=== PATIENT | male | born 1985 | race African-American/Black ===

== ENCOUNTER 2017-02-25 16:52 | Inpatient (IN) | payer OTHER ==
--- NOTE | 2017-02-25 17:14 | PDOC ---
History of Present Illness - General Chief Complaint: Sickle Cell Crisis Stated Complaint: SICKLE CELL CRISIS Time Seen by Provider: 02/25/17 17:12 History Source: Patient Exam Limitations: No Limitations - History of Present Illness Initial Comments: 02/25/17 17:13 Patient is a 31 year old male with history of sickle cell disease presenting with 2 days of low back pain and 1 day of left chest pain he feels is consistent with a sickle cell pain crisis. The pain started in his lower back. The patient initially attempted to manage the pain with his home medications but yesterday his back pain continued to get worse and he started having left sided chest pain that was not relieved with his home medications. His pain is currently 9/10 and only moderately relieved with his home pain medication and this quickly wears off. Patient denies fever, chills, shortness of breath, headache, dizziness, abdominal pain and joint pain. Patient had a previous pain crisis in July 2015 that resulted in hospital admission. Patient states his previous crisis was more painful than today and involved his whole body, primarily in his chest and joints. Today the pain is localized to his left chest and lower back. Patient's home medicine includes: Hydroxyurea 2 g per day , folic acid 1 mg per day, 15 mg immediate release morphine q4hr and 15 mg extended release morphine q6hr. Patient currently moved here from [place] and does not currently have a local PCP. Prior he was seen at the [facility] Past History - Past Medical History Allergies/Adverse Reactions: Allergies Allergy/AdvReac Type Severity Reaction Status Date / Time No Known Allergies Allergy Verified 02/25/17 17:07 Home Medications: Ambulatory Orders NK [No Known Home Medication] 02/25/17 Anemia: Yes (SICKLE CELL) - Psycho/Social/Smoking Cessation Hx Anxiety: No Suicidal Ideation: No Smoking History: Current every day smoker Number of Cigarettes Smoked Daily: 10 Information on smoking cessation initiated: No Hx Alcohol Use: No Drug/Substance Use Hx: No Substance Use Type: None Review of Systems - Review of Systems Able to Perform ROS?: Yes Is the patient limited Iraqi proficient: No Constitutional: No: Chills, Fever HEENTM: No: Throat Pain Respiratory: No: Cough, Shortness of Breath, Wheezing Cardiac (ROS): Yes: Chest Pain (Left side). No: Edema, Palpitations ABD/GI: Yes: Other (Denies abdominal pain). No: Constipated, Nausea, Vomiting Musculoskeletal: No: Joint Pain, Muscle Pain All Other Systems: Reviewed and Negative *Physical Exam - Vital Signs Last Vital Signs Temp Pulse Resp BP Pulse Ox 98.5 F 84 16 129/61 95 02/25/17 17:05 02/25/17 17:05 02/25/17 17:05 02/25/17 17:05 02/25/17 17:05 - Physical Exam General Appearance: Yes: Nourished HEENT: positive: Other (poor dentation) Respiratory/Chest: positive: Chest Tender, Lungs Clear, Normal Breath Sounds. negative: Respiratory Distress, Accessory Muscle Use Cardiovascular: positive: Regular Rhythm, Regular Rate, Systolic Murmur (2/6) Gastrointestinal/Abdominal: positive: Normal Bowel Sounds, Flat, Soft. negative : Tender, Distended, Guarding, Rebound, Tenderness, Hepatomegaly, Spleenomegaly Musculoskeletal: positive: Normal Inspection, Other (Tender to palpation over coccyx). negative: CVA Tenderness Integumentary: positive: Normal Color, Dry, Warm Neurologic: positive: director of business applications II-XII NML intact, Fully Oriented, Alert, Normal Mood/ Affect ED Treatment Course - LABORATORY CBC & Chemistry Diagram: 02/25/17 18:00 02/25/17 18:00 Medical Decision Making - Medical Decision Making 02/25/17 17:14 31 yo male with history of sickle cell and a previous pain crisis requiring hospitalization presenting with pain in his chest and lower back concerning for pain crisis. Ddx includes but is not limited to sickle cell crisis and numerous ischemic and thrombotic complications including acute chest syndrome, ACS ECG Pain Management Fluids and O2 Monitor CBC with Retculocytes, CMP CXR Cardiac enzymes Monitor and reevaluate patient Consider admission based on pain control 02/25/17 18:26 Patient saturations in the low 90s so he was placed on 1L by NC. 02/25/17 18:36 CBC WBC 13.0 K/mm3 (4.0-10.0) H 02/25/17 18:00 RBC 2.06 M/mm3 (4.00-5.60) L 02/25/17 18:00 Hgb 7.6 GM/dL (11.7-16.9) L 02/25/17 18:00 Hct 21.2 % (35.4-49) L 02/25/17 18:00 MCV 102.6 fl (80-96) H 02/25/17 18:00 MCH 36.9 pg (25.7-33.7) H 02/25/17 18:00 MCHC 36.0 g/dl (32.0-35.9) H 02/25/17 18:00 RDW 19.1 % (11.9-15.9) H 02/25/17 18:00 Plt Count 454 K/MM3 (134-434) H 02/25/17 18:00 MPV 7.5 fl (7.5-11.1) 02/25/17 18:00 Neutrophils % 57.0 % (42.8-82.8) 02/25/17 18:00 Lymphocytes % 24.6 % (8-40) 02/25/17 18:00 Monocytes % 13.6 % (3.8-10.2) H 02/25/17 18:00 Eosinophils % 4.3 % (0-4.5) 02/25/17 18:00 Basophils % 0.5 % (0-2.0) 02/25/17 18:00 Nucleated RBC % No Result Required. 02/25/17 18:00 Toxic Granulation No Result Required. 02/25/17 18:00 [place] Bodies No Result Required. 02/25/17 18:00 [place] Rods No Result Required. 02/25/17 18:00 Platelet Estimate Slt increase 02/25/17 18:00 Polychromasia 1+ 02/25/17 18:00 Poikilocytosis 1+ 02/25/17 18:00 Anisocytosis 1+ 02/25/17 18:00 Macrocytosis 1+ 02/25/17 18:00 Sickle Cells 1+ 02/25/17 18:00 Target Cells 1+ 02/25/17 18:00 Tear Drop Cells No Result Required. 02/25/17 18:00 Ovalocytes No Result Required. 02/25/17 18:00 [place] Bodies Seen 02/25/17 18:00 [place] Rings No Result Required. 02/25/17 18:00 Acanthocytes (Spur) No Result Required. 02/25/17 18:00 Morphology Comment Slide scanned 02/25/17 18:00 Retic Count 11.91 % (0.5-1.5) H* 02/25/17 18:00 Anemia with elevated reticulocyte count (11.91) and SS(+), consistent with SSA and a pain crisis. CMP Sodium 135 mmol/L (136-145) L 02/25/17 18:00 Potassium 4.4 mmol/L (3.5-5.1) 02/25/17 18:00 Chloride 102 mmol/L (98-107) 02/25/17 18:00 Carbon Dioxide 26 mmol/L (21-32) 02/25/17 18:00 Anion Gap 7 (8-16) L 02/25/17 18:00 BUN 9 mg/dL (7-18) 02/25/17 18:00 Creatinine 0.6 mg/dL (0.7-1.3) L 02/25/17 18:00 Creat Clearance w eGFR > 60 (>60) 02/25/17 18:00 Random Glucose 111 mg/dL (74-106) H 02/25/17 18:00 Calcium 9.0 mg/dL (8.5-10.1) 02/25/17 18:00 Total Bilirubin 3.2 mg/dL (0.2-1.0) H 02/25/17 18:00 AST 25 U/L (15-37) 02/25/17 18:00 ALT 31 U/L (12-78) 02/25/17 18:00 Alkaline Phosphatase 92 U/L (45-117) 02/25/17 18:00 Creatine Kinase 51 IU/L (39-308) 02/25/17 18:00 Troponin I < 0.02 ng/ml (0.00-0.05) 02/25/17 18:00 Total Protein 7.7 g/dl (6.4-8.2) 02/25/17 18:00 Albumin 4.0 g/dl (3.4-5.0) 02/25/17 18:00 Grossly within normal limits, Elebated bilirubin consistent with hemolysis. Cardiac enzymes non concerning. EKG: Normal rate and rhythm, delta waves consistent with WPW. Patient denies history of symptoms related to WPW Patient reports pain poorly managed with 1.5 mg total Dilaudid Patient care signed out to Dr. Rodriguez Consider admission if unable to adequately manage pain *DC/Admit/Observation/Transfer Diagnosis at time of Disposition: Sickle cell crisis
[2017-02-25] MEDS ORDERED: HYDROmorphone HCL CARPU-JECT 2 MG/1 ML DISP.SYRIN IVPUSH ONE (17:42)
[2017-02-25] MEDS ORDERED: SODIUM CHLORIDE 1,000 ML IV ONE (17:42)
--- NOTE | 2017-02-25 17:47 | PDOC ---
Attending Attestation - Resident Resident Name: Brijesh Sarmiento - ED Attending Attestation I have performed the following: I have examined & evaluated the patient, The case was reviewed & discussed with the resident, I agree w/resident's findings & plan, Exceptions are as noted - HPI HPI: 02/25/17 18:43 31y M hx of sickle cell disease on HU, FA, morphine PO presents with chest pain and back pain since saturday, no associated fever/chills. cough, n/v abd pain, schmidt. no prior complications of SS, last crisis was back in jul 2015. pts exam noted for mild reporudicble tenderness to the chest exam otherwise unremarakble and pt is in no distresss suspect apin crisis will treat pain hydration narcoitic cbc, retic, cmp, trop, ekg cxr to r/o acute chest 02/25/17 19:13 pt requiring multiple narcotic meds +anemia, +retic count anticpate admission for pain mainagement. cxr pending - Physicial Exam PE: 02/26/17 16:24 s mel torres - Medical Decision Making 02/26/17 16:24 see kendy e
[2017-02-25] MEDS ORDERED: HYDROmorphone HCL CARPU-JECT 1 MG/1 ML DISP.SYRIN ONE ×3 (18:17→20:08)
[2017-02-25 18:25] LABS: BASOPHIL 0.5 % (0-2.0); EOSINOPHIL 4.3 % (0-4.5); MCH 36.9 pg (25.7-33.7); MEAN CELL VOLUME 102.6 fl (80-96); MEAN PLT VOLUME 7.5 fl (7.5-11.1); PLATELET COUNT 454 K/MM3 (134-434); RDW 19.1 % (11.9-15.9)
[2017-02-25] MEDS ORDERED: HYDROmorphone HCL CARPU-JECT 1 MG/1 ML DISP.SYRIN IVPUSH ONE ×2 (18:41→19:52)
[2017-02-25 18:56] LABS: ANION GAP 7 (8-16); BILIRUBIN,TOTAL 3.2 mg/dL (0.2-1.0); CO2 26 mmol/L (21-32); CREATININE 0.6 mg/dL (0.7-1.3); GLUCOSE,RANDOM 111 mg/dL (74-106); SGOT/AST 25 U/L (15-37); SGPT/ALT 31 U/L (12-78); TOT PROT 7.7 g/dl (6.4-8.2)
[2017-02-25 18:57] LABS: ALK PHOS 92 U/L (45-117); CPK 51 IU/L (39-308); TROPONIN I < 0.02 ng/ml (0.00-0.05)
[2017-02-25 19:02] LABS: POLYCHROMASIA 1+
[2017-02-25 19:03] LABS: ANISOCYTOSIS 1+; MACROCYTOSIS 1+; POIKILOCYTOSIS 1+; TARGET CELLS 1+
[2017-02-25 19:08] LABS: RBC MORPHOLOGY COMMENT SLIDE SCANNED
[2017-02-25 19:10] LABS: HOWELL-JOLLY BODIES SEEN
[2017-02-25 20:15] LABS: PLATELET ESTIMATE SLT INCREASE
--- NOTE | 2017-02-25 20:50 | PDOC ---
*Physical Exam - Vital Signs Last Vital Signs Temp Pulse Resp BP Pulse Ox 98.5 F 84 16 129/61 100 02/25/17 17:05 02/25/17 17:05 02/25/17 17:05 02/25/17 17:05 02/25/17 17:30 <Adeel Whalen - Last Filed: 02/25/17 20:49> - Vital Signs Last Vital Signs Temp Pulse Resp BP Pulse Ox 98.5 F 84 16 129/61 100 02/25/17 17:05 02/25/17 17:05 02/25/17 17:05 02/25/17 17:05 02/25/17 17:30 <Ronit Rahman - Last Filed: 02/25/17 21:02> ED Treatment Course - LABORATORY CBC & Chemistry Diagram: 02/25/17 18:00 02/25/17 18:00 - ADDITIONAL ORDERS Additional order review: Laboratory Results 02/25/17 02/25/17 02/25/17 19:15 18:00 18:00 Sodium 135 L Potassium 4.4 Chloride 102 Carbon Dioxide 26 Anion Gap 7 L BUN 9 Creatinine 0.6 L Creat Clearance w eGFR > 60 Random Glucose 111 H Calcium 9.0 Total Bilirubin 3.2 H AST 25 ALT 31 Alkaline Phosphatase 92 Creatine Kinase 51 Troponin I < 0.02 Total Protein 7.7 Albumin 4.0 Blood Type O POSITIVE Antibody Screen Positive H 02/25/17 18:00 RBC 2.06 L MCV 102.6 H MCHC 36.0 H RDW 19.1 H MPV 7.5 Neutrophils % 57.0 Lymphocytes % 24.6 Monocytes % 13.6 H Eosinophils % 4.3 Basophils % 0.5 - Medications Given in the ED: ED Medications Discontinued Medications Generic Name Dose Route Start Last Admin Trade Name Freq PRN Reason Stop Dose Admin Hydromorphone HCl 0.5 mg 02/25/17 17:42 02/25/17 18:23 Dilaudid Injection - IVPUSH 02/25/17 17:43 0.5 mg ONCE ONE Administration Hydromorphone HCl 1 mg 02/25/17 18:41 02/25/17 19:01 Dilaudid Injection - IVPUSH 02/25/17 18:42 1 mg ONCE ONE Administration Hydromorphone HCl 1 mg 02/25/17 19:52 02/25/17 20:15 Dilaudid Injection - IVPUSH 02/25/17 19:53 1 mg ONCE ONE Administration Sodium Chloride 1,000 mls @ 1,000 mls/hr 02/25/17 17:42 02/25/17 18:23 Normal Saline - IV 02/25/17 18:41 1,000 mls/hr .Q1H ONE Administration <Adeel Whalen - Last Filed: 02/25/17 20:49> - LABORATORY CBC & Chemistry Diagram: 02/25/17 18:00 02/25/17 18:00 - ADDITIONAL ORDERS Additional order review: Laboratory Results 02/25/17 02/25/17 02/25/17 19:15 18:00 18:00 Sodium 135 L Potassium 4.4 Chloride 102 Carbon Dioxide 26 Anion Gap 7 L BUN 9 Creatinine 0.6 L Creat Clearance w eGFR > 60 Random Glucose 111 H Calcium 9.0 Total Bilirubin 3.2 H AST 25 ALT 31 Alkaline Phosphatase 92 Creatine Kinase 51 Troponin I < 0.02 Total Protein 7.7 Albumin 4.0 Blood Type O POSITIVE Antibody Screen Positive H 02/25/17 18:00 RBC 2.06 L MCV 102.6 H MCHC 36.0 H RDW 19.1 H MPV 7.5 Neutrophils % 57.0 Lymphocytes % 24.6 Monocytes % 13.6 H Eosinophils % 4.3 Basophils % 0.5 - Medications Given in the ED: ED Medications Discontinued Medications Generic Name Dose Route Start Last Admin Trade Name Freq PRN Reason Stop Dose Admin Hydromorphone HCl 0.5 mg 02/25/17 17:42 02/25/17 18:23 Dilaudid Injection - IVPUSH 02/25/17 17:43 0.5 mg ONCE ONE Administration Hydromorphone HCl 1 mg 02/25/17 18:41 02/25/17 19:01 Dilaudid Injection - IVPUSH 02/25/17 18:42 1 mg ONCE ONE Administration Hydromorphone HCl 1 mg 02/25/17 19:52 02/25/17 20:15 Dilaudid Injection - IVPUSH 02/25/17 19:53 1 mg ONCE ONE Administration Sodium Chloride 1,000 mls @ 1,000 mls/hr 02/25/17 17:42 02/25/17 18:23 Normal Saline - IV 02/25/17 18:41 1,000 mls/hr .Q1H ONE Administration <Ronit Rahman - Last Filed: 02/25/17 21:02> Medical Decision Making - Medical Decision Making 02/25/17 21:01 Dr. Trevino paged via phone answering service. Patient's case was discussed. Patient admitted under Dr. Franco services. <Ronit Rahman - Last Filed: 02/25/17 21:02> *DC/Admit/Observation/Transfer - Discharge Dispostion Admit: Yes <Adeel Whalen - Last Filed: 02/25/17 20:49> - Attestations Scribe Attestion: 02/25/17 21:02 Documentation prepared by Ronit Rahman, acting as medical care evaluation specialist for Adeel Whalen DO. <Ronit Rahman - Last Filed: 02/25/17 21:02> Diagnosis at time of Disposition: Sickle cell crisis
--- NOTE | 2017-02-25 22:58 | PDOC ---
*Physical Exam - Vital Signs Last Vital Signs Temp Pulse Resp BP Pulse Ox 98.5 F 82 20 118/63 96 02/25/17 17:05 02/25/17 22:42 02/25/17 22:42 02/25/17 22:42 02/25/17 22:42 - Physical Exam General Appearance: Yes: Nourished, Appropriately Dressed, Obese Neck: positive: Trachea midline, Supple Respiratory/Chest: positive: Lungs Clear, Normal Breath Sounds Cardiovascular: positive: Regular Rhythm, Regular Rate Gastrointestinal/Abdominal: positive: Normal Bowel Sounds, Soft Integumentary: positive: Normal Color, Dry, Warm Neurologic: positive: blog writer II-XII NML intact, Fully Oriented, Alert ED Treatment Course - LABORATORY CBC & Chemistry Diagram: 02/25/17 18:00 02/25/17 18:00 - ADDITIONAL ORDERS Additional order review: Laboratory Results 02/25/17 02/25/17 02/25/17 19:15 18:00 18:00 Sodium 135 L Potassium 4.4 Chloride 102 Carbon Dioxide 26 Anion Gap 7 L BUN 9 Creatinine 0.6 L Creat Clearance w eGFR > 60 Random Glucose 111 H Calcium 9.0 Total Bilirubin 3.2 H AST 25 ALT 31 Alkaline Phosphatase 92 Creatine Kinase 51 Troponin I < 0.02 Total Protein 7.7 Albumin 4.0 Blood Type O POSITIVE Antibody Screen Positive H 02/25/17 18:00 RBC 2.06 L MCV 102.6 H MCHC 36.0 H RDW 19.1 H MPV 7.5 Neutrophils % 57.0 Lymphocytes % 24.6 Monocytes % 13.6 H Eosinophils % 4.3 Basophils % 0.5 - Medications Given in the ED: ED Medications Discontinued Medications Generic Name Dose Route Start Last Admin Trade Name Joseq PRN Reason Stop Dose Admin Hydromorphone HCl 0.5 mg 02/25/17 17:42 02/25/17 18:23 Dilaudid Injection - IVPUSH 02/25/17 17:43 0.5 mg ONCE ONE Administration Hydromorphone HCl 1 mg 02/25/17 18:41 02/25/17 19:01 Dilaudid Injection - IVPUSH 02/25/17 18:42 1 mg ONCE ONE Administration Hydromorphone HCl 1 mg 02/25/17 19:52 02/25/17 20:15 Dilaudid Injection - IVPUSH 02/25/17 19:53 1 mg ONCE ONE Administration Sodium Chloride 1,000 mls @ 1,000 mls/hr 02/25/17 17:42 02/25/17 18:23 Normal Saline - IV 02/25/17 18:41 1,000 mls/hr .Q1H ONE Administration Medical Decision Making - Medical Decision Making 02/25/17 22:59 Patient is a 31 y.o. male with a PMH of SCD who presents with pain in his lower back and chest consistent with his the pain experienced on his previous episodes of SC pain. CBC showed expected anemia with appropriate reticulocytic response. CXR was negative for any acute cardiopulmonary process however showed a minimal R pleural effusion and 1 cm nodular opacity in the R Lateral lung base. 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 *DC/Admit/Observation/Transfer Diagnosis at time of Disposition: Sickle cell crisis
[2017-02-26] MEDS ORDERED: SODIUM CHLORIDE 1,000 ML IV SCH ×2 (00:15→11:00)
[2017-02-26] MEDS: HYDROmorphone HCL CARPU-JECT 1 MG/1 ML DISP.SYRIN IVPB PRN ×2 (00:16→06:43)
[2017-02-26 02:00] VITALS: BMI 21.0
[2017-02-26 07:50] LABS: BASOPHIL 0.5 % (0-2.0); EOSINOPHIL 4.4 % (0-4.5); MCH 36.8 pg (25.7-33.7); MCHC 35.7 g/dl (32.0-35.9); MEAN CELL VOLUME 103.1 fl (80-96); MEAN PLT VOLUME 7.5 fl (7.5-11.1); NEUTROPHILS 61.7 % (42.8-82.8); PLATELET COUNT 392 K/MM3 (134-434); RDW 18.2 % (11.9-15.9); WHITE BLOOD COUNT 11.5 K/mm3 (4.0-10.0)
[2017-02-26 08:03] LABS: CALCIUM 8.4 mg/dL (8.5-10.1)
[2017-02-26 08:09] LABS: ALBUMIN 3.7 g/dl (3.4-5.0); ALK PHOS 89 U/L (45-117); ANION GAP 7 (8-16); BILIRUBIN,TOTAL 2.9 mg/dL (0.2-1.0); CO2 26 mmol/L (21-32); CREATININE 0.4 mg/dL (0.7-1.3); GLUCOSE,RANDOM 102 mg/dL (74-106); SGOT/AST 18 U/L (15-37); SGPT/ALT 27 U/L (12-78); TOT PROT 6.9 g/dl (6.4-8.2)
[2017-02-26] MEDS ORDERED: HYDROmorphone HCL CARPU-JECT 1 MG/1 ML DISP.SYRIN IVPB ONE (09:00)
[2017-02-26] MEDS ORDERED: HYDROmorphone HCL CARPU-JECT 2 MG/1 ML DISP.SYRIN IVPB PRN ×2 (10:49→14:49)
[2017-02-26] MEDS: oxyCODONE HCL 5 MG TABLET PO PRN ×3 (12:42→20:56)
--- NOTE | 2017-02-26 12:57 | CONSULT ---
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 hx of sickle cell disease on HU (2g daily) , FA, morphine PO (15mg twice daily) presents with chest pain and back pain since saturday, no associated fever/ chills. no cough, n/v abd pain, schmidt. no prior complications of SS, last crisis was back in jul 2015. Febrile to 100.6 in the ER Admitted was given IVF. Pt seen and examined,Used to follow up with doctor at [facility]. - History Source History Provided By: Patient, Medical Record Limitations to Obtaining History: No Limitations - Alcohol/Substance Use Hx Alcohol Use: No - Smoking History Smoking history: Current every day smoker Aproximately how many cigarettes per day: 10 Home Medications - Allergies Allergies/Adverse Reactions: Allergies Allergy/AdvReac Type Severity Reaction Status Date / Time No Known Allergies Allergy Verified 02/25/17 17:07 - Home Medications Home Medications: Ambulatory Orders NK [No Known Home Medication] 02/25/17 Review of Systems - Review of Systems Constitutional: reports: Weakness. denies: Loss of Appetite, Night Sweats, Unintentional Wgt. Loss HENT: denies: Difficult Swallowing Neck: denies: Decreased ROM, Lumps, Pain on Movement Cardiovascular: reports: Chest Pain, Other (pleuritic left side). denies: Shortness of Breath Gastrointestinal: denies: Abdominal Pain, Diarrhea, Nausea, Vomiting Musculoskeletal: reports: Back Pain, Extremity Pain Hematology/Lymphatic: denies: Easily Bruised, Excessive Bleeding, Swollen Glands Physical Exam Vital Signs: Vital Signs Temperature 98.2 F 02/26/17 06:00 Pulse Rate 64 02/26/17 11:51 Respiratory Rate 16 02/26/17 11:51 Blood Pressure 132/56 02/26/17 11:51 O2 Sat by Pulse Oximetry (%) 99 02/26/17 05:03 Constitutional: Yes: No Distress, Calm Eyes: Yes: Sclera Icterus, Other (mild) HENT: Yes: Atraumatic, Normocephalic Neck: Yes: Supple, Trachea Midline Cardiovascular: Yes: Regular Rate and Rhythm Respiratory: Yes: Regular, CTA Bilaterally. 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 VOC pain crises Plan: -pain control, will continue present for now, might need a standing long acting regimen and a breakthrough prn -IVF -F.u vitals -PRBC ordered ( ab screen positive, awaiting characterization) .But pt very relcutatnt to take PRBC as he was told that he has iron overload and was told to avoid tramsfusions. he did agreed to get a repeat CBC this pm and if still down trending will consider PRBC -Incentive spirometer -resum hydrea upon discharge, he is on 2g daily -added Hemoglobin electrophoresis to the existing labs -CXR with bibasilar atelectasis, one cm nodular opacity also , Incentive spirometer. was febrile to 100.6 in the ER, will give abx, with ceftriaxone/ azithromycin,pending course will need to change to PO levaquin or moxi. 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 will follow discussed with [facility]
[2017-02-26] MEDS ORDERED: HYDROXYUREA 500 MG CAPSULE PO SCH (13:30)
[2017-02-26] MEDS ORDERED: cefTRIAXone SODIUM 1 GM VIAL ONE (13:35)
[2017-02-26] MEDS ORDERED: DEXTROSE 5%-WATER - 50 ML IVPB ONE (13:36)
[2017-02-26] MEDS: HYDROmorphone HCL CARPU-JECT 2 MG/1 ML DISP.SYRIN IVPB PRN ×3 (13:56→22:42)
[2017-02-26] MEDS: CEFTRIAXONE 1 GM in DEXTROSE 5%-WATER - 50 ML IVPB SCH (14:20)
[2017-02-26] MEDS: AZITHROMYCIN 250 MG TABLET (FP) PO SCH (14:20)
[2017-02-26 18:43] LABS: MCH 36.3 pg (25.7-33.7); MCHC 34.8 g/dl (32.0-35.9); MEAN CELL VOLUME 104.2 fl (80-96); MEAN PLT VOLUME 7.8 fl (7.5-11.1); PLATELET COUNT 435 K/MM3 (134-434); RDW 17.8 % (11.9-15.9); WHITE BLOOD COUNT 11.4 K/mm3 (4.0-10.0)
--- NOTE | 2017-02-26 20:18 | HP ---
Admitting History and Physical - Primary Care Physician PCP: Chilo Franco - Admission History of Present Illness: 31 year old male with history of sickle cell disease presenting with 2 days of low back pain and 1 day of left chest pain he feels is consistent with a sickle cell pain crisis. The pain started in his lower back. The patient initially attempted to manage the pain with his home medications but pain continued to get worse and he started having left sided chest pain that was not relieved with his home medications. - Past Medical History Heme/Onc: Yes: Sickle Cell Disease - Smoking History Smoking history: Current every day smoker Aproximately how many cigarettes per day: 10 - Alcohol/Substance Use Hx Alcohol Use: No Home Medications - Allergies Allergies/Adverse Reactions: Allergies Allergy/AdvReac Type Severity Reaction Status Date / Time No Known Allergies Allergy Verified 02/25/17 17:07 - Home Medications Home Medications: Ambulatory Orders NK [No Known Home Medication] 02/25/17 Physical Examination Vital Signs: Vital Signs Temperature 99.9 F H 02/26/17 18:00 Pulse Rate 70 02/26/17 18:00 Respiratory Rate 18 02/26/17 18:00 Blood Pressure 121/42 02/26/17 18:00 O2 Sat by Pulse Oximetry (%) 99 02/26/17 05:03 Constitutional: Yes: No Distress HENT: Yes: Atraumatic Neck: Yes: Supple Cardiovascular: Yes: Regular Rate and Rhythm Respiratory: Yes: CTA Bilaterally Gastrointestinal: Yes: Normal Bowel Sounds Extremities: Yes: WNL Edema: No Neurological: Yes: Alert, Oriented Labs: CBC, BMP 02/26/17 17:45 02/26/17 07:00 Problem List - Problems (1) Sickle cell crisis Assessment/Plan: ivf prn pain meds on iv abx to cover for infection hematology consult Code(s): D57.00 - HB-SS DISEASE WITH CRISIS, UNSPECIFIED Assessment/Plan Laboratory Tests 02/25/17 02/25/17 02/25/17 18:00 18:00 18:00 WBC 13.0 H RBC 2.06 L Hgb 7.6 L Hct 21.2 L MCV 102.6 H MCH 36.9 H MCHC 36.0 H RDW 19.1 H Plt Count 454 H MPV 7.5 Neutrophils % 57.0 Lymphocytes % 24.6 Monocytes % 13.6 H Eosinophils % 4.3 Basophils % 0.5 Nucleated RBC % No Result Required. Toxic Granulation No Result Required. Dohle Bodies No Result Required. Amarilys Rods No Result Required. Platelet Estimate Slt increase Polychromasia 1+ Poikilocytosis 1+ Anisocytosis 1+ Macrocytosis 1+ Sickle Cells 1+ Target Cells 1+ Tear Drop Cells No Result Required. Ovalocytes No Result Required. Orozco-Wingate Bodies Seen [place] Rings No Result Required. Acanthocytes (Spur) No Result Required. Morphology Comment Slide scanned Retic Count 11.91 H* Sodium Potassium Chloride Carbon Dioxide Anion Gap BUN Creatinine Creat Clearance w eGFR Random Glucose Calcium Total Bilirubin AST ALT Alkaline Phosphatase Creatine Kinase Troponin I Total Protein Albumin Blood Type Cancelled Antibody Screen Cancelled Antibody Identification Crossmatch Spec Expiration Date Cancelled 02/25/17 02/25/17 02/25/17 18:00 18:00 19:15 WBC RBC Hgb Hct MCV MCH MCHC RDW Plt Count MPV Neutrophils % Lymphocytes % Monocytes % Eosinophils % Basophils % Nucleated RBC % Toxic Granulation Dohle Bodies Amarilys Rods Platelet Estimate Polychromasia Poikilocytosis Anisocytosis Macrocytosis Sickle Cells Target Cells Tear Drop Cells Ovalocytes Orozco-[place]ing[place] Bodies [place] Rings Acanthocytes (Spur) Morphology Comment Retic Count Sodium 135 L Potassium 4.4 Chloride 102 Carbon Dioxide 26 Anion Gap 7 L BUN 9 Creatinine 0.6 L Creat Clearance w eGFR > 60 Random Glucose 111 H Calcium 9.0 Total Bilirubin 3.2 H AST 25 ALT 31 Alkaline Phosphatase 92 Creatine Kinase 51 Troponin I < 0.02 Total Protein 7.7 Albumin 4.0 Blood Type O POSITIVE Antibody Screen Positive H Antibody Identification WARM AUTOIMMUNE HEMO ANEMIA Crossmatch Spec Expiration Date 02/26/17 02/26/17 02/26/17 07:00 07:00 07:00 WBC 11.5 H RBC 1.88 L Hgb 6.9 L* Hct 19.4 L MCV 103.1 H MCH 36.8 H MCHC 35.7 RDW 18.2 H Plt Count 392 MPV 7.5 Neutrophils % 61.7 Lymphocytes % 19.2 D Monocytes % 14.2 H Eosinophils % 4.4 Basophils % 0.5 Nucleated RBC % Toxic Granulation Dohle Bodies Amarilys Rods Platelet Estimate Polychromasia Poikilocytosis Anisocytosis Macrocytosis Sickle Cells Target Cells Tear Drop Cells Ovalocytes Orozco-[place]ing[place] Bodies [place] Rings Acanthocytes (Spur) Morphology Comment Retic Count Sodium 137 Potassium 4.4 Chloride 104 Carbon Dioxide 26 Anion Gap 7 L BUN 7 D Creatinine 0.4 L D Creat Clearance w eGFR > 60 Random Glucose 102 Calcium 8.4 L Total Bilirubin 2.9 H AST 18 D ALT 27 Alkaline Phosphatase 89 Creatine Kinase Troponin I Total Protein 6.9 Albumin 3.7 Blood Type Antibody Screen Antibody Identification Crossmatch See Detail Spec Expiration Date 02/26/17 17:45 WBC 11.4 H RBC 2.04 L Hgb 7.4 L Hct 21.2 L MCV 104.2 H MCH 36.3 H MCHC 34.8 RDW 17.8 H Plt Count 435 H MPV 7.8 Neutrophils % Lymphocytes % Monocytes % Eosinophils % Basophils % Nucleated RBC % Toxic Granulation Dohle Bodies Amarilys Rods Platelet Estimate Polychromasia Poikilocytosis Anisocytosis Macrocytosis Sickle Cells Target Cells Tear Drop Cells Ovalocytes Orozco-[place]ing[place] Bodies [place] Rings Acanthocytes (Spur) Morphology Comment Retic Count Sodium Potassium Chloride Carbon Dioxide Anion Gap BUN Creatinine Creat Clearance w eGFR Random Glucose Calcium Total Bilirubin AST ALT Alkaline Phosphatase Creatine Kinase Troponin I Total Protein Albumin Blood Type Antibody Screen Antibody Identification Crossmatch Spec Expiration Date Active Medications Generic Name Dose Route Start Last Admin Trade Name Freq PRN Reason Stop Dose Admin Azithromycin 500 mg 02/26/17 13:30 02/26/17 14:20 Zithromax - PO 500 mg DAILY AARON Administration Hydromorphone HCl 2 mg 02/26/17 13:30 02/26/17 18:04 Dilaudid Injection - IVPB 2 mg Q4H PRN Administration Ceftriaxone Sodium 1 gm/ 50 mls @ 100 mls/hr 02/26/17 13:30 02/26/17 14:20 Dextrose IVPB 100 mls/hr DAILY AARON Administration Sodium Chloride 1,000 mls @ 75 mls/hr 02/26/17 19:30 Normal Saline - IV ASDIR AARON Oxycodone HCl 5 mg 02/26/17 00:13 02/26/17 16:55 Roxicodone - PO 5 mg Q4H PRN Administration
[2017-02-26] MEDS: SODIUM CHLORIDE 1,000 ML IV SCH (20:56)
[2017-02-26] MEDS: HEPARIN NA (PORCINE) 5,000 UNITS/ML 1ML VIAL SQ SCH (21:01)
[2017-02-26] MEDS: NICOTINE 21 MG/24 HOURS TOPICAL PATCH TD SCH (22:42)
[2017-02-27] MEDS: SODIUM CHLORIDE 1,000 ML IV SCH ×2 (01:41→21:39)
[2017-02-27] MEDS: HYDROmorphone HCL CARPU-JECT 2 MG/1 ML DISP.SYRIN IVPB PRN ×5 (03:09→22:38)
[2017-02-27] MEDS: oxyCODONE HCL 5 MG TABLET PO PRN ×3 (06:04→16:12)
[2017-02-27] MEDS: HEPARIN NA (PORCINE) 5,000 UNITS/ML 1ML VIAL SQ SCH ×3 (06:41→21:37)
[2017-02-27 07:36] LABS: MCH 37.1 pg (25.7-33.7); MEAN PLT VOLUME 7.2 fl (7.5-11.1); PLATELET COUNT 426 K/MM3 (134-434); RDW 17.4 % (11.9-15.9); WHITE BLOOD COUNT 10.9 K/mm3 (4.0-10.0)
[2017-02-27 07:56] LABS: ALBUMIN 3.4 g/dl (3.4-5.0); ANION GAP 5 (8-16); CALCIUM 8.6 mg/dL (8.5-10.1); CO2 26 mmol/L (21-32); GLUCOSE,RANDOM 88 mg/dL (74-106); SGOT/AST 16 U/L (15-37); SGPT/ALT 24 U/L (12-78)
[2017-02-27 07:58] LABS: ALK PHOS 82 U/L (45-117); BILIRUBIN,DIRECT 0.4 mg/dL (0.0-0.2); BILIRUBIN,TOTAL 3.1 mg/dL (0.2-1.0); CREATININE 0.4 mg/dL (0.7-1.3); TOT PROT 6.9 g/dl (6.4-8.2)
[2017-02-27] MEDS ORDERED: PT OWN MED DRAWER 7, Y5N ONE (09:48)
[2017-02-27] MEDS ORDERED: DEXTROSE 5%-WATER - 50 ML IVPB ONE (09:48)
[2017-02-27] MEDS ORDERED: cefTRIAXone SODIUM 1 GM VIAL ONE (09:48)
[2017-02-27] MEDS: CEFTRIAXONE 1 GM in DEXTROSE 5%-WATER - 50 ML IVPB SCH (09:50)
[2017-02-27] MEDS: AZITHROMYCIN 250 MG TABLET (FP) PO SCH (09:50)
[2017-02-27] MEDS: NICOTINE 21 MG/24 HOURS TOPICAL PATCH TD SCH (09:50)
--- NOTE | 2017-02-27 11:37 | CON.PULM ---
Consult Consult Specialty:: PULMONARY Referred by:: Dr. Franco Reason for Consultation:: lung nodule - History of Present Illness Chief Complaint: chest pain History of Present Illness: 31yo male with h/o sickle cell disease (SS) who presents with chest and back pain typical of his sickle cell crisis. Denies any shortness of breath, cough, fevers or chills. Admission CXR showing RLL nodule. States that his last CXR which was done in [place] in Aug/Sep was reportedly normal. He is a 1/2 PPD smoker since age 15. No family history of lung cancer, maternal grandmother with gastric ca. No subjective fevers, chills or sweats. No unintentional weight loss. Denies any contact with people with TB, last PPD was remote but was negative. - History Source History Provided By: Patient, Medical Record Limitations to Obtaining History: No Limitations - Past Medical History Heme/Onc: Yes: Sickle Cell Disease - Alcohol/Substance Use Hx Alcohol Use: No - Smoking History Smoking history: Current every day smoker Aproximately how many cigarettes per day: 10 Home Medications - Allergies Allergies/Adverse Reactions: Allergies Allergy/AdvReac Type Severity Reaction Status Date / Time No Known Allergies Allergy Verified 02/25/17 17:07 - Home Medications Home Medications: Ambulatory Orders NK [No Known Home Medication] 02/25/17 Family Disease History - Family Disease History Family Disease History: CA: Grandparent (gastric) Review of Systems - Review of Systems Constitutional: denies: Chills, Fever Eyes: denies: Recent Change in Vision HENT: denies: Nasal Congestion, Throat Pain Neck: denies: Stiffness, Tenderness Cardiovascular: reports: Chest Pain. denies: Edema, Shortness of Breath Respiratory: denies: Cough, Hemoptysis, SOB, SOB on Exertion, Wheezing Gastrointestinal: denies: Abdominal Pain, Nausea, Vomiting Genitourinary: denies: Dysuria, Hematuria Neurological: denies: Dizziness, Headache Endocrine: denies: Unexplained Weight Loss Physical Exam Vital Sings: Vital Signs Temperature 98.4 F 02/27/17 06:00 Pulse Rate 76 02/27/17 09:32 Respiratory Rate 16 02/27/17 09:32 Blood Pressure 121/65 02/27/17 09:32 O2 Sat by Pulse Oximetry (%) 96 02/27/17 09:00 Constitutional: Yes: Calm Eyes: Yes: Conjunctiva Clear, EOM Intact HENT: Yes: Atraumatic, Normocephalic Neck: Yes: Supple, Trachea Midline Cardiovascular: Yes: Regular Rate and Rhythm Respiratory: Yes: Rales (few basilar rales) ...Clubbing: No Gastrointestinal: Yes: Normal Bowel Sounds, Soft. No: Tenderness Edema: No Neurological: Yes: Alert, Oriented Labs: CBC, BMP 02/27/17 06:10 02/27/17 06:10 Imaging - Results Chest X-ray: Report Reviewed, Image Reviewed (RLL nodule) Problem List - Problems (1) Sickle cell crisis Code(s): D57.00 - HB-SS DISEASE WITH CRISIS, UNSPECIFIED (2) Lung nodule Code(s): R91.1 - SOLITARY PULMONARY NODULE Assessment/Plan Sickle Cell Crisis Lung Nodule Smoker - will obtain CT chest noncontrast to further evaluate the nodule - continue IVF - O2 - pain control - incentive spirometry - DVT prophylaxis Thank you for this consult Huy Prather MD
--- NOTE | 2017-02-27 13:20 | PN ---
Progress Note (short form) - Note Progress Note: Hematology Progress Note: Patient seen and examined. Chart reviewed. Labs reviewed. Pt feels a little bit better than yesterday. His pain is controlled. Last Vital Signs Temp Pulse Resp BP Pulse Ox 98.4 F 76 16 121/65 96 02/27/17 06:00 02/27/17 09:32 02/27/17 09:32 02/27/17 09:32 02/27/17 09:00 Current Medications Generic Name Dose Route Start Last Admin Trade Name Freq PRN Reason Stop Dose Admin Azithromycin 500 mg 02/26/17 13:30 02/27/17 09:50 Zithromax - PO 500 mg DAILY AARON Administration Heparin Sodium (Porcine) 5,000 unit 02/26/17 22:00 02/27/17 06:41 Heparin - SQ 5,000 unit TID AARON Administration Hydromorphone HCl 2 mg 02/26/17 13:30 02/27/17 12:27 Dilaudid Injection - IVPB 2 mg Q4H PRN Administration Ceftriaxone Sodium 1 gm/ 50 mls @ 100 mls/hr 02/26/17 13:30 02/27/17 09:50 Dextrose IVPB 100 mls/hr DAILY AARON Administration Sodium Chloride 1,000 mls @ 75 mls/hr 02/26/17 19:30 02/27/17 01:41 Normal Saline - IV 75 mls/hr ASDIR AARON Administration Nicotine 21 mg 02/26/17 22:00 02/27/17 09:50 Nicoderm Patch - TD 21 mg DAILY AARON Administration Oxycodone HCl 5 mg 02/26/17 00:13 02/27/17 11:31 Roxicodone - PO 5 mg Q4H PRN Administration CBC, BMP 02/27/17 06:10 02/27/17 06:10 Assessment/Plan: Sickle cell disease 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 VOC pain crises 1cm Lung nodule Plan: -pain control -IVF -F.u vitals -agreed for PRBC today, ordered one unit. Anti-H noted -Incentive spirometer encouraged -resume hydrea upon discharge, he is on 2g daily -f.u Hemoglobin electrophoresis -C/w abx, await ID input -Pulm note reviewed, for CT chest -repeat labs CBC chem LDH retic in the am Misc: Pt just moved to [place], he is unsure of his social situation yet. He mentioned to me that he would for now decided to continue travel to [place] ( [facility]emat[facility] clinic) for sickle cell care as he goes there once a month. Advised him if he decides to follow local, he could give us a call. will follow discussed with RN Problem List - Problems (1) Sickle cell crisis Code(s): D57.00 - HB-SS DISEASE WITH CRISIS, UNSPECIFIED
--- NOTE | 2017-02-27 15:00 | CONSULT ---
Consult Consult Specialty:: infectious diseases Reason for Consultation:: fever - History of Present Illness Chief Complaint: weakness.pain History of Present Illness: 31 year old with reported hgSS disease, is here with back pain and chest pain. according to the patient started having pain and patient came to the hospital on saturday hx of sickle cell disease on HU (2g daily) , FA, morphine PO (15mg twice daily) presents with chest pain and back pain since saturday, patients last crisis was in jul of last year. currently patient is very uncomfortable and chest pain is the main issue on work up patient does show a small nodule in the chest patient had a low grade fever and was called for the same - History Source History Provided By: Patient Limitations to Obtaining History: No Limitations - Alcohol/Substance Use Hx Alcohol Use: No - Smoking History Smoking history: Current every day smoker Aproximately how many cigarettes per day: 10 Home Medications - Allergies Allergies/Adverse Reactions: Allergies Allergy/AdvReac Type Severity Reaction Status Date / Time No Known Allergies Allergy Verified 02/25/17 17:07 - Home Medications Home Medications: Ambulatory Orders NK [No Known Home Medication] 02/25/17 Family Disease History - Family Disease History Family Disease History: CA: Grandparent (gastric) Review of Systems - Review of Systems Constitutional: reports: Fever, Weakness Eyes: reports: No Symptoms HENT: reports: No Symptoms Neck: reports: No Symptoms Cardiovascular: reports: No Symptoms Respiratory: reports: No Symptoms Gastrointestinal: reports: No Symptoms Genitourinary: reports: No Symptoms Musculoskeletal: reports: Muscle Pain, Other (chest pain) Integumentary: reports: No Symptoms Neurological: reports: No Symptoms Hematology/Lymphatic: reports: No Symptoms Psychiatric: reports: No Symptoms Physical Exam Vital Signs: Vital Signs Temperature 98.7 F 02/27/17 14:48 Pulse Rate 76 02/27/17 14:48 Respiratory Rate 20 02/27/17 14:48 Blood Pressure 115/56 02/27/17 14:48 O2 Sat by Pulse Oximetry (%) 96 02/27/17 09:00 Constitutional: Yes: Calm, Mild Distress, Thin Eyes: Yes: Conjunctiva Clear HENT: Yes: Atraumatic Neck: Yes: Supple Cardiovascular: Yes: Regular Rate and Rhythm, Tachycardia Respiratory: Yes: Regular, CTA Bilaterally Gastrointestinal: Yes: Normal Bowel Sounds, Soft Musculoskeletal: Yes: WNL Extremities: Yes: WNL Neurological: Yes: Alert, Oriented Psychiatric: Yes: Alert Labs: CBC, BMP 02/27/17 06:10 02/27/17 06:10 Imaging - Results Chest X-ray: Report Reviewed, Image Reviewed Assessment/Plan - Problems (1) Sickle cell crisis Code(s): D57.00 - HB-SS DISEASE WITH CRISIS, UNSPECIFIED (2) Lung nodule Code(s): R91.1 - SOLITARY PULMONARY NODULE chest pain plan will not start abx at this time close watch on chest pain pul on case patient for ct scan rest as per primary team if patient starts spiking then might need to start abx
--- NOTE | 2017-02-27 16:44 | EKG ---
Test Reason : Blood Pressure : / mmHG Vent. Rate : 058 BPM Atrial Rate : 058 BPM P-R Int : 136 ms QRS Dur : 152 ms QT Int : 498 ms P-R-T Axes : -01 -50 097 degrees QTc Int : 488 ms SINUS BRADYCARDIA [id number] ABNORMAL ECG WHEN COMPARED WITH ECG OF 25-FEB-2017 18:54, NO SIGNIFICANT CHANGE WAS FOUND Confirmed by ALISTAIR BIANCHI MD ([id number]) on 02/27/2017 4:44:11 PM Referred By: JEANIE GUTIERREZ DR Confirmed By:ALISTAIR BIANCHI MD
--- NOTE | 2017-02-27 19:05 | PN ---
Progress Note, Physician History of Present Illness: doing well - Current Medication List Current Medications: Active Medications Azithromycin (Zithromax -) 500 mg PO DAILY [facility] Last Admin: 02/27/17 09:50 Dose: 500 mg Heparin Sodium (Porcine) (Heparin -) 5,000 unit SQ TID [facility] Last Admin: 02/27/17 13:42 Dose: 5,000 unit Hydromorphone HCl (Dilaudid Injection -) 2 mg IVPB Q4H PRN Last Admin: 02/27/17 18:08 Dose: 2 mg Ceftriaxone Sodium 1 gm/ (Dextrose) 50 mls @ 100 mls/hr IVPB DAILY [facility] Last Admin: 02/27/17 09:50 Dose: 100 mls/hr Sodium Chloride (Normal Saline -) 1,000 mls @ 75 mls/hr IV ASDIR [facility] Last Admin: 02/27/17 01:41 Dose: 75 mls/hr Nicotine (Nicoderm Patch -) 21 mg TD DAILY [facility] Last Admin: 02/27/17 09:50 Dose: 21 mg Oxycodone HCl (Roxicodone -) 5 mg PO Q4H PRN Last Admin: 02/27/17 16:12 Dose: 5 mg - Objective Vital Signs: Vital Signs Temperature 98.6 F 02/27/17 18:33 Pulse Rate 79 02/27/17 18:33 Respiratory Rate 18 02/27/17 18:33 Blood Pressure 123/80 02/27/17 18:33 O2 Sat by Pulse Oximetry (%) 96 02/27/17 09:00 Constitutional: Yes: No Distress HENT: Yes: Atraumatic Neck: Yes: Supple Cardiovascular: Yes: Regular Rate and Rhythm Respiratory: Yes: CTA Bilaterally Gastrointestinal: Yes: Normal Bowel Sounds Extremities: Yes: WNL Neurological: Yes: Alert, Oriented Labs: CBC, BMP 02/27/17 06:10 02/27/17 06:10 Problem List - Problems (1) Sickle cell crisis Assessment/Plan: continue ivf prn pain meds on iv abx to cover for infection Code(s): D57.00 - HB-SS DISEASE WITH CRISIS, UNSPECIFIED (2) Lung nodule Code(s): R91.1 - SOLITARY PULMONARY NODULE Assessment/Plan
[2017-02-27 19:48] LABS: BASOPHIL 0.6 % (0-2.0); EOSINOPHIL 3.8 % (0-4.5); MCH 34.8 pg (25.7-33.7); MCHC 34.4 g/dl (32.0-35.9); MEAN PLT VOLUME 7.7 fl (7.5-11.1); NEUTROPHILS 62.6 % (42.8-82.8); PLATELET COUNT 454 K/MM3 (134-434); RDW 18.8 % (11.9-15.9); WHITE BLOOD COUNT 10.2 K/mm3 (4.0-10.0)
[2017-02-28] MEDS: SODIUM CHLORIDE 1,000 ML IV SCH ×3 (02:22→18:47)
[2017-02-28] MEDS: HYDROmorphone HCL CARPU-JECT 2 MG/1 ML DISP.SYRIN IVPB PRN ×4 (02:40→16:57)
[2017-02-28] MEDS: HEPARIN NA (PORCINE) 5,000 UNITS/ML 1ML VIAL SQ SCH ×2 (06:29→14:56)
[2017-02-28 08:13] LABS: MCH 35.6 pg (25.7-33.7); MCHC 35.2 g/dl (32.0-35.9); MEAN CELL VOLUME 101.2 fl (80-96); MEAN PLT VOLUME 8.2 fl (7.5-11.1); PLATELET COUNT 444 K/MM3 (134-434); RDW 18.3 % (11.9-15.9)
[2017-02-28] MEDS ORDERED: DEXTROSE 5%-WATER - 50 ML IVPB ONE ×2 (09:52→09:59)
[2017-02-28] MEDS ORDERED: cefTRIAXone SODIUM 1 GM VIAL ONE ×2 (09:52→09:59)
[2017-02-28] MEDS ORDERED: PT OWN MED DRAWER 7, Y5N ONE (09:52)
[2017-02-28] MEDS: NICOTINE 21 MG/24 HOURS TOPICAL PATCH TD SCH (09:55)
[2017-02-28] MEDS: AZITHROMYCIN 250 MG TABLET (FP) PO SCH (09:55)
[2017-02-28] MEDS: CEFTRIAXONE 1 GM in DEXTROSE 5%-WATER - 50 ML IVPB SCH (09:55)
--- NOTE | 2017-02-28 11:45 | PN ---
Progress Note (short form) - Note Progress Note: PULMONARY States chest pain slightly improved. Some dyspnea as well. No fevers or chills. No cough. CT chest reviewed, no lung nodules present, CXR finding likely a prominent vessel. CT did show extensive LLL atelectasis vs infiltrate though. Last Vital Signs Temp Pulse Resp BP Pulse Ox 98.5 F 66 18 125/64 99 02/28/17 06:00 02/28/17 06:00 02/28/17 06:00 02/28/17 06:00 02/27/17 21:00 Gen: NAD at rest Heart: RRR Lung: bibasilar rales L>R Abd: soft, nontender Ext: no edema CBC, BMP 02/28/17 06:40 02/27/17 06:10 Active Medications Azithromycin (Zithromax -) 500 mg PO DAILY [facility] Last Admin: 02/28/17 09:55 Dose: 500 mg Heparin Sodium (Porcine) (Heparin -) 5,000 unit SQ TID [facility] Last Admin: 02/28/17 06:29 Dose: 5,000 unit Hydromorphone HCl (Dilaudid Injection -) 2 mg IVPB Q4H PRN Last Admin: 02/28/17 06:58 Dose: 2 mg Ceftriaxone Sodium 1 gm/ (Dextrose) 50 mls @ 100 mls/hr IVPB DAILY [facility] Last Admin: 02/28/17 09:55 Dose: 100 mls/hr Sodium Chloride (Normal Saline -) 1,000 mls @ 75 mls/hr IV ASDIR [facility] Last Admin: 02/28/17 02:22 Dose: Not Given Nicotine (Nicoderm Patch -) 21 mg TD DAILY [facility] Last Admin: 02/28/17 09:55 Dose: 21 mg Oxycodone HCl (Roxicodone -) 5 mg PO Q4H PRN Last Admin: 02/27/17 16:12 Dose: 5 mg A/P Sickle Cell Crisis Atelectasis vs Infiltrate Smoker - CT findings likely due to atelectasis but agree with empiric antibiotics - continue IVF - O2 - pain control - encouraged incentive spirometry - DVT prophylaxis - smoking cessation Problem List - Problems (1) Sickle cell crisis Code(s): D57.00 - HB-SS DISEASE WITH CRISIS, UNSPECIFIED (2) Lung nodule Code(s): R91.1 - SOLITARY PULMONARY NODULE
--- NOTE | 2017-02-28 15:55 | PN ---
Progress Note, Physician History of Present Illness: patient still with chest pain no new issues overall looks better - Current Medication List Current Medications: Active Medications Azithromycin (Zithromax -) 500 mg PO DAILY [facility] Last Admin: 02/28/17 09:55 Dose: 500 mg Heparin Sodium (Porcine) (Heparin -) 5,000 unit SQ TID [facility] Last Admin: 02/28/17 14:56 Dose: Not Given Hydromorphone HCl (Dilaudid Injection -) 2 mg IVPB Q4H PRN Last Admin: 02/28/17 11:42 Dose: 2 mg Ceftriaxone Sodium 1 gm/ (Dextrose) 50 mls @ 100 mls/hr IVPB DAILY [facility] Last Admin: 02/28/17 09:55 Dose: 100 mls/hr Sodium Chloride (Normal Saline -) 1,000 mls @ 75 mls/hr IV ASDIR [facility] Last Admin: 02/28/17 14:55 Dose: 75 mls/hr Nicotine (Nicoderm Patch -) 21 mg TD DAILY [facility] Last Admin: 02/28/17 09:55 Dose: 21 mg Oxycodone HCl (Roxicodone -) 5 mg PO Q4H PRN Last Admin: 02/27/17 16:12 Dose: 5 mg - Objective Vital Signs: Vital Signs Temperature 98.8 F 02/28/17 14:44 Pulse Rate 69 02/28/17 14:44 Respiratory Rate 18 02/28/17 14:44 Blood Pressure 114/56 02/28/17 14:44 O2 Sat by Pulse Oximetry (%) 99 02/27/17 21:00 Constitutional: Yes: Calm, Mild Distress Cardiovascular: Yes: Regular Rate and Rhythm Respiratory: Yes: Regular, Poor Air Entry Gastrointestinal: Yes: Normal Bowel Sounds, Soft Musculoskeletal: Yes: WNL Extremities: Yes: WNL Neurological: Yes: Alert, Oriented Psychiatric: Yes: Alert, Oriented Labs: CBC, BMP 02/28/17 06:40 02/27/17 06:10 - ....Imaging Cat Scan: Report Reviewed, Image Reviewed Assessment/Plan - Problems (1) Sickle cell crisis Code(s): D57.00 - HB-SS DISEASE WITH CRISIS, UNSPECIFIED (2) Lung nodule Code(s): R91.1 - SOLITARY PULMONARY NODULE chest pain ct scan looked at patient started on empiric abx plan continue empiric abx gibbons ee how patient does incentive shae rest as per primary team
--- NOTE | 2017-02-28 15:55 | PN ---
Progress Note (short form) - Note Progress Note: Hematology Progress Note: Patient seen and examined. Chart reviewed. Labs reviewed. Pain better. CT chest reviewed O/E: Sitting up in bed. No scleral icterus poor dental hygiene No neck LAD noted RRR Decreased breath sounds Left AAOx3 Last Vital Signs Temp Pulse Resp BP Pulse Ox 98.8 F 69 18 114/56 99 02/28/17 14:44 02/28/17 14:44 02/28/17 14:44 02/28/17 14:44 02/27/17 21:00 CBC, BMP 02/28/17 06:40 02/27/17 06:10 Current Medications Generic Name Dose Route Start Last Admin Trade Name Freq PRN Reason Stop Dose Admin Azithromycin 500 mg 02/26/17 13:30 02/28/17 09:55 Zithromax - PO 500 mg DAILY AARON Administration Heparin Sodium (Porcine) 5,000 unit 02/26/17 22:00 02/28/17 14:56 Heparin - SQ Not Given TID AARON Hydromorphone HCl 2 mg 02/26/17 13:30 02/28/17 11:42 Dilaudid Injection - IVPB 2 mg Q4H PRN Administration Ceftriaxone Sodium 1 gm/ 50 mls @ 100 mls/hr 02/26/17 13:30 02/28/17 09:55 Dextrose IVPB 100 mls/hr DAILY AARON Administration Sodium Chloride 1,000 mls @ 75 mls/hr 02/26/17 19:30 02/28/17 14:55 Normal Saline - IV 75 mls/hr ASDIR AARON Administration Nicotine 21 mg 02/26/17 22:00 02/28/17 09:55 Nicoderm Patch - TD 21 mg DAILY AARON Administration Oxycodone HCl 5 mg 02/26/17 00:13 02/27/17 16:12 Roxicodone - PO 5 mg Q4H PRN Administration Assessment/Plan: Sickle cell disease 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 VOC pain crises LLL atelectasis vs infiltrate Mediastinal LAD Plan: -pain control -Incentive spirometer encouraged -resume hydrea upon discharge, he is on 2g daily -f.u Hemoglobin electrophoresis -C/w abx, D3 today. -Mediastinal LAD , ?reactive, may need OP PET/repeat CT, smoking cessation -repeat labs CBC chem LDH retic in the am will follow discussed with PARAM Problem List - Problems (1) Sickle cell crisis Code(s): D57.00 - HB-SS DISEASE WITH CRISIS, UNSPECIFIED
--- NOTE | 2017-02-28 17:11 | PN ---
Progress Note, Physician History of Present Illness: doing well - Current Medication List Current Medications: Active Medications Azithromycin (Zithromax -) 500 mg PO DAILY [facility] Last Admin: 02/28/17 09:55 Dose: 500 mg Heparin Sodium (Porcine) (Heparin -) 5,000 unit SQ TID [facility] Last Admin: 02/28/17 14:56 Dose: Not Given Sodium Chloride (Normal Saline -) 1,000 mls @ 75 mls/hr IV ASDIR [facility] Last Admin: 02/28/17 14:55 Dose: 75 mls/hr Nicotine (Nicoderm Patch -) 21 mg TD DAILY [facility] Last Admin: 02/28/17 09:55 Dose: 21 mg Oxycodone HCl (Roxicodone -) 5 mg PO Q4H PRN Last Admin: 02/27/17 16:12 Dose: 5 mg - Objective Vital Signs: Vital Signs Temperature 98.8 F 02/28/17 14:44 Pulse Rate 69 02/28/17 14:44 Respiratory Rate 18 02/28/17 14:44 Blood Pressure 114/56 02/28/17 14:44 O2 Sat by Pulse Oximetry (%) 96 02/28/17 09:00 Constitutional: Yes: No Distress HENT: Yes: Atraumatic Neck: Yes: Supple Cardiovascular: Yes: Regular Rate and Rhythm Respiratory: Yes: CTA Bilaterally Gastrointestinal: Yes: Normal Bowel Sounds Extremities: Yes: WNL Neurological: Yes: Alert Labs: CBC, BMP 02/28/17 06:40 02/27/17 06:10 Problem List - Problems (1) Sickle cell crisis Assessment/Plan: ivf prn pain meds on iv abx to cover for infection...will taper hematology consult Code(s): D57.00 - HB-SS DISEASE WITH CRISIS, UNSPECIFIED (2) Lung nodule Assessment/Plan: hematology on board Code(s): R91.1 - SOLITARY PULMONARY NODULE Assessment/Plan ONCOLOGY TO RESUME HYDREA I DO NOT SEE THAT IN HOME MED LIST
[2017-02-28] MEDS: oxyCODONE HCL 5 MG TABLET PO PRN (21:10)
[2017-03-01] MEDS: oxyCODONE HCL 5 MG TABLET PO PRN ×2 (03:24→09:53)
[2017-03-01] MEDS: SODIUM CHLORIDE 1,000 ML IV SCH (03:26)
[2017-03-01 08:16] LABS: BASOPHIL 1.1 % (0-2.0); EOSINOPHIL 8.7 % (0-4.5); MCH 35.8 pg (25.7-33.7); MCHC 35.6 g/dl (32.0-35.9); MEAN CELL VOLUME 100.7 fl (80-96); MEAN PLT VOLUME 7.7 fl (7.5-11.1); PLATELET COUNT 427 K/MM3 (134-434); RDW 18.6 % (11.9-15.9); WHITE BLOOD COUNT 9.1 K/mm3 (4.0-10.0)
[2017-03-01 08:44] LABS: ALBUMIN 3.3 g/dl (3.4-5.0); ALK PHOS 76 U/L (45-117); ANION GAP 8 (8-16); BILIRUBIN,TOTAL 2.9 mg/dL (0.2-1.0); CALCIUM 8.4 mg/dL (8.5-10.1); CO2 25 mmol/L (21-32); CREATININE 0.5 mg/dL (0.7-1.3); GLUCOSE,RANDOM 90 mg/dL (74-106); LDH 234 U/L (87-241); SGOT/AST 15 U/L (15-37); SGPT/ALT 20 U/L (12-78); TOT PROT 6.6 g/dl (6.4-8.2)
[2017-03-01] MEDS: NICOTINE 21 MG/24 HOURS TOPICAL PATCH TD SCH (09:53)
[2017-03-01] MEDS: AZITHROMYCIN 250 MG TABLET (FP) PO SCH (09:53)
[2017-03-01 12:34] VITALS: BP 111/51; PULSE 81; TEMP 98.9
[2017-03-02 00:07] LABS: Hgb A2 3.6 % (0.7-3.1)
== END 2017-03-01 11:23 | disposition home or self-care (01) | DRG 812 ==
LOC: JER 16:52 → JERBED 20:50 → J5S 23:35
PROVIDERS: ADMIT Internal Medicine; ATTEND Internal Medicine
DX: D57.00 Hb-SS disease with crisis, unspecified (principal); J98.11 Atelectasis; F17.210 Nicotine dependence, cigarettes, uncomplicated; E66.9 Obesity, unspecified; D58.9 Hereditary hemolytic anemia, unspecified; R91.1 Solitary pulmonary nodule; R07.9 Chest pain, unspecified; Z68.21 Body mass index [BMI] 21.0-21.9, adult
CPT/HCPCS: 36415; 36430; 71020-TC; 71250-TC; 80053; 82248; 83021; 83615; 84484; 85025; 85027; 85044; 85660; 86850; 86870; 86900; 86901; 86902; 86922; 87040; 87086; 93005; 93010; 99285-25; J1644; P9038; P9058

== ENCOUNTER 2017-03-08 06:04 | Inpatient (IN) | payer OTHER ==
[2017-03-08] MEDS ORDERED: SODIUM CHLORIDE 1,000 ML IV SCH (06:30)
--- NOTE | 2017-03-08 06:39 | PDOC ---
Attending Attestation - Resident Resident Name: Mavis Peterson - ED Attending Attestation I have performed the following: I have examined & evaluated the patient, The case was reviewed & discussed with the resident, I agree w/resident's findings & plan, Exceptions are as noted - HPI HPI: 03/08/17 06:42 history of sickle disease complains of pain. Pt was admitted to hospital for similar complaints, Denies fever. States he has been compliant with is medications - Physicial Exam PE: 03/08/17 06:38 *Physical Exam General Appearance: Yes: Appropriately Dressed. No: Apparent Distress, Intoxicated HEENT: positive: EOMI, HANSEL, Normal ENT Inspection, Normal Voice, TMs Normal, Pharynx Normal. negative: Pale Conjunctivae, Photophobia, Scleral Icterus (R), Scleral Icterus (L) Neck: positive: Trachea midline, Normal Thyroid, Supple. negative: Tender, Rigid, Carotid bruit, Stridor, Lymphadenopathy (R), Lymphadenopathy (L), Thyromegaly Respiratory/Chest: positive: Lungs Clear, Normal Breath Sounds. negative: Chest Tender, Respiratory Distress, Accessory Muscle Use, Labored Respiration, RES, Crackles, Rales, Rhonchi, Stridor, Wheezing, Dullness Cardiovascular: positive: Regular Rhythm, Regular Rate, S1, S2. negative: Edema , JVD, Murmur, Bradycardia, Tachycardia Vascular Pulses: Dorsalis-Pedis (R): 2+, Doralis-Pedis (L): 2+ Gastrointestinal/Abdominal: positive: Normal Bowel Sounds, Flat, Soft. negative : Tender, Organomegaly, Pulsatile Mass, Increased Bowel Sounds, Decreased BS, Distended, Guarding, Rebound, Hernia, Hepatomegaly, Spleenomegaly Lymphatic: negative: Adenopathy, Tenderness Musculoskeletal: positive: Normal Inspection. negative: CVA Tenderness, Decreased Range of Motion Extremity: positive: Normal Capillary Refill, Normal Inspection, Normal Range of Motion, Pelvis Stable. negative: Tender, Pedal Edema, Swelling, Erythema Integumentary: positive: Normal Color, Dry, Warm. negative: Cyanotic, Erythema , Jaundice, Rash Neurologic: positive: online marketing strategist II-XII NML intact, Fully Oriented, Alert, Normal Mood/ Affect, Motor Strength 5/5. negative: EOM Palsy, Facial Droop, Sensory Deficit - Medical Decision Making 03/12/17 19:32 Pt was admitted for pain control
--- NOTE | 2017-03-08 06:39 | PDOC ---
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 He denies any obvious trigger but has been sleeping under his air conditioner although he has been doing that for a few weeks now. Of note he was admitted 10 days ago for a sickle cell episode to our hospitalists. He denies any fevers, chills, cough, chest pain, nausea, vomiting, diarrhea, or other sick symptoms, He has never had acute chest syndrome and has never required exchange transfusion. He has had at least 2 RBC transfusions in the past 5-6 years. He gets his flu vaccination yearly. He is takes hydroxyruea 2 G daily, MS contin ER 15 G QID, and 15 G MScontin PRN. He follows the hematology clinic at [facility] in [place] and recieves his primary care there as well. Denies drug or EtOH usage. 03/08/17 06:37 Past History - Past Medical History Allergies/Adverse Reactions: Allergies Allergy/AdvReac Type Severity Reaction Status Date / Time No Known Allergies Allergy Verified 03/08/17 06:17 Home Medications: Ambulatory Orders Hydroxyurea [Hydrea] 2,000 mg PO DAILY 03/01/17 Anemia: Yes (Sickle cell) - Psycho/Social/Smoking Cessation Hx Anxiety: No Suicidal Ideation: No Smoking History: Current every day smoker Have you smoked in the past 12 months: No Number of Cigarettes Smoked Daily: 10 Information on smoking cessation initiated: No Hx Alcohol Use: No Drug/Substance Use Hx: No Substance Use Type: None Review of Systems - Review of Systems Constitutional: No: Chills, Fever HEENTM: No: Blurred Vision, Recent change in vision Respiratory: No: Cough, Shortness of Breath, SOB with Exertion Cardiac (ROS): No: Chest Pain, Edema ABD/GI: No: Diarrhea, Nausea, Vomiting : No: Burning, Hematuria Musculoskeletal: Yes: Joint Pain. No: Back Pain Integumentary: No: Erythema, Lesions *Physical Exam - Vital Signs Last Vital Signs Temp Pulse Resp BP Pulse Ox 98.6 F 71 18 108/47 100 03/08/17 06:17 03/08/17 06:17 03/08/17 06:17 03/08/17 06:17 03/08/17 06:17 - Physical Exam General Appearance: Yes: Nourished, Appropriately Dressed, Apparent Distress, Mild Distress HEENT: positive: EOMI (Mild right eye ptosis), HANSEL, Normal Voice. negative: Normal ENT Inspection (Poor dentition), Photophobia, Nasal Congestion Neck: positive: Trachea midline, Normal Thyroid, Supple. negative: Tender, Rigid Respiratory/Chest: positive: Lungs Clear, Normal Breath Sounds. negative: Chest Tender, Respiratory Distress, Accessory Muscle Use Cardiovascular: positive: Regular Rhythm, Regular Rate, S1, S2. negative: Edema , Murmur Gastrointestinal/Abdominal: positive: Normal Bowel Sounds, Flat, Soft. negative : Tender, Organomegaly Musculoskeletal: positive: Other (Tenderness to palpation at knees bilaterally. No swelling, no erythema, no warmth.). negative: Normal Inspection Integumentary: positive: Normal Color, Dry, Warm Neurologic: positive: Fully Oriented, Alert, Normal Mood/Affect ED Treatment Course - RADIOLOGY Radiology Studies Ordered: Category Date Time Status CHEST PA & LAT [RAD] Stat Radiology 03/08/17 06:25 Ordered Medical Decision Making - Medical Decision Making 31 year old very pleasant male presenting with likely sickle cell crisis given his inability to control his knee pain on his oral home medications. He takes hydroxy urea at home 2 G daily but still is having crises. Will get CBC, CMP, LDH, Haptoglobin, reticulocyte count, CXR, start maintenance fluids at 120/hr. Patient signed out to Dr. Rodriguez in stable condition at 7:00 AM. 03/08/17 06:52 03/08/17 07:01 *DC/Admit/Observation/Transfer Diagnosis at time of Disposition: Sickle cell crisis
[2017-03-08] MEDS ORDERED: HYDROmorphone HCL CARPU-JECT 2 MG/1 ML DISP.SYRIN IVPUSH ONE ×2 (06:40→12:52)
[2017-03-08] MEDS ORDERED: HYDROmorphone HCL CARPU-JECT 2 MG/1 ML DISP.SYRIN ONE (06:42)
[2017-03-08 07:03] LABS: MCH 36.7 pg (25.7-33.7); MCHC 34.5 g/dl (32.0-35.9); MEAN CELL VOLUME 106.4 fl (80-96); MEAN PLT VOLUME 7.6 fl (7.5-11.1); PLATELET COUNT 558 K/MM3 (134-434); RDW 17.8 % (11.9-15.9)
[2017-03-08 07:11] LABS: WHITE BLOOD COUNT 13.4 K/mm3 (4.0-10.0)
--- NOTE | 2017-03-08 07:20 | PDOC ---
*Physical Exam - Vital Signs Last Vital Signs Temp Pulse Resp BP Pulse Ox 98.6 F 71 18 108/47 100 03/08/17 06:17 03/08/17 06:17 03/08/17 06:17 03/08/17 06:17 03/08/17 06:17 ED Treatment Course - LABORATORY CBC & Chemistry Diagram: 03/09/17 10:40 03/09/17 06:00 - ADDITIONAL ORDERS Additional order review: 03/08/17 06:45 RBC 2.17 L MCV 106.4 H MCHC 34.5 RDW 17.8 H MPV 7.6 Neutrophils % Y Lymphocytes % Y - Medications Given in the ED: ED Medications Discontinued Medications Generic Name Dose Route Start Last Admin Trade Name Sherry PRN Reason Stop Dose Admin Hydromorphone HCl 2 mg 03/08/17 06:40 03/08/17 06:51 Dilaudid Injection - IVPUSH 03/08/17 06:41 2 mg ONCE ONE Administration Medical Decision Making - Medical Decision Making 03/08/17 07:12 Pt signed out to me by Dr. Rodriguez. 31 year old very pleasant male presenting with likely sickle cell crisis given his inability to control his knee pain on his oral home medications. He takes hydroxy urea at home 2 G daily but still is having crises. CBC: hgb of 8, wbc of 13.4 CMP: LDH: 365 Haptoglobin: pending reticulocyte count: 13.7 CXR: b/l lower lobe markings started maintenance fluids at 120/hr given 2 of dilaudid and then 1 more of dilauded and IV toradol 15mg Pt states that his pain is now 8/10, and he wants to be admitted because he doesn't think he can tolerate the pain with his home medications. Pt admitted for observation. 03/10/17 13:36 *DC/Admit/Observation/Transfer Diagnosis at time of Disposition: Sickle cell pain crisis - Discharge Dispostion Condition at time of disposition: Stable Admit: Yes Decision to Admit order Date/Time: 03/08/17 10:29 - Attestations Physician Attestion: 03/08/17 10:30
[2017-03-08 07:24] LABS: ALBUMIN 3.9 g/dl (3.4-5.0); ALK PHOS 82 U/L (45-117); ANION GAP 5 (8-16); BILIRUBIN,TOTAL 4.7 mg/dL (0.2-1.0); CALCIUM 8.9 mg/dL (8.5-10.1); CO2 28 mmol/L (21-32); CREATININE 0.7 mg/dL (0.7-1.3); GLUCOSE,RANDOM 99 mg/dL (74-106); LDH 365 U/L (87-241); SGOT/AST 22 U/L (15-37); SGPT/ALT 22 U/L (12-78); TOT PROT 7.7 g/dl (6.4-8.2)
[2017-03-08 07:50] LABS: PLATELET ESTIMATE INCREASED (NORMAL)
[2017-03-08 07:51] LABS: ANISOCYTOSIS 1+; BASOPHIL 0.5 % (0-2.0); EOSINOPHIL 1.3 % (0-4.5); HYPOCHROMIA 1+; MACROCYTOSIS 1+; NEUTROPHILS 72.5 % (42.8-82.8)
[2017-03-08] MEDS ORDERED: KETOROLAC TROMETHAMINE 15 MG/ML VIAL IVPUSH ONE (08:19)
[2017-03-08] MEDS ORDERED: HYDROmorphone HCL CARPU-JECT 1 MG/1 ML DISP.SYRIN IVPUSH ONE (08:20)
[2017-03-08] MEDS ORDERED: HYDROmorphone HCL CARPU-JECT 1 MG/1 ML DISP.SYRIN ONE (08:25)
[2017-03-08] MEDS ORDERED: KETOROLAC TROMETHAMINE 15 MG/ML VIAL ONE (08:26)
[2017-03-08] MEDS ORDERED: DOCUSATE SODIUM 100 MG CAPSULE (FP) PO PRN (10:44)
[2017-03-08] MEDS ORDERED: ONDANSETRON 4 MG/2 ML VIAL IVPB PRN (10:44)
[2017-03-08] MEDS: SODIUM CHLORIDE 1,000 ML IV SCH ×3 (10:54→20:36)
[2017-03-08] MEDS ORDERED: SODIUM CHLORIDE 1,000 ML IV ONE (11:15)
[2017-03-08 11:36] LABS: URINE APPEARANCE CLEAR; URINE BILIRUBIN NEGATIVE (NEGATIVE); URINE BLOOD NEGATIVE (NEGATIVE); URINE COLOR AMBER; URINE GLUCOSE (UA) NEGATIVE (NEGATIVE); URINE KETONE NEGATIVE (NEGATIVE); URINE LEUK ESTERASE NEGATIVE (NEGATIVE); URINE NITRITE NEGATIVE (NEGATIVE); URINE PROTEIN NEGATIVE (NEGATIVE); URINE UROBILINOGEN 4.0 E.U/dl mg/dL (0.2-1.0)
--- NOTE | 2017-03-08 12:09 | HP ---
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 He denies any obvious trigger but has been sleeping under his air conditioner although he has been doing that for a few weeks now. Of note he was admitted 10 days ago for a sickle cell episode to service admission. He denies any fevers, chills, cough, chest pain, nausea, vomiting, diarrhea, or other sick symptoms, He has never had acute chest syndrome and has never required exchange transfusion. He has had at least 2 RBC transfusions in the past 5-6 years. He gets his flu vaccination yearly. He is takes hydroxyruea 2 G daily, MS contin ER 15 G QID, and 15 G MScontin PRN. He follows the hematology clinic at [facility] in [place] and receives his primary care there as well. Denies drug or EtOH usage. PCP: Does not have a PCP but goes to a Hemotology clinic in [place] under [facility], recently moved to [place] and is not set up in system here. ER course was notable for: (1) IVF (2) pain management Recent Travel: none PAST MEDICAL HISTORY: sickel cell SS PAST SURGICAL HISTORY: denies Social History: Smoking: current every day smoker Alcohol: denies use Drugs: denies use Family History: Allergies No Known Allergies Allergy (Verified 03/08/17 06:17) HOME MEDICATIONS: Also noted to be taking MS contin ER and IR for pain management Medication Instructions Recorded Hydroxyurea [Hydrea] 2,000 mg PO DAILY 03/01/17 REVIEW OF SYSTEMS CONSTITUTIONAL: Absent: fever, chills, diaphoresis, + generalized weakness, malaise, loss of appetite, weight change HEENT: Absent: rhinorrhea, nasal congestion, throat pain, throat swelling, difficulty swallowing, mouth swelling, ear pain, eye pain, visual changes CARDIOVASCULAR: Absent: chest pain, syncope, palpitations, irregular heart rate, lightheadedness , peripheral edema RESPIRATORY: Absent: cough, shortness of breath, dyspnea with exertion, orthopnea, wheezing, stridor, hemoptysis GASTROINTESTINAL: Absent: abdominal pain, abdominal distension, nausea, vomiting, diarrhea, constipation, melena, hematochezia GENITOURINARY: Absent: dysuria, frequency, urgency, hesitancy, hematuria, flank pain, genital pain MUSCULOSKELETAL: Absent: +myalgia, +arthralgia, +joint swelling especially to bilateral knees neg for back pain and neck pain, neg swelling or ulcerations SKIN: Absent: rash, itching, pallor HEMATOLOGIC/IMMUNOLOGIC: Absent: easy bleeding, easy bruising, lymphadenopathy, frequent infections ENDOCRINE: Absent: unexplained weight gain, unexplained weight loss, heat intolerance, cold intolerance NEUROLOGIC: Absent: headache, focal weakness or paresthesias, dizziness, unsteady gait, seizure, mental status changes, bladder or bowel incontinence PSYCHIATRIC: Absent: anxiety, depression, suicidal or homicidal ideation, hallucinations. PHYSICAL EXAMINATION Vital Signs - 24 hr 03/08/17 11:00 Pulse Rate [ 59 L Apical] Respiratory 16 Rate Blood Pressure 109/58 [Right Arm] O2 Sat by Pulse 95 Oximetry (%) GENERAL: Awake, alert, and fully oriented, in no acute distress. HEAD: Normal with no signs of trauma. NECK: Normal range of motion, supple without lymphadenopathy, JVD, or masses. LUNGS: Breath sounds equal, clear to auscultation bilaterally. No wheezes, and no crackles. No accessory muscle use. HEART: Regular rate and rhythm, normal S1 and S2 without murmur, rub or gallop. ABDOMEN: Soft, nontender, not distended, normoactive bowel sounds, no guarding, no rebound, no masses. No hepatomegaly or splenomegaly. MUSCULOSKELETAL: Normal range of motion at all joints but c/o bilateral knee pain on range of motion. able to stand and ambulate but painful. No bony deformities or tenderness. No CVA tenderness. UPPER EXTREMITIES: 2+ pulses, warm, well-perfused. No cyanosis. No clubbing. No peripheral edema. LOWER EXTREMITIES: 2+ pulses, warm, well-perfused. No calf tenderness. No peripheral edema. + bilateral knee pain NEUROLOGICAL: Cranial nerves II-XII intact. Normal speech. Normal gait. PSYCHIATRIC: Cooperative. Good eye contact. Appropriate mood and affect. SKIN: Warm, dry, normal turgor, no rashes or lesions noted, normal capillary refill. ASSESSMENT/PLAN: This 31 yr old male with h/o sickle cell in active crisis with c/o pain in bilateral knees without swelling or ulceration but retic count elevated and appears dehydrated. FEN -bolus, IVF hydration -regular diet -strict shift I and O -trend daily labs and replete as needed Pain Management -PRN toradol and oxycodone Knee pain -duplex, r/o bilateral dvt, will follow Admission observation -medical surgical bed -upon discharge, set up with closer PCP for follow up -admission orders placed, EKG, UA, duplex, labs, pain management Sickle Cell SS crisis -hematology consult -started back on hydroxurea 2 gm daily, folic acid 1 mg -trend retic count Problem List - Problem (1) Sickle cell crisis Code(s): D57.00 - HB-SS DISEASE WITH CRISIS, UNSPECIFIED (2) Pain Code(s): R52 - PAIN, UNSPECIFIED Visit type - Emergency Visit Emergency Visit: Yes ED Registration Date: 03/08/17 Care time: The patient presented to the Emergency Department on the above date and was hospitalized for further evaluation of their emergent condition. - New Patient This patient is new to me today: Yes Date on this admission: 03/08/17 - Critical Care Critical Care patient: No
[2017-03-08] MEDS: FOLIC ACID 1 MG TABLET (FP) PO SCH (13:40)
[2017-03-08] MEDS: HYDROXYUREA 500 MG CAPSULE PO SCH (13:40)
[2017-03-08] MEDS: HYDROmorphone HCL CARPU-JECT 1 MG/1 ML DISP.SYRIN IVPB PRN ×2 (13:45→21:45)
[2017-03-08 13:52] VITALS: BMI 21.1
[2017-03-08] MEDS: oxyCODONE HCL 5 MG TABLET PO PRN ×2 (16:11→22:35)
--- NOTE | 2017-03-08 16:14 | EKG ---
Test Reason : Blood Pressure : / mmHG Vent. Rate : 062 BPM Atrial Rate : 062 BPM P-R Int : 216 ms QRS Dur : 104 ms QT Int : 442 ms P-R-T Axes : 011 -17 002 degrees QTc Int : 448 ms SINUS RHYTHM WITH 1ST DEGREE A-V BLOCK WITH FUSION COMPLEXES AND PREMATURE ATRIAL COMPLEXES WITH ABERRANT CONDUCTION VOLTAGE CRITERIA FOR LEFT VENTRICULAR HYPERTROPHY ST ELEVATION, CONSIDER EARLY REPOLARIZATION, PERICARDITIS, OR INJURY POSSIBLE [id number] ABNORMAL ECG Confirmed by MD CHRISTA, GINA ([id number]) on 03/08/2017 4:14:05 PM Referred By: Confirmed By:GINA GOODWIN MD
--- NOTE | 2017-03-08 17:38 | CONSULT ---
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 He denies any obvious trigger but has been sleeping under his air conditioner although he has been doing that for a few weeks now. Of note he was admitted 10 days ago for a sickle cell episode . He denies any fevers, chills, cough, chest pain,SOB, nausea, vomiting, diarrhea, or other sick symptoms, He has never had acute chest syndrome and has never required exchange transfusion. He has had at least 2 RBC transfusions in the past 5-6 years. He gets his flu vaccination yearly. He is takes hydroxyruea 2 G daily, MS contin ER 15 G QID, and 15 G MScontin PRN. He follows the hematology clinic at [facility] in [place] and recieves his primary care there as well. Denies drug or EtOH usage. Allergies/Adverse Reactions: Allergies Allergy/AdvReac Type Severity Reaction Status Date / Time No Known Allergies Allergy Verified 03/08/17 06:17 Home Medications: Ambulatory Orders Hydroxyurea [Hydrea] 2,000 mg PO DAILY 03/01/17 - Psycho/Social/Smoking Cessation Hx Smoking History: Current every day smoker - Vital Signs Last Vital Signs Temp Pulse Resp BP Pulse Ox 98.6 F 71 18 108/47 100 03/08/17 06:17 03/08/17 06:17 03/08/17 06:17 03/08/17 06:17 03/08/17 06:17 Cor: RSR, No murmurs, No gallops Lungs: Clear to P&A Abd: Soft, Normal bowel sounds, No organomegaly Ext:No significant edema Abnormal Lab Results 03/08/17 03/08/17 06:45 06:45 WBC 13.4 H D RBC 2.17 L Hgb 8.0 L D Hct 23.1 L D MCV 106.4 H MCH 36.7 H RDW 17.8 H Plt Count 558 H D Monocytes % 12.9 H Retic Count 13.79 H* D Anion Gap 5 L Total Bilirubin 4.7 H D LD Total 365 H D A/P 31 y/o patient with sickle cell disease, comes in with acute pain crises,low grade fevers, hemolysis pain control iv fluids dvt prophy incentive spirometry folic acid continue hydrea
[2017-03-08] MEDS ORDERED: HEPARIN NA (PORCINE) 5,000 UNITS/ML 1ML VIAL SQ SCH (18:00)
[2017-03-08] MEDS: KETOROLAC TROMETHAMINE 15 MG/ML VIAL IVPUSH PRN (18:22)
[2017-03-09] MEDS: KETOROLAC TROMETHAMINE 15 MG/ML VIAL IVPUSH PRN (00:13)
[2017-03-09] MEDS: SODIUM CHLORIDE 1,000 ML IV SCH ×2 (03:41→11:17)
[2017-03-09] MEDS: HYDROmorphone HCL CARPU-JECT 1 MG/1 ML DISP.SYRIN IVPB PRN ×3 (04:16→20:12)
[2017-03-09] MEDS ORDERED: HEPARIN NA (PORCINE) 5,000 UNITS/ML 1ML VIAL SQ SCH (06:00)
[2017-03-09] MEDS ORDERED: KETOROLAC TROMETHAMINE 30 MG/1 ML VIAL IVPUSH PRN (06:17)
[2017-03-09 07:06] LABS: INR 1.6 (0.82-1.09); PROTHROMBIN TIME (PATIENT) 17.8 SEC (9.98-11.88)
[2017-03-09 07:08] LABS: BASOPHIL 1.1 % (0-2.0); EOSINOPHIL 0.7 % (0-4.5); MCHC 34.9 g/dl (32.0-35.9); MEAN PLT VOLUME 7.8 fl (7.5-11.1); NEUTROPHILS 65.4 % (42.8-82.8); PLATELET COUNT 383 K/MM3 (134-434); RDW 17.1 % (11.9-15.9); WHITE BLOOD COUNT 12.4 K/mm3 (4.0-10.0)
[2017-03-09 07:09] LABS: ACTIVATED PTT 33.6 SECONDS (26.9-34.4)
[2017-03-09 07:21] LABS: ALBUMIN 3.2 g/dl (3.4-5.0); ANION GAP 8 (8-16); CO2 24 mmol/L (21-32); CREATININE 0.6 mg/dL (0.7-1.3); GLUCOSE,RANDOM 86 mg/dL (74-106); MAGNESIUM 1.8 mg/dL (1.8-2.4); PHOSPHOROUS 3.4 mg/dL (2.5-4.9); SGOT/AST 26 U/L (15-37); SGPT/ALT 24 U/L (12-78)
[2017-03-09 07:23] LABS: ALK PHOS 68 U/L (45-117); BILIRUBIN,TOTAL 4.2 mg/dL (0.2-1.0); TOT PROT 6.5 g/dl (6.4-8.2)
[2017-03-09 09:13] LABS: BILIRUBIN,DIRECT 0.5 mg/dL (0.0-0.2)
--- NOTE | 2017-03-09 09:46 | PN ---
Physical Exam: SUBJECTIVE: Patient seen and examined Patient states left leg pain 6/10 and right leg 3/10 and overall pain has improved. Requesting toradol more frequently as it has caused significant relief. OBJECTIVE: Vital Signs Period Temp Pulse Resp BP Sys/[place] Pulse Ox Last 24 Hr 98.8 F-101.0 F 59-72 16-20 105-127/51-88 95-98 GENERAL: The patient is awake, alert, and fully oriented, in no acute distress. HEAD: Normal with no signs of trauma. EYES: PERRL, extraocular movements intact, left eye sclera slightly icteric, conjunctiva clear. No ptosis. ENT: Ears normal, nares patent, oropharynx clear without exudates, moist mucous membranes. NECK: Trachea midline, full range of motion, supple. LUNGS: Breath sounds equal, clear to auscultation bilaterally, no wheezes, no crackles, no accessory muscle use. HEART: Regular rate and rhythm, S1, S2 without murmur, rub or gallop. ABDOMEN: Soft, nontender, nondistended, normoactive bowel sounds, no guarding, no rebound, no hepatosplenomegaly, no masses. EXTREMITIES: 2+ pulses, warm, well-perfused, no edema. NEUROLOGICAL: Cranial nerves II through XII grossly intact. Normal speech, gait not observed. PSYCH: Normal mood, normal affect. SKIN: Warm, dry, normal turgor, no rashes or lesions noted Laboratory Results - last 24 hr 03/08/17 03/09/17 03/09/17 11:20 06:00 06:00 WBC 12.4 H Corrected WBC (auto) RBC 1.68 L D Hgb 6.4 L* D Hct 18.3 L D MCV 109.0 H MCH 38.0 H MCHC 34.9 RDW 17.1 H Plt Count 383 D MPV 7.8 Neutrophils % 65.4 Lymphocytes % 18.4 D Monocytes % 14.4 H Eosinophils % 0.7 Basophils % 1.1 Platelet Estimate Platelet Comment RBC Morphology ESR Retic Count INR 1.60 H PTT (Actin FS) 33.6 Sodium Potassium Chloride Carbon Dioxide Anion Gap BUN Creatinine Creat Clearance w eGFR Random Glucose Calcium Phosphorus Magnesium Total Bilirubin Direct Bilirubin AST ALT Alkaline Phosphatase Total Protein Albumin Lipase Urine Color Tamia Urine Appearance Clear Urine pH 6.0 Ur Specific [place] 1.015 Urine Protein Negative Urine Glucose (UA) Negative Urine Ketones Negative Urine Blood Negative Urine Nitrite Negative Urine Bilirubin Negative Urine Urobilinogen 4.0 e.u/dl Ur Leukocyte Esterase Negative Blood Type Antibody Screen 03/09/17 03/09/17 03/09/17 06:00 06:00 06:00 WBC Cancelled Corrected WBC (auto) Cancelled RBC Cancelled Hgb Cancelled Hct Cancelled MCV Cancelled MCH Cancelled MCHC Cancelled RDW Cancelled Plt Count Cancelled MPV Cancelled Neutrophils % Cancelled Lymphocytes % Cancelled Monocytes % Cancelled Eosinophils % Cancelled Basophils % Cancelled Platelet Estimate Cancelled Platelet Comment Cancelled RBC Morphology Cancelled ESR Retic Count INR PTT (Actin FS) Sodium 138 Potassium 4.1 Chloride 106 Carbon Dioxide 24 Anion Gap 8 BUN 13 D Creatinine 0.6 L Creat Clearance w eGFR > 60 Random Glucose 86 Calcium 8.0 L Phosphorus 3.4 Magnesium 1.8 Total Bilirubin 4.2 H Direct Bilirubin 0.5 H D AST 26 ALT 24 Alkaline Phosphatase 68 Total Protein 6.5 Albumin 3.2 L Lipase 50 L Urine Color Urine Appearance Urine pH Ur Specific [place] Urine Protein Urine Glucose (UA) Urine Ketones Urine Blood Urine Nitrite Urine Bilirubin Urine Urobilinogen Ur Leukocyte Esterase Blood Type O POSITIVE Antibody Screen Positive H 03/09/17 03/09/17 08:00 08:00 WBC Corrected WBC (auto) RBC Hgb Hct MCV MCH MCHC RDW Plt Count MPV Neutrophils % Lymphocytes % Monocytes % Eosinophils % Basophils % Platelet Estimate Platelet Comment RBC Morphology ESR 25 H Retic Count 14.06 H* INR PTT (Actin FS) Sodium Potassium Chloride Carbon Dioxide Anion Gap BUN Creatinine Creat Clearance w eGFR Random Glucose Calcium Phosphorus Magnesium Total Bilirubin Direct Bilirubin AST ALT Alkaline Phosphatase Total Protein Albumin Lipase Urine Color Urine Appearance Urine pH Ur Specific [place] Urine Protein Urine Glucose (UA) Urine Ketones Urine Blood Urine Nitrite Urine Bilirubin Urine Urobilinogen Ur Leukocyte Esterase Blood Type Antibody Screen Active Medications Generic Name Dose Route Start Last Admin Trade Name Freq PRN Reason Stop Dose Admin Acetaminophen 650 mg 03/09/17 07:34 Tylenol - PO Q6H PRN FEVER OR PAIN Docusate Sodium 100 mg 03/08/17 10:44 Colace - PO BID PRN CONSTIPATION Folic Acid 1 mg 03/08/17 11:15 03/08/17 13:40 Folic Acid - PO 1 mg DAILY AARON Administration Heparin Sodium (Porcine) 5,000 unit 03/09/17 06:00 03/09/17 06:28 Heparin - SQ 5,000 unit TID AARON Administration Hydromorphone HCl 1 mg 03/08/17 23:00 03/09/17 04:16 Dilaudid Injection - IVPB 1 mg Q4H PRN Administration PAIN Hydroxyurea 2,000 mg 03/08/17 11:30 03/08/17 13:40 Hydrea - PO 2,000 mg DAILY AARON Administration Sodium Chloride 1,000 mls @ 150 mls/hr 03/08/17 10:45 03/09/17 03:41 Normal Saline - IV 150 mls/hr ASDIR AARON Administration Ketorolac Tromethamine 30 mg 03/09/17 06:17 03/09/17 06:22 Toradol Injection - IVPUSH 03/13/17 10:43 30 mg Q6H PRN Administration PAIN Ondansetron HCl 4 mg 03/08/17 10:44 Zofran Injection IVPB Q6H PRN NAUSEA ASSESSMENT/PLAN: Sickle cell crisis Dilaudid changed to q6h prn toradol 30mg ivpb q4h prn and protonix 40mg ivpb daily for GI prophylaxis repeat CBC pending as last hgb 6.4 if .7 then transfuse 1 U prbc. Repeat Hgb 6.4 1 Unit PRBC ordered Cont IVF NS @150cc/h Continue Hydroxyurea 2000mg daily Hematology consult appreciated Tobacco dependence nicotine patch 7mg daily cessation counseling given DVT patient refuses SCD due to leg pain and will d/c. heparin not given d/t anemia ambulation and frequent movement encouraged Problem List - Problems (1) Sickle cell crisis Code(s): D57.00 - HB-SS DISEASE WITH CRISIS, UNSPECIFIED (2) Anemia Code(s): D64.9 - ANEMIA, UNSPECIFIED Visit type - Emergency Visit Emergency Visit: Yes ED Registration Date: 03/08/17 Care time: The patient presented to the Emergency Department on the above date and was hospitalized for further evaluation of their emergent condition. - New Patient This patient is new to me today: Yes Date on this admission: 03/10/17 - Critical Care Critical Care patient: No - Discharge Referral Referred to [facility] No
[2017-03-09] MEDS: FOLIC ACID 1 MG TABLET (FP) PO SCH (09:55)
[2017-03-09] MEDS: HYDROXYUREA 500 MG CAPSULE PO SCH (09:55)
[2017-03-09] MEDS ORDERED: PT OWN MED DRAWER 7, Y5N ONE (09:59)
[2017-03-09 10:52] LABS: MCH 36.1 pg (25.7-33.7); MCHC 33.8 g/dl (32.0-35.9); MEAN CELL VOLUME 106.6 fl (80-96); MEAN PLT VOLUME 7.2 fl (7.5-11.1); PLATELET COUNT 383 K/MM3 (134-434); RDW 17.2 % (11.9-15.9); WHITE BLOOD COUNT 11.4 K/mm3 (4.0-10.0)
[2017-03-09] MEDS: NICOTINE 7 MG/24 HOURS TOPICAL PATCH TD SCH (11:17)
[2017-03-09] MEDS: KETOROLAC TROMETHAMINE 30 MG/1 ML VIAL IVPUSH PRN ×3 (11:17→21:35)
--- NOTE | 2017-03-09 12:25 | PN ---
Progress Note (short form) - Note Progress Note: HEMATOLOGY Progress Note: Patient seen and examined No complaints Vital Signs Period Temp Pulse Resp BP Sys/Dumont Pulse Ox Last 24 Hr 99.6 F-101.0 F 68-72 18-20 105-127/51-88 98 AFVSS HEENT: YANIRA, EOM Intact Cor: RSR, No murmurs, No gallops Lungs: R. basal crackles Abd: Soft, Normal bowel sounds, No organomegaly Skin: No rashes, Integument intact Current Medications Generic Name Dose Route Start Last Admin Trade Name Freq PRN Reason Stop Dose Admin Acetaminophen 650 mg 03/09/17 07:34 Tylenol - PO Q6H PRN FEVER OR PAIN Docusate Sodium 100 mg 03/08/17 10:44 Colace - PO BID PRN CONSTIPATION Folic Acid 1 mg 03/08/17 11:15 03/09/17 09:55 Folic Acid - PO 1 mg DAILY AARON Administration Hydromorphone HCl 1 mg 03/09/17 10:46 Dilaudid Injection - IVPB Q6H PRN PAIN Hydroxyurea 2,000 mg 03/08/17 11:30 03/09/17 09:55 Hydrea - PO 2,000 mg DAILY AARON Administration Sodium Chloride 1,000 mls @ 150 mls/hr 03/08/17 10:45 03/09/17 11:17 Normal Saline - IV 150 mls/hr ASDIR AARON Administration Pantoprazole Sodium 40 mg/ 100 mls @ 200 mls/hr 03/10/17 10:00 Sodium Chloride IVPB DAILY AARON Ketorolac Tromethamine 30 mg 03/09/17 10:50 03/09/17 11:17 Toradol Injection - IVPUSH 03/14/17 06:16 30 mg Q4H PRN Administration PAIN Nicotine 7 mg 03/09/17 11:00 03/09/17 11:17 Nicoderm Patch - TD 7 mg DAILY AARON Administration Ondansetron HCl 4 mg 03/08/17 10:44 Zofran Injection IVPB Q6H PRN NAUSEA Labs: reviewed CBC, BMP 03/09/17 10:40 03/09/17 06:00 A/P 31 y/o patient with sickle cell disease, comes in with acute pain crises,low grade fevers, hemolysis pain control iv fluids dvt prophy incentive spirometry folic acid continue hydrea ID consult for fever Transfuse 1 unit of blood and another if Hb is less than 7.5 He has already been ordered for 1 unit
[2017-03-09 13:23] LABS: NUCLEATED RED BLOOD CELL 2 % (0-0); PLATELET COMMENT2 NO CLUMPING NOTED; PLATELET COMMENT3 NO CLOTTING DETECTED; PLATELET ESTIMATE ADEQUATE (NORMAL); SMUDGE CELLS FEW; TOTAL CELLS COUNTED 100
[2017-03-09] MEDS ORDERED: oxyCODONE HCL 5 MG TABLET PO ONE (16:42)
[2017-03-09] MEDS: ACETAMINOPHEN 325 MG TABLET (FP) PO PRN (18:21)
[2017-03-09] MEDS: HYDROmorphone HCL CARPU-JECT 2 MG/1 ML DISP.SYRIN IVPB PRN (23:11)
[2017-03-10] MEDS: ACETAMINOPHEN 325 MG TABLET (FP) PO PRN (00:25)
[2017-03-10] MEDS ORDERED: oxyCODONE HCL 5 MG TABLET PO ONE (00:39)
[2017-03-10] MEDS: KETOROLAC TROMETHAMINE 30 MG/1 ML VIAL IVPUSH PRN ×6 (01:39→21:31)
[2017-03-10] MEDS: HYDROmorphone HCL CARPU-JECT 2 MG/1 ML DISP.SYRIN IVPB PRN ×4 (05:00→21:40)
[2017-03-10] MEDS: HYDROmorphone HCL CARPU-JECT 1 MG/1 ML DISP.SYRIN IVPB PRN (08:45)
[2017-03-10] MEDS ORDERED: PT OWN MED DRAWER 7, Y5N ONE (09:28)
[2017-03-10] MEDS ORDERED: SODIUM CHLORIDE 100 ML IVPB ONE (09:28)
[2017-03-10] MEDS ORDERED: PANTOPRAZOLE SODIUM 40 MG VIAL ONE (09:28)
[2017-03-10] MEDS: NICOTINE 7 MG/24 HOURS TOPICAL PATCH TD SCH (09:29)
[2017-03-10] MEDS: FOLIC ACID 1 MG TABLET (FP) PO SCH (09:30)
[2017-03-10] MEDS: HYDROXYUREA 500 MG CAPSULE PO SCH (09:30)
[2017-03-10] MEDS: PANTOPRAZOLE SODIUM 40 MG in SODIUM CHLORIDE 100 ML IVPB SCH (09:30)
[2017-03-10] MEDS ORDERED: HYDROmorphone HCL CARPU-JECT 1 MG/1 ML DISP.SYRIN IVPB ONE (10:38)
[2017-03-10] MEDS ORDERED: HYDROmorphone HCL CARPU-JECT 2 MG/1 ML DISP.SYRIN IVPB PRN (10:43)
[2017-03-10] MEDS ORDERED: FENTANYL PATCH WASTE MC PRN (10:43)
[2017-03-10] MEDS ORDERED: fentaNYL 12mcg/hr PATCH.TD72 TD SCH (10:45)
--- NOTE | 2017-03-10 10:57 | PN ---
Physical Exam: SUBJECTIVE: Patient seen and examined c/o b/l extremity pain which increased after getting transfused and unable to sleep overnight.Denies chest pain, sob, coughing, fever or chills. Denies nausea or vomiting. OBJECTIVE: Vital Signs Period Temp Pulse Resp BP Sys/Dumont Pulse Ox Last 24 Hr 98.9 F-101.6 F 66-78 16-22 114-133/53-70 96-97 GENERAL: The patient is awake, alert, and fully oriented, in moderate acute distress. HEAD: Normal with no signs of trauma. EYES: PERRL, extraocular movements intact, sclera slightly icteric, conjunctiva clear. No ptosis. ENT: Ears normal, nares patent, oropharynx clear without exudates, moist mucous membranes. NECK: Trachea midline, full range of motion, supple. LUNGS: Breath sounds equal, clear to auscultation bilaterally, no wheezes, no crackles, no accessory muscle use. HEART: Regular rate and rhythm, S1, S2 without murmur, rub or gallop. ABDOMEN: Soft, nontender, nondistended, normoactive bowel sounds, no guarding, no rebound, no hepatosplenomegaly, no masses. EXTREMITIES: 2+ pulses, warm, well-perfused, no edema. NEUROLOGICAL: Cranial nerves II through XII grossly intact. Normal speech, gait not observed. PSYCH: Normal mood, normal affect. SKIN: Warm, dry, normal turgor, no rashes or lesions noted Laboratory Results - last 24 hr 03/09/17 03/09/17 03/09/17 06:00 06:00 06:00 WBC 12.4 H RBC 1.68 L D Hgb 6.4 L* D Hct 18.3 L D MCV 109.0 H MCH 38.0 H MCHC 34.9 RDW 17.1 H Plt Count 383 D MPV 7.8 Total Counted Neutrophils % 65.4 Neutrophils % (Manual) Band Neuts % (Manual) Lymphocytes % 18.4 D Lymphocytes % (Manual) Monocytes % 14.4 H Monocytes % (Manual) Eosinophils % 0.7 Eosinophils % (Manual) Basophils % 1.1 Nucleated RBC % Smudge Cells Platelet Estimate Platelet Comment INR 1.60 H PTT (Actin FS) 33.6 Sodium 138 Potassium 4.1 Chloride 106 Carbon Dioxide 24 Anion Gap 8 BUN 13 D Creatinine 0.6 L Creat Clearance w eGFR > 60 Random Glucose 86 Calcium 8.0 L Phosphorus 3.4 Magnesium 1.8 Total Bilirubin 4.2 H Direct Bilirubin 0.5 H D AST 26 ALT 24 Alkaline Phosphatase 68 Total Protein 6.5 Albumin 3.2 L Lipase 50 L Blood Type Antibody Screen Antibody Identification Crossmatch 03/09/17 03/09/17 03/09/17 06:00 06:00 10:40 WBC 11.4 H RBC 1.79 L Hgb 6.4 L* Hct 19.0 L MCV 106.6 H MCH 36.1 H MCHC 33.8 RDW 17.2 H Plt Count 383 MPV 7.2 L Total Counted 100 Neutrophils % 65.0 Neutrophils % (Manual) 65 Band Neuts % (Manual) 2 Lymphocytes % 22.0 Lymphocytes % (Manual) 22 Monocytes % 8.0 Monocytes % (Manual) 8 Eosinophils % 3.0 D Eosinophils % (Manual) 3 Basophils % Nucleated RBC % 2 H Smudge Cells Few Platelet Estimate Adequate Platelet Comment No clumping noted INR PTT (Actin FS) Sodium Potassium Chloride Carbon Dioxide Anion Gap BUN Creatinine Creat Clearance w eGFR Random Glucose Calcium Phosphorus Magnesium Total Bilirubin Cancelled Direct Bilirubin Cancelled AST Cancelled ALT Cancelled Alkaline Phosphatase Cancelled Total Protein Cancelled Albumin Cancelled Lipase Blood Type O POSITIVE Antibody Screen Positive H Antibody Identification TNP Crossmatch See Detail Active Medications Generic Name Dose Route Start Last Admin Trade Name Joseq PRN Reason Stop Dose Admin Acetaminophen 650 mg 03/09/17 07:34 03/10/17 00:25 Tylenol - PO 650 mg Q6H PRN Administration FEVER OR PAIN Docusate Sodium 100 mg 03/08/17 10:44 Colace - PO BID PRN CONSTIPATION Folic Acid 1 mg 03/08/17 11:15 03/10/17 09:30 Folic Acid - PO 1 mg DAILY AARON Administration Hydromorphone HCl 1 mg 03/09/17 10:46 03/10/17 08:45 Dilaudid Injection - IVPB 1 mg Q6H PRN Administration PAIN Hydromorphone HCl 2 mg 03/09/17 23:05 03/10/17 05:00 Dilaudid Injection - IVPB 2 mg Q6H PRN Administration PAIN Hydroxyurea 2,000 mg 03/08/17 11:30 03/10/17 09:30 Hydrea - PO 2,000 mg DAILY AARON Administration Sodium Chloride 1,000 mls @ 150 mls/hr 03/08/17 10:45 03/09/17 11:17 Normal Saline - IV 150 mls/hr ASDIR AARON Administration Pantoprazole Sodium 40 mg/ 100 mls @ 200 mls/hr 03/10/17 10:00 03/10/17 09:30 Sodium Chloride IVPB 200 mls/hr DAILY AARON Administration Ketorolac Tromethamine 30 mg 03/09/17 10:50 03/10/17 09:29 Toradol Injection - IVPUSH 03/14/17 06:16 30 mg Q4H PRN Administration PAIN Nicotine 7 mg 03/09/17 11:00 03/10/17 09:29 Nicoderm Patch - TD 7 mg DAILY AARON Administration Ondansetron HCl 4 mg 03/08/17 10:44 Zofran Injection IVPB Q6H PRN NAUSEA ASSESSMENT/PLAN: Sickle Cell crisis Unlikely transfusion reaction, 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 ID consult not warranted at this time will monitor patient and re-evaluate if needed. Increase diluadid to 2mg q4h and add fentanyl 12mcg patch stat Once stable will get CBC and Conchita test. Hematology consult appreciated Problem List - Problems (1) Sickle cell crisis Code(s): D57.00 - HB-SS DISEASE WITH CRISIS, UNSPECIFIED (2) Anemia Code(s): D64.9 - ANEMIA, UNSPECIFIED Visit type - Emergency Visit Emergency Visit: Yes ED Registration Date: 03/08/17 Care time: The patient presented to the Emergency Department on the above date and was hospitalized for further evaluation of their emergent condition. - New Patient This patient is new to me today: Yes Date on this admission: 03/10/17 - Critical Care Critical Care patient: No - Discharge Referral Referred to [facility] No
--- NOTE | 2017-03-10 11:36 | PN ---
Progress Note (short form) - Note Progress Note: HEMATOLOGY Progress Note: Patient seen and examined Has more pain today than yesterday ?worsening of sickle crisis vs transfusion reaction Vital Signs Period Temp Pulse Resp BP Sys/Dumont Pulse Ox Last 24 Hr 97.7 F-101.6 F 66-78 16-22 114-133/53-70 96-97 AFVSS HEENT: YANIRA, EOM Intact Cor: RSR, No murmurs, No gallops Abd: Soft, Normal bowel sounds, No organomegaly Skin: No rashes, Integument intact Active Medications Generic Name Dose Route Start Last Admin Trade Name Freq PRN Reason Stop Dose Admin Acetaminophen 650 mg 03/09/17 07:34 03/10/17 00:25 Tylenol - PO 650 mg Q6H PRN Administration FEVER OR PAIN Docusate Sodium 100 mg 03/08/17 10:44 Colace - PO BID PRN CONSTIPATION Fentanyl 1 patch 03/10/17 10:45 03/10/17 11:05 Duragesic 12mcg Patch - TD 03/11/17 10:44 1 patch Q72H AARON Administration Folic Acid 1 mg 03/08/17 11:15 03/10/17 09:30 Folic Acid - PO 1 mg DAILY AARON Administration Hydromorphone HCl 2 mg 03/10/17 10:43 Dilaudid Injection - IVPB Q4H PRN PAIN Hydroxyurea 2,000 mg 03/08/17 11:30 03/10/17 09:30 Hydrea - PO 2,000 mg DAILY AARON Administration Pantoprazole Sodium 40 mg/ 100 mls @ 200 mls/hr 03/10/17 10:00 03/10/17 09:30 Sodium Chloride IVPB 200 mls/hr DAILY AARON Administration Sodium Chloride 1,000 mls @ 200 mls/hr 03/10/17 11:26 Normal Saline - IV ASDIR AARON Ketorolac Tromethamine 30 mg 03/09/17 10:50 03/10/17 09:29 Toradol Injection - IVPUSH 03/14/17 06:16 30 mg Q4H PRN Administration PAIN Miscellaneous 1 each 03/10/17 10:43 Duragesic Patch Waste MC PRN PRN PAIN Nicotine 7 mg 03/09/17 11:00 03/10/17 09:29 Nicoderm Patch - TD 7 mg DAILY AARON Administration Ondansetron HCl 4 mg 03/08/17 10:44 Zofran Injection IVPB Q6H PRN NAUSEA CBC, BMP 03/09/17 10:40 03/09/17 06:00 A/P 31 y/o patient with sickle cell disease, comes in with acute pain crises, hemolysis,pain control a/w Hb from today hold off on transfusions for now unless hypoxic will check direct commbs again and reticulocytes continue hydrea/ folate/ pain meds
[2017-03-10] MEDS ORDERED: HYDROmorphone HCL CARPU-JECT 2 MG/1 ML DISP.SYRIN IVPB ONE (12:18)
[2017-03-10] MEDS: SODIUM CHLORIDE 1,000 ML IV SCH ×3 (12:31→17:48)
[2017-03-10 18:24] LABS: MCH 36.5 pg (25.7-33.7); MCHC 33.9 g/dl (32.0-35.9); MEAN CELL VOLUME 107.6 fl (80-96); PLATELET COUNT 277 K/MM3 (134-434); RDW 17.1 % (11.9-15.9); WHITE BLOOD COUNT 13.1 K/mm3 (4.0-10.0)
[2017-03-10 18:51] LABS: ALBUMIN 3.5 g/dl (3.4-5.0); ALK PHOS 76 U/L (45-117); ANION GAP 7 (8-16); BILIRUBIN,TOTAL 7.9 mg/dL (0.2-1.0); CALCIUM 8.4 mg/dL (8.5-10.1); CO2 23 mmol/L (21-32); CREATININE 0.6 mg/dL (0.7-1.3); GLUCOSE,RANDOM 119 mg/dL (74-106); SGOT/AST 44 U/L (15-37); SGPT/ALT 27 U/L (12-78); TOT PROT 7.2 g/dl (6.4-8.2)
[2017-03-10 19:07] LABS: PLATELET ESTIMATE ADEQUATE (NORMAL); TOTAL CELLS COUNTED 100
[2017-03-10 19:08] LABS: MYELOCYTE 1 % (0-2)
[2017-03-10 19:27] LABS: MCH 37.3 pg (25.7-33.7); MCHC 34.6 g/dl (32.0-35.9); MEAN CELL VOLUME 107.7 fl (80-96); MEAN PLT VOLUME 7.7 fl (7.5-11.1); PLATELET COUNT 261 K/MM3 (134-434); RDW 16.3 % (11.9-15.9); WHITE BLOOD COUNT 11.3 K/mm3 (4.0-10.0)
[2017-03-10 19:42] LABS: ALBUMIN 3.4 g/dl (3.4-5.0); ALK PHOS 69 U/L (45-117); ANION GAP 8 (8-16); BILIRUBIN,TOTAL 7.6 mg/dL (0.2-1.0); CALCIUM 8.6 mg/dL (8.5-10.1); CO2 23 mmol/L (21-32); CREATININE 0.5 mg/dL (0.7-1.3); GLUCOSE,RANDOM 121 mg/dL (74-106); SGOT/AST 43 U/L (15-37); SGPT/ALT 28 U/L (12-78); TOT PROT 6.9 g/dl (6.4-8.2)
[2017-03-10 19:52] LABS: ALBUMIN 3.4 g/dl (3.4-5.0); BILIRUBIN,TOTAL 7.8 mg/dL (0.2-1.0)
[2017-03-10 19:58] LABS: PLATELET ESTIMATE ADEQUATE (NORMAL)
[2017-03-10 19:59] LABS: TOTAL CELLS COUNTED 100
[2017-03-10 20:00] LABS: NUCLEATED RED BLOOD CELL 6 % (0-0)
[2017-03-10 20:02] LABS: MACROCYTOSIS 2+
[2017-03-10 20:24] LABS: MYELOCYTE 1 % (0-2)
[2017-03-11] MEDS ORDERED: KETOROLAC TROMETHAMINE 30 MG/1 ML VIAL IVPUSH PRN ×2 (00:23→10:32)
--- NOTE | 2017-03-11 00:30 | HOSP ---
Subjective - Review of Symptoms Events since last encounter: Hgb 4.8 @8pm Subjective: Pt reports pain not well controlled but is otherwise ok. Denies SOB, lightheadedness when standing. Pt reports that pain is not relieved and recurs before next dose due. Musculoskeletal: Yes: Joint Pain Physical Examination Vital Signs: Vital Signs Temperature 98.5 F 03/10/17 21:00 Pulse Rate 77 03/10/17 21:00 Respiratory Rate 22 03/10/17 21:00 Blood Pressure 128/71 03/10/17 21:00 O2 Sat by Pulse Oximetry (%) 97 03/10/17 21:00 Constitutional: Yes: Well Nourished Eyes: Yes: Other (conjunctiva pale) Cardiovascular: Yes: Regular Rate and Rhythm Respiratory: Yes: CTA Bilaterally Gastrointestinal: Yes: Normal Bowel Sounds, Soft Labs: CBC, BMP 03/10/17 19:10 03/10/17 18:05 Hospitalist Encounter Assessment: Anemia - DW Dr. Brandt at 8pm. Will defer any transfusion at this time unless patient hemodynamically unstable as there is concern for transfusion reaction with previous transfusion. - hematology to follow in AM Pain crisis - DC ketorolac 30mg Q4H, change to Q6H - increase dilaudid to 3mg Q3H - eval efficacy
[2017-03-11] MEDS: HYDROmorphone HCL CARPU-JECT 2 MG/1 ML DISP.SYRIN IVPB PRN ×6 (00:39→19:55)
[2017-03-11] MEDS: ACETAMINOPHEN 325 MG TABLET (FP) PO PRN (06:37)
[2017-03-11 08:03] LABS: MCHC 34.3 g/dl (32.0-35.9); MEAN CELL VOLUME 107.9 fl (80-96); MEAN PLT VOLUME 7.7 fl (7.5-11.1); PLATELET COUNT 247 K/MM3 (134-434); RDW 16.8 % (11.9-15.9)
[2017-03-11 08:11] LABS: ANION GAP 7 (8-16); CALCIUM 8.2 mg/dL (8.5-10.1); CO2 23 mmol/L (21-32); CREATININE 0.6 mg/dL (0.7-1.3); GLUCOSE,RANDOM 110 mg/dL (74-106)
[2017-03-11] MEDS ORDERED: PANTOPRAZOLE SODIUM 40 MG VIAL ONE (08:59)
[2017-03-11] MEDS ORDERED: SODIUM CHLORIDE 100 ML IVPB ONE (08:59)
[2017-03-11] MEDS: PANTOPRAZOLE SODIUM 40 MG in SODIUM CHLORIDE 100 ML IVPB SCH (09:04)
[2017-03-11] MEDS: NICOTINE 7 MG/24 HOURS TOPICAL PATCH TD SCH (09:05)
[2017-03-11] MEDS: HYDROXYUREA 500 MG CAPSULE PO SCH (09:05)
[2017-03-11] MEDS: FOLIC ACID 1 MG TABLET (FP) PO SCH (09:05)
--- NOTE | 2017-03-11 09:11 | PN ---
Progress Note (short form) - Note Progress Note: Subjective: The patient was seen and examined at the bedside, Tmax 101.1 Chest x-ray with infiltrates Called and spoke to Dr. Wheeler re: abx, acute chest syndrome Spoke to Dr. Wooten, Hgb 4.1, 2u PRBC ordered. Will check Conchita between each unit. Vitamin B12, Procrit, solumedrol ordered Transfer to ICU Current Medications Generic Name Dose Route Start Last Admin Trade Name Freq PRN Reason Stop Dose Admin Acetaminophen 650 mg 03/09/17 07:34 03/11/17 06:37 Tylenol - PO 650 mg Q6H PRN Administration FEVER OR PAIN Docusate Sodium 100 mg 03/08/17 10:44 Colace - PO BID PRN CONSTIPATION Fentanyl 1 patch 03/10/17 10:45 03/10/17 11:05 Duragesic 12mcg Patch - TD 03/11/17 10:44 1 patch Q72H AARON Administration Folic Acid 1 mg 03/08/17 11:15 03/11/17 09:05 Folic Acid - PO 1 mg DAILY AARON Administration Hydromorphone HCl 3 mg 03/11/17 00:23 03/11/17 06:41 Dilaudid Injection - IVPB 3 mg Q3H PRN Administration PAIN Hydroxyurea 2,000 mg 03/08/17 11:30 03/11/17 09:05 Hydrea - PO 2,000 mg DAILY AARON Administration Pantoprazole Sodium 40 mg/ 100 mls @ 200 mls/hr 03/10/17 10:00 03/11/17 09:04 Sodium Chloride IVPB 200 mls/hr DAILY AARON Administration Sodium Chloride 1,000 mls @ 200 mls/hr 03/10/17 11:26 03/10/17 17:48 Normal Saline - IV 200 mls/hr ASDIR AARON Administration Ketorolac Tromethamine 30 mg 03/11/17 00:23 03/11/17 03:34 Toradol Injection - IVPUSH 03/16/17 00:22 30 mg Q6H PRN Administration PAIN Miscellaneous 1 each 03/10/17 10:43 Duragesic Patch Waste MC PRN PRN PAIN Nicotine 7 mg 03/09/17 11:00 03/11/17 09:05 Nicoderm Patch - TD 7 mg DAILY AARON Administration Ondansetron HCl 4 mg 03/08/17 10:44 Zofran Injection IVPB Q6H PRN NAUSEA Objective: Vital Signs Period Temp Pulse Resp BP Sys/Dumont Pulse Ox Last 24 Hr 97.7 F-101.1 F 77-101 18-22 128-155/71-83 97 Physical Exam: General: Thin, jaundice HEENT: Sclera icteric Lungs: CTA bilaterally. Retractions noted Heart: RRR, S1S2 Abd: Distended. Hepatosplenomegaly? Normoactive bowel sounds Ext: Warm, well-perfused CBCD WBC 19.1 K/mm3 (4.0-10.0) H D 03/11/17 07:20 RBC 1.10 M/mm3 (4.00-5.60) L 03/11/17 07:20 Hgb 4.1 GM/dL (11.7-16.9) L* D 03/11/17 07:20 Hct 11.9 % (35.4-49) L 03/11/17 07:20 MCV 107.9 fl (80-96) H 03/11/17 07:20 MCHC 34.3 g/dl (32.0-35.9) 03/11/17 07:20 RDW 16.8 % (11.9-15.9) H 03/11/17 07:20 Plt Count 247 K/MM3 (134-434) 03/11/17 07:20 MPV 7.7 fl (7.5-11.1) 03/11/17 07:20 CMP Sodium 139 mmol/L (136-145) 03/11/17 07:20 Potassium 4.1 mmol/L (3.5-5.1) 03/11/17 07:20 Chloride 109 mmol/L (98-107) H 03/11/17 07:20 Carbon Dioxide 23 mmol/L (21-32) 03/11/17 07:20 Anion Gap 7 (8-16) L 03/11/17 07:20 BUN 17 mg/dL (7-18) 03/11/17 07:20 Creatinine 0.6 mg/dL (0.7-1.3) L 03/11/17 07:20 Creat Clearance w eGFR > 60 (>60) 03/10/17 18:05 Random Glucose 110 mg/dL (74-106) H 03/11/17 07:20 Calcium 8.2 mg/dL (8.5-10.1) L 03/11/17 07:20 Total Bilirubin 7.8 mg/dL (0.2-1.0) H 03/10/17 18:05 AST 42 U/L (15-37) H 03/10/17 18:05 ALT 28 U/L (12-78) 03/10/17 18:05 Alkaline Phosphatase 75 U/L (45-117) 03/10/17 18:05 Total Protein 7.0 g/dl (6.4-8.2) 03/10/17 18:05 Albumin 3.4 g/dl (3.4-5.0) 03/10/17 18:05 Microbiology 03/08/17 18:15 Blood - Peripheral Venous Blood Culture - Preliminary NO GROWTH OBTAINED AFTER 48 HOURS, INCUBATION TO CONTINUE FOR 3 DAYS. 03/08/17 13:16 Blood - Peripheral Venous Blood Culture - Preliminary NO GROWTH OBTAINED AFTER 48 HOURS, INCUBATION TO CONTINUE FOR 3 DAYS. 03/08/17 11:20 Urine - Urine Clean Catch Urine Culture - Final NO GROWTH OBTAINED Assessment: This is a 31 year old male with PMHx of sickle cell disease who presented to the ED with sickle cell crisis Plan: 1) Sickle cell crisis with acute chest syndrome - Transfer to ICU - Pain management - Discussed with Dr. Wooten, patient has 9 antibodies and is not a candidate for plasma exchange at this time - 2u PRBC ordered with Direct Conchita to be drawn after each unit - Will give Solumedrol 125mg IVPB q6h - Procrit 40,000u sq today followed by 20,000u sq daily - Folic acid - Vitamin B12 - Continue Hydroxyurea - Continue IV fluids - May need IVIG 400mg/kg x 5 days---30grams daily for 5 days - Discussed with Dr. Vela, chest x-ray today with infiltrates, will start antibiotics - Appreciate hematology consult - F/u ID consult 2) Hepatosplenomegaly on exam: - Eval for splenic sequestration - F/u abdominal ultrasound - F/u hepatic function panel today 3) F/E/N: - Monitor electrolytes - Regular diet 4) Prophylaxis: - Hold all chemical DVT prophylaxis 2/2 severe anemia - Patient refusing SCDs 5) Dispo: - Requires continued ICU care CODE STATUS: FULL CODE Visit type - Emergency Visit Emergency Visit: Yes ED Registration Date: 03/10/17 Care time: The patient presented to the Emergency Department on the above date and was hospitalized for further evaluation of their emergent condition. - New Patient This patient is new to me today: Yes Date on this admission: 03/11/17 - Critical Care Critical Care patient: Yes Total Critical Care Time (in minutes): 45 Critical Care Statement: The care of this patient involved high complexity decision making to prevent further life threatening deterioration of the patient 's condition and/or to evaluate & treat vital organ system(s) failure or risk of failure.
[2017-03-11 09:16] LABS: TOTAL CELLS COUNTED 100; WHITE BLOOD COUNT 19.1 K/mm3 (4.0-10.0)
[2017-03-11 09:17] LABS: NUCLEATED RED BLOOD CELL 24 % (0-0)
[2017-03-11] MEDS ORDERED: methylPREDNISolone NA SUCC 125 MG/2 ML VIAL IVPB SCH (09:45)
[2017-03-11] MEDS ORDERED: CYANOCOBALAMIN (VITAMIN B-12) 1000 MCG/1 ML VIAL IM SCH (10:00)
--- NOTE | 2017-03-11 10:10 | HP ---
Admitting History and Physical - Admission Chief Complaint: Lower back pain History of Present Illness: 31 year old male past medical history sickle cell anemia with previous blood transfusions presented to the emergency department 3 days ago for pain in his lower back and legs bilaterally. He states that he received a blood transfusion on 03/09, which precipitated his lower back pain on the same day. He reports that he has had many previous sickle cell crises, including 2 at this hospital in the past year (last of which he was discharged 10 days ago for acute pain crisis), which involved both of his lower legs. Reports having previous admission with chest pain. Currently he complains only of pain in his lower back , rating it as a dull pain at a 10/10 in severity near his lumbar region. On initial admission, patient was febrile to a Tmax of 101. Patient currently denies chest pain, shortness of breath, nausea, vomiting, fever, chills, abdominal pain. Patient reports a normal bowel movement yesterday and regular urinary habits. Denies HIV. States he lives with his fiance and two children. Denies any recent travel. Patient smokes 1/2 pack a day for 16 years and drinks socially. Infectious disease consulted to evaluate for possible pneumonia Microbiology 03/08/17 11:20 Urine - Urine Clean Catch Urine Culture - Final NO GROWTH OBTAINED 03/08/17 18:15 Blood - Peripheral Venous Blood Culture - Preliminary NO GROWTH OBTAINED AFTER 48 HOURS, INCUBATION TO CONTINUE FOR 3 DAYS. 03/08/17 13:16 Blood - Peripheral Venous Blood Culture - Preliminary NO GROWTH OBTAINED AFTER 48 HOURS, INCUBATION TO CONTINUE FOR 3 DAYS. History Source: Patient Limitations to Obtaining History: No Limitations - Past Medical History Heme/Onc: Yes: Sickle Cell Disease - Smoking History Smoking history: Current every day smoker (1/2 pack a day for 16 years) Have you smoked in the past 12 months: No Aproximately how many cigarettes per day: 10 - Alcohol/Substance Use Hx Alcohol Use: No (Socially) Home Medications - Allergies Allergies/Adverse Reactions: Allergies Allergy/AdvReac Type Severity Reaction Status Date / Time No Known Allergies Allergy Verified 03/08/17 06:17 - Home Medications Home Medications: Ambulatory Orders Hydroxyurea [Hydrea] 2,000 mg PO DAILY 03/01/17 Folic Acid 1 mg PO 03/08/17 Morphine *Immediate Release* 15 mg PO QID PRN 03/08/17 Morphine Sulfate ER 15 mg PO 03/08/17 Nicotine Patch [Nicoderm Patch -] 1 patch TD PRN PRN 03/08/17 Family Disease History - Family Disease History Family Disease History: CA: Grandparent (gastric) Review of Systems - Review of Systems Constitutional: reports: No Symptoms. denies: Chills, Fever Eyes: reports: Other (Yellow eyes) HENT: reports: No Symptoms Neck: reports: No Symptoms Cardiovascular: reports: No Symptoms. denies: Chest Pain, Palpitations, Shortness of Breath Respiratory: reports: No Symptoms. denies: Cough, SOB, Wheezing Gastrointestinal: reports: No Symptoms. denies: Abdominal Pain, Constipation, Diarrhea, Nausea, Vomiting Genitourinary: reports: No Symptoms. denies: Dysuria, Flank Pain, Frequency, Hematuria Musculoskeletal: reports: Back Pain (Lower back pain 10/10), Extremity Pain (b/ l lower leg pain anteriorly) Integumentary: reports: No Symptoms Neurological: reports: No Symptoms Endocrine: reports: No Symptoms Hematology/Lymphatic: reports: No Symptoms Pain Intensity: 10 Physical Examination Vital Signs: Vital Signs Temperature 99.8 F H 03/11/17 08:37 Pulse Rate 101 H 03/11/17 08:37 Respiratory Rate 18 03/11/17 08:37 Blood Pressure 137/83 03/11/17 08:37 O2 Sat by Pulse Oximetry (%) 99 03/11/17 08:38 Findings/Remarks: Scleral icterus noted bilaterally Constitutional: Yes: Well Nourished, No Distress, Calm Eyes: Yes: Conjunctiva Clear, EOM Intact, Sclera Icterus HENT: Yes: Atraumatic, Normocephalic Neck: Yes: Supple, Trachea Midline Cardiovascular: Yes: Regular Rate and Rhythm. No: Gallop, Murmur, Rub Respiratory: Yes: Regular, CTA Bilaterally. No: Cough, Rales, Rhonchi, SOB, Stridor, Wheezes Gastrointestinal: Yes: Normal Bowel Sounds, Soft. No: Hernia, Tenderness, Vomiting Renal/: No: Hematuria Musculoskeletal: Yes: Back Pain (Dull 10/10 pain described in the lumbar region without tenderness to palpation) Extremities: Yes: WNL Edema: No Peripheral Pulses WNL: Yes Integumentary: Yes: WNL Neurological: Yes: Alert, Oriented, Cran Nerves II-XII Intact ...Motor Strength: WNL Psychiatric: Yes: Alert, Oriented Labs: CBC, BMP 03/11/17 07:20 03/11/17 07:20 Imaging - Results Chest X-ray: Report Reviewed, Other (Congestive changes and possible bibasilar infiltrates, large heart, unfolded aorta, prominent maxim. Bones and soft tissues intact.) Problem List - Problems (1) Anemia Code(s): D64.9 - ANEMIA, UNSPECIFIED (2) Fever Code(s): R50.9 - FEVER, UNSPECIFIED (3) Pneumonia Code(s): J18.9 - PNEUMONIA, UNSPECIFIED ORGANISM (4) Sickle cell pain crisis Code(s): D57.00 - HB-SS DISEASE WITH CRISIS, UNSPECIFIED Assessment/Plan Assessment/Plan: 31 year old male pmh sickle cell anemia w/ multiple previous acute sickle cell crises in the ICU with severe anemia s/p blood transfusion on 03/09 with acute crisis in lumbar spine, b/l lower extremities and fevers with elevated white count and pulmonary infiltrates on CXR suggestive of pneumonia. #Pneumonia -f/u blood cultures -begin ceftriaxone 2gm IV for 7 days -perform HIV test -f/u with hematology
[2017-03-11] MEDS ORDERED: SODIUM CHLORIDE 1,000 ML IV SCH ×2 (10:32→18:27)
[2017-03-11] MEDS ORDERED: ACETAMINOPHEN 325 MG TABLET (FP) PO PRN (10:32)
[2017-03-11] MEDS ORDERED: DOCUSATE SODIUM 100 MG CAPSULE (FP) PO PRN (10:32)
[2017-03-11] MEDS ORDERED: ONDANSETRON 4 MG/2 ML VIAL IVPB PRN (10:32)
[2017-03-11] MEDS ORDERED: FENTANYL PATCH WASTE MC PRN ×2 (10:32)
[2017-03-11] MEDS ORDERED: EPOETIN ALFA 40,000 UNIT/1 ML VIAL SQ ONE (11:00)
--- NOTE | 2017-03-11 11:25 | PN ---
Progress Note, Physician Chief Complaint: ID 31 year old male known SS disease who I am asked to see for fevers and possible pneumonia. He has a history of multiple painful SS crises for which he has been admitted while previously living in [place]. Currently he is followed at the [facility] hematology clinic. He was last admitted to the hospital at [facility] for painful SS crisis for which he was transfused PRBCs. Now is readmitted 10 days latter for more severe pain. During his admission now he is severely anemic jaundiced and febrile to [address] on several occasions. His recent CT of the chest showed what may have been infiltrate vs atalectasis. ? of pulmonary nodule but not seen on CT imaging. He is not couphing nor is he SOB and has no pleuritic chest pains. He has not traveled and lives in [place] with his fiance and her 2 children. He has been HIV tested years ago and denies substance abuse exposure to pets or unusual hobbies. 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 Denies other medical problems. He does smoke heavily for many years. - Current Medication List Current Medications: Active Medications Acetaminophen (Tylenol -) 650 mg PO Q6H PRN PRN Reason: FEVER OR PAIN Cyanocobalamin (Vitamin B12 Injection -) 1,000 mcg IM DAILY AARON Last Admin: 03/11/17 10:43 Dose: 1,000 mcg Docusate Sodium (Colace -) 100 mg PO BID PRN PRN Reason: CONSTIPATION Epoetin Santos (Procrit -) 20,000 unit SQ DAILY AARON Fentanyl (Duragesic 12mcg Patch -) 1 patch TD Q72H AARON Stop: 03/14/17 10:44 Folic Acid (Folic Acid -) 1 mg PO DAILY AARON Hydromorphone HCl (Dilaudid Injection -) 3 mg IVPB Q3H PRN PRN Reason: PAIN Hydroxyurea (Hydrea -) 2,000 mg PO DAILY AARON Pantoprazole Sodium (Protonix 40mg Ivpb (Pre-Docked)) 100 mls @ 200 mls/hr IVPB DAILY AARON Sodium Chloride (Normal Saline -) 1,000 mls @ 200 mls/hr IV ASDIR AARON Last Admin: 03/11/17 10:44 Dose: 200 mls/hr Ketorolac Tromethamine (Toradol Injection -) 30 mg IVPUSH Q6H PRN PRN Reason: PAIN Stop: 03/16/17 00:22 Methylprednisolone Sodium Succinate (Solu-Medrol -) 125 mg IVPB Q6H-IV AARON Last Admin: 03/11/17 10:43 Dose: 125 mg Miscellaneous (Duragesic Patch Waste) 1 each MC PRN PRN PRN Reason: PAIN Nicotine (Nicoderm Patch -) 7 mg TD DAILY AARON Ondansetron HCl (Zofran Injection) 4 mg IVPB Q6H PRN PRN Reason: NAUSEA - Objective Vital Signs: Vital Signs Temperature 99.8 F H 03/11/17 08:37 Pulse Rate 101 H 03/11/17 08:37 Respiratory Rate 18 03/11/17 08:37 Blood Pressure 137/83 03/11/17 08:37 O2 Sat by Pulse Oximetry (%) 99 03/11/17 08:38 Constitutional: Yes: Other (Not acutely ill) Cardiovascular: Yes: Tachycardia, Murmur, S1, S2, Other (soft flow murumur apex) Respiratory: Yes: WNL, Regular, CTA Bilaterally, Other (Bibasislar rales) Gastrointestinal: Yes: WNL, Normal Bowel Sounds, Soft. No: Splenomegaly, Tenderness, Tenderness, Rebound Extremities: No: Cold, Cool, Cyanosis Edema: No Labs: CBC, BMP 03/11/17 07:20 03/11/17 07:20 INR, PTT INR 1.60 (0.82-1.09) H 03/09/17 06:00 Problem List - Problems (1) Anemia Code(s): D64.9 - ANEMIA, UNSPECIFIED (2) Sickle cell pain crisis Code(s): D57.00 - HB-SS DISEASE WITH CRISIS, UNSPECIFIED (3) Pneumonia Code(s): J18.9 - PNEUMONIA, UNSPECIFIED ORGANISM (4) Fever Code(s): R50.9 - FEVER, UNSPECIFIED Assessment/Plan Microbiology 03/08/17 11:20 Urine - Urine Clean Catch Urine Culture - Final NO GROWTH OBTAINED 03/08/17 18:15 Blood - Peripheral Venous Blood Culture - Preliminary NO GROWTH OBTAINED AFTER 48 HOURS, INCUBATION TO CONTINUE FOR 3 DAYS. 03/08/17 13:16 Blood - Peripheral Venous Blood Culture - Preliminary NO GROWTH OBTAINED AFTER 48 HOURS, INCUBATION TO CONTINUE FOR 3 DAYS. Laboratory Tests 03/10/17 03/10/17 03/11/17 18:05 18:05 07:20 WBC 19.1 H D Hgb 4.1 L* D Hct 11.9 L MCV 107.9 H Plt Count 247 Neutrophils % (Manual) 89 H D Band Neuts % (Manual) 1 D Lymphocytes % (Manual) 7 L D Monocytes % (Manual) 3 L Nucleated RBC % 24 H* BUN Creatinine Total Bilirubin 7.8 H Direct Bilirubin 2.0 H D AST 42 H ALT 28 LD Total 521 H D Total Protein 7.0 Albumin 3.4 03/11/17 07:20 WBC Hgb Hct MCV Plt Count Neutrophils % (Manual) Band Neuts % (Manual) Lymphocytes % (Manual) Monocytes % (Manual) Nucleated RBC % BUN 17 Creatinine 0.6 L Total Bilirubin Direct Bilirubin AST ALT LD Total Total Protein Albumin Assessment Painful SS crisis Severe anemia secondary to hemolysis Fever with what may be bilateral pulmonary infiltrates Plan Cultures sent Ceftriaxone 2 grs daily HIV testing Hematology evaluation Summer TANNER Critical care time spent today 48 minutes including discussing case and examining patient with the housestaff Summer TANNER
[2017-03-11 11:31] LABS: ALBUMIN 3.3 g/dl (3.4-5.0); ALK PHOS 118 U/L (45-117); BILIRUBIN,DIRECT 2.3 mg/dL (0.0-0.2); SGOT/AST 85 U/L (15-37); SGPT/ALT 31 U/L (12-78); TOT PROT 6.8 g/dl (6.4-8.2)
[2017-03-11] MEDS ORDERED: CEFTRIAXONE 100 ML IVPB ONE (12:00)
[2017-03-11] MEDS ORDERED: methylPREDNISolone NA SUCC 125 MG/2 ML VIAL IVPB ONE ×2 (13:29→19:30)
--- NOTE | 2017-03-11 13:44 | PN ---
Teaching Attending Note Name of Resident: Jason Marin ATTENDING PHYSICIAN STATEMENT I saw and evaluated the patient. I reviewed the resident's note and discussed the case with the resident. I agree with the resident's findings and plan as documented. SUBJECTIVE: Pt seen and examined in the ICU. Briefly, 31yo male with sickle cell disease who was admitted with sickle cell crisis but transferred down to ICU for severe anemia, fevers and infiltrates on CXR. Currently denies chest pain, more back pain. No shortness of breath, cough. Has been febrile. OBJECTIVE: Last Vital Signs Temp Pulse Resp BP Pulse Ox 99.8 F H 101 H 18 137/83 99 03/11/17 08:37 03/11/17 08:37 03/11/17 08:37 03/11/17 08:37 03/11/17 08:38 Intake & Output 03/08/17 03/09/17 03/10/17 03/11/17 23:59 23:59 23:59 23:59 Intake Total 100 4220 5000 3120 Output Total 800 1150 900 500 Balance -700 3070 4100 2620 Weight 173 lb 8 oz Gen: pale Heart: tachycardic, regular Lung: bibasilar rales Abd: soft, nontender Ext: no edema CBC, BMP 03/11/17 07:20 03/11/17 07:20 Active Medications Acetaminophen (Tylenol -) 650 mg PO Q6H PRN PRN Reason: FEVER OR PAIN Cyanocobalamin (Vitamin B12 Injection -) 1,000 mcg IM DAILY AARON Last Admin: 03/11/17 10:43 Dose: 1,000 mcg Docusate Sodium (Colace -) 100 mg PO BID PRN PRN Reason: CONSTIPATION Epoetin Santos (Procrit -) 20,000 unit SQ DAILY AARON Fentanyl (Duragesic 12mcg Patch -) 1 patch TD Q72H AARON Stop: 03/14/17 10:44 Folic Acid (Folic Acid -) 1 mg PO DAILY AARON Hydromorphone HCl (Dilaudid Injection -) 3 mg IVPB Q3H PRN PRN Reason: PAIN Last Admin: 03/11/17 10:10 Dose: 3 mg Hydroxyurea (Hydrea -) 2,000 mg PO DAILY AARON Pantoprazole Sodium (Protonix 40mg Ivpb (Pre-Docked)) 100 mls @ 200 mls/hr IVPB DAILY [facility] Sodium Chloride (Normal Saline -) 1,000 mls @ 200 mls/hr IV ASDIR AARON Last Admin: 03/11/17 10:44 Dose: 200 mls/hr Ketorolac Tromethamine (Toradol Injection -) 30 mg IVPUSH Q6H PRN PRN Reason: PAIN Stop: 03/16/17 00:22 Methylprednisolone Sodium Succinate (Solu-Medrol -) 250 mg IVPB ONCE ONE Stop: 03/11/17 13:30 Methylprednisolone Sodium Succinate (Solu-Medrol -) 125 mg IVPB ONCE ONE Stop: 03/11/17 19:31 Miscellaneous (Duragesic Patch Waste) 1 each MC PRN PRN PRN Reason: PAIN Nicotine (Nicoderm Patch -) 7 mg TD DAILY [facility] Ondansetron HCl (Zofran Injection) 4 mg IVPB Q6H PRN PRN Reason: NAUSEA ASSESSMENT AND PLAN: Sickle Cell Crisis Severe Anemia Pneumonia vs Acute Chest Syndrome Hyperhemolysis Syndrome - agree with empiric antibiotics - f/u cultures - IV medrol - transfuse PRBC - monitor H/H - IVF - O2 - incentive spirometry - pain control - DVT prophylaxis - transfer to sickle cell center - continue ICU monitoring critical care time spent in reviewing chart, evaluating patient and formulating plan 35min
--- NOTE | 2017-03-11 13:57 | PN ---
Progress Note (short form) - Note Progress Note: Patient seen and examined c/o low back pain mild shortness of breath Last Vital Signs Temp Pulse Resp BP Pulse Ox 99.8 F H 101 H 18 137/83 99 03/11/17 08:37 03/11/17 08:37 03/11/17 08:37 03/11/17 08:37 03/11/17 08:38 Cor: RSR, No murmurs, No gallops Lungs: decreased at bases Abd: Soft, Normal bowel sounds, No organomegaly Ext:No significant edema Skin: No rashes, Integument intact Abnormal Lab Results 03/09/17 03/10/17 03/10/17 06:00 18:00 18:05 WBC 13.1 H RBC 1.35 L D Hgb 4.9 L* D Hct 14.5 L MCV 107.6 H MCH 36.5 H RDW 17.1 H Neutrophils % (Manual) Lymphocytes % (Manual) Monocytes % (Manual) Nucleated RBC % Retic Count Chloride Anion Gap 7 L Creatinine 0.6 L Random Glucose 119 H D Calcium 8.4 L Total Bilirubin 7.9 H D Direct Bilirubin AST 44 H D Alkaline Phosphatase LD Total Albumin Antibody Screen Positive H Crossmatch See Detail 03/10/17 03/10/17 03/10/17 18:05 18:05 18:05 WBC RBC Hgb Hct MCV MCH RDW Neutrophils % (Manual) Lymphocytes % (Manual) Monocytes % (Manual) Nucleated RBC % Retic Count Chloride Anion Gap Creatinine 0.5 L Random Glucose 121 H Calcium Total Bilirubin 7.6 H 7.8 H Direct Bilirubin 2.0 H D AST 43 H 42 H Alkaline Phosphatase LD Total 521 H D Albumin Antibody Screen Crossmatch 03/10/17 03/11/17 03/11/17 19:10 07:20 07:20 WBC 11.3 H 19.1 H D RBC 1.29 L 1.10 L Hgb 4.8 L* 4.1 L* D Hct 13.9 L 11.9 L MCV 107.7 H 107.9 H MCH 37.3 H 37.0 H RDW 16.3 H 16.8 H Neutrophils % (Manual) 89 H D Lymphocytes % (Manual) 7 L D Monocytes % (Manual) 11 H D 3 L Nucleated RBC % 6 H 24 H* Retic Count Chloride 109 H Anion Gap 7 L Creatinine 0.6 L Random Glucose 110 H Calcium 8.2 L Total Bilirubin 7.0 H Direct Bilirubin 2.3 H AST 85 H D Alkaline Phosphatase 118 H D LD Total Albumin 3.3 L Antibody Screen Crossmatch 03/11/17 07:30 WBC RBC Hgb Hct MCV MCH RDW Neutrophils % (Manual) Lymphocytes % (Manual) Monocytes % (Manual) Nucleated RBC % Retic Count 11.45 H* D Chloride Anion Gap Creatinine Random Glucose Calcium Total Bilirubin Direct Bilirubin AST Alkaline Phosphatase LD Total Albumin Antibody Screen Crossmatch Active Medications Generic Name Dose Route Start Last Admin Trade Name Freq PRN Reason Stop Dose Admin Acetaminophen 650 mg 03/11/17 10:32 Tylenol - PO Q6H PRN FEVER OR PAIN Cyanocobalamin 1,000 mcg 03/11/17 10:00 03/11/17 10:43 Vitamin B12 Injection - IM 1,000 mcg DAILY AARON Administration Docusate Sodium 100 mg 03/11/17 10:32 Colace - PO BID PRN CONSTIPATION Epoetin Santos 20,000 unit 03/12/17 10:00 Procrit - SQ DAILY AARON Fentanyl 1 patch 03/13/17 10:45 Duragesic 12mcg Patch - TD 03/14/17 10:44 Q72H AARON Folic Acid 1 mg 03/12/17 10:00 Folic Acid - PO DAILY AARON Hydromorphone HCl 3 mg 03/11/17 10:32 03/11/17 15:20 Dilaudid Injection - IVPB 3 mg Q3H PRN Administration PAIN Hydroxyurea 2,000 mg 03/12/17 10:00 Hydrea - PO DAILY AARON Pantoprazole Sodium 100 mls @ 200 mls/hr 03/12/17 10:00 Protonix 40mg Ivpb (Pre-Docked) IVPB DAILY AARON Sodium Chloride 1,000 mls @ 200 mls/hr 03/11/17 10:32 03/11/17 10:44 Normal Saline - IV 200 mls/hr ASDIR AARON Administration Ketorolac Tromethamine 30 mg 03/11/17 10:32 Toradol Injection - IVPUSH 03/16/17 00:22 Q6H PRN PAIN Methylprednisolone Sodium Succinate 125 mg 03/11/17 19:30 Solu-Medrol - IVPB 03/11/17 19:31 ONCE ONE Miscellaneous 1 each 03/11/17 10:32 Duragesic Patch Waste MC PRN PRN PAIN Nicotine 7 mg 03/12/17 10:00 Nicoderm Patch - TD DAILY AARON Ondansetron HCl 4 mg 03/11/17 10:32 Zofran Injection IVPB Q6H PRN NAUSEA A/P 31 y/o patient with sickle cell crisis, pain crisis, hemolysis dveloped worsening pain, noted to have multiple antibodies, hypoxia, CXR showing some infiltrates. Concern for hyperhemolytic syndrome + acute chest syndrome Hgb 4.1 transfusing PRBCs as Hgb critical and infiltrates on CXR Started medrol 500mg daily may need IVIG 400mg/kg x 5 days---30grams daily for 5 days IV hydration procrit/B12/folate Very critical condition with multiple antibodies, auto and allo, hyperhemolysis and acute chest discussed with ID team---on rocephin discussed in detail with director of [facility] and with Dr. Mckinney at [facility] sickle center discussed with hospitalist team
--- NOTE | 2017-03-11 14:56 | HP ---
CHIEF COMPLAINT:Sickle cell crisis HISTORY OF PRESENT ILLNESS: 31M with sickle cell disease admitted for sickle cell crisis, admitted to ICU for anemia, fever and infiltrates on CXR. Currently no complain of chest pain, sob or cough HOME MEDICATIONS: Home Medications Medication Instructions Recorded Hydroxyurea [Hydrea] 2,000 mg PO DAILY 03/01/17 Folic Acid 1 mg PO 03/08/17 Morphine *Immediate Release* 15 mg PO QID PRN 03/08/17 Morphine Sulfate ER 15 mg PO 03/08/17 Nicotine Patch [Nicoderm Patch -] 1 patch TD PRN PRN 03/08/17 REVIEW OF SYSTEMS CONSTITUTIONAL: Absent: fever, chills, diaphoresis, generalized weakness, malaise, loss of appetite, weight change HEENT: Absent: rhinorrhea, nasal congestion, throat pain, throat swelling, difficulty swallowing, mouth swelling, ear pain, eye pain, visual changes CARDIOVASCULAR: Absent: chest pain, syncope, palpitations, irregular heart rate, lightheadedness , peripheral edema RESPIRATORY: Absent: cough, shortness of breath, dyspnea with exertion, orthopnea, wheezing, stridor, hemoptysis GASTROINTESTINAL: Absent: abdominal pain, abdominal distension, nausea, vomiting, diarrhea, constipation, melena, hematochezia GENITOURINARY: Absent: dysuria, frequency, urgency, hesitancy, hematuria, flank pain, genital pain MUSCULOSKELETAL: Absent: myalgia, arthralgia, joint swelling, back pain, neck pain SKIN: Absent: rash, itching, pallor HEMATOLOGIC/IMMUNOLOGIC: Absent: easy bleeding, easy bruising, lymphadenopathy, frequent infections ENDOCRINE: Absent: unexplained weight gain, unexplained weight loss, heat intolerance, cold intolerance NEUROLOGIC: Absent: headache, focal weakness or paresthesias, dizziness, unsteady gait, seizure, mental status changes, bladder or bowel incontinence PSYCHIATRIC: Absent: anxiety, depression, suicidal or homicidal ideation, hallucinations. PHYSICAL EXAMINATION Vital Signs - 24 hr 03/10/17 03/10/17 03/11/17 17:25 21:00 05:00 Temperature 98.8 F 98.5 F 101.1 F H Pulse Rate 79 77 92 H Respiratory 22 18 20 Rate Blood Pressure 155/83 128/71 135/78 O2 Sat by Pulse 97 Oximetry (%) 03/11/17 03/11/17 08:37 08:38 Temperature 99.8 F H Pulse Rate 101 H Respiratory 18 Rate Blood Pressure 137/83 O2 Sat by Pulse 99 Oximetry (%) GENERAL: Awake, alert, and fully oriented, no acute distress HEAD: Normal with no signs of trauma. EYES: Pupils equal, round and reactive to light, extraocular movements intact, sclera anicteric, conjunctiva clear. No lid lag. NECK: Normal range of motion, supple without lymphadenopathy, JVD, or masses. LUNGS:b/l rales at the bases HEART: Tachycardic ABDOMEN: Soft, nontender, not distended, normoactive bowel sounds, no guarding, no rebound, no masses. No hepatomegaly or splenomegaly. MUSCULOSKELETAL: Normal range of motion at all joints. No bony deformities or tenderness. No CVA tenderness. NEUROLOGICAL: Cranial nerves II-XII intact. Normal speech. Normal gait. SKIN: pale, no rash noted Laboratory Results - last 24 hr 03/10/17 03/10/17 03/10/17 18:00 18:05 18:05 WBC 13.1 H Corrected WBC (auto) RBC 1.35 L D Hgb 4.9 L* D Hct 14.5 L MCV 107.6 H MCH 36.5 H MCHC 33.9 RDW 17.1 H Plt Count 277 D MPV 8.0 D Total Counted 100 Neutrophils % Product Marketing Director Neutrophils % (Manual) 77 Band Neuts % (Manual) Lymphocytes % Product Marketing Director Lymphocytes % (Manual) 16 D Monocytes % Product Marketing Director Monocytes % (Manual) 5 Eosinophils % Product Marketing Director Eosinophils % (Manual) 1 Basophils % Product Marketing Director Myelocytes % (Man) 1 Nucleated RBC % Hypersegmented Neuts Hypochromia Toxic Granulation Dohle Bodies Platelet Estimate Adequate Polychromasia Poikilocytosis Basophilic Stippling Anisocytosis Microcytosis Macrocytosis Spherocytes Siderocytes Sickle Cells Target Cells Tear Drop Cells Ovalocytes Stomatocytes Helmet Cells Orozco-Friendly Bodies Brick Rings Atilio Cells Acanthocytes (Spur) Rouleaux Fragmented RBCs Schistocytes Morphology Comment Retic Count Sodium 137 Potassium 4.1 Chloride 107 Carbon Dioxide 23 Anion Gap 7 L BUN 14 Creatinine 0.6 L Creat Clearance w eGFR > 60 Random Glucose 119 H D Calcium 8.4 L Total Bilirubin 7.9 H D Direct Bilirubin AST 44 H D ALT 27 Alkaline Phosphatase 76 LD Total Total Protein 7.2 Albumin 3.5 Direct Antiglob Test Negative 03/10/17 03/10/1703/10/17 18:05 18:05 18:05 WBC Corrected WBC (auto) RBC Hgb Hct MCV MCH MCHC RDW Plt Count MPV Total Counted Neutrophils % Neutrophils % (Manual) Band Neuts % (Manual) Lymphocytes % Lymphocytes % (Manual) Monocytes % Monocytes % (Manual) Eosinophils % Eosinophils % (Manual) Basophils % Myelocytes % (Man) Nucleated RBC % Hypersegmented Neuts Hypochromia Toxic Granulation Dohle Bodies Platelet Estimate Polychromasia Poikilocytosis Basophilic Stippling Anisocytosis Microcytosis Macrocytosis Spherocytes Siderocytes Sickle Cells Target Cells Tear Drop Cells Ovalocytes Stomatocytes Helmet Cells Orozco-Friendly Bodies Brick Rings [place] Cells Acanthocytes (Spur) Rouleaux Fragmented RBCs Schistocytes Morphology Comment Retic Count Sodium 138 Potassium 4.2 Chloride 107 Carbon Dioxide 23 Anion Gap 8 BUN 15 Creatinine 0.5 L Creat Clearance w eGFR > 60 Random Glucose 121 H Calcium 8.6 Total Bilirubin 7.6 H Direct Bilirubin Cancelled AST 43 H ALT 28 Alkaline Phosphatase 69 LD Total 521 H D Total Protein 6.9 Albumin 3.4 Direct Antiglob Test 03/10/17 03/10/17 03/11/17 18:05 19:10 07:20 WBC 11.3 H 19.1 H D Corrected WBC (auto) 15.40 RBC 1.29 L 1.10 L Hgb 4.8 L* 4.1 L* D Hct 13.9 L 11.9 L MCV 107.7 H 107.9 H MCH 37.3 H 37.0 H MCHC 34.6 34.3 RDW 16.3 H 16.8 H Plt Count 261 247 MPV 7.7 7.7 Total Counted 100 100 Neutrophils % Product Marketing Director Neutrophils % (Manual) 73 89 H D Band Neuts % (Manual) No Result Required. 1 D Lymphocytes % Product Marketing Director Lymphocytes % (Manual) 15 7 L D Monocytes % Product Marketing Director Monocytes % (Manual) 11 H D 3 L Eosinophils % Product Marketing Director Eosinophils % (Manual) 0 D Basophils % Product Marketing Director Myelocytes % (Man) 1 Nucleated RBC % 6 H 24 H* Hypersegmented Neuts Cancelled Hypochromia Cancelled Toxic Granulation Cancelled Dohle Bodies Cancelled Platelet Estimate Adequate Polychromasia Cancelled Poikilocytosis Cancelled Basophilic Stippling Cancelled Anisocytosis Cancelled Microcytosis Cancelled Macrocytosis 2+ Cancelled Spherocytes Cancelled Siderocytes Cancelled Sickle Cells Cancelled Target Cells Cancelled Tear Drop Cells Cancelled Ovalocytes Cancelled Stomatocytes Cancelled Helmet Cells Cancelled Orozco-Friendly Bodies Cancelled Brick Rings Cancelled Atilio Cells Cancelled Acanthocytes (Spur) Cancelled Rouleaux Cancelled Fragmented RBCs Cancelled Schistocytes Cancelled Morphology Comment Cancelled Retic Count Sodium Potassium Chloride Carbon Dioxide Anion Gap BUN Creatinine Creat Clearance w eGFR Random Glucose Calcium Total Bilirubin 7.8 H Direct Bilirubin 2.0 H D AST 42 H ALT 28 Alkaline Phosphatase 75 LD Total Total Protein 7.0 Albumin 3.4 Direct Antiglob Test 03/11/17 03/11/17 03/11/17 07:20 07:20 07:30 WBC Corrected WBC (auto) RBC Hgb Hct MCV MCH MCHC RDW Plt Count MPV Total Counted Neutrophils % Neutrophils % (Manual) Band Neuts % (Manual) Lymphocytes % Lymphocytes % (Manual) Monocytes % Monocytes % (Manual) Eosinophils % Eosinophils % (Manual) Basophils % Myelocytes % (Man) Nucleated RBC % Hypersegmented Neuts Hypochromia Toxic Granulation Dohle Bodies Platelet Estimate Polychromasia Poikilocytosis Basophilic Stippling Anisocytosis Microcytosis Macrocytosis Spherocytes Siderocytes Sickle Cells Target Cells Tear Drop Cells Ovalocytes Stomatocytes Helmet Cells Orozco-Friendly Bodies Brick Rings Atilio Cells Acanthocytes (Spur) Rouleaux Fragmented RBCs Schistocytes Morphology Comment Retic Count 11.45 H* D Sodium 139 Potassium 4.1 Chloride 109 H Carbon Dioxide 23 Anion Gap 7 L BUN 17 Creatinine 0.6 L Creat Clearance w eGFR Random Glucose 110 H Calcium 8.2 L Total Bilirubin 7.0 H Cancelled Direct Bilirubin 2.3 H Cancelled AST 85 H D Cancelled ALT 31 Cancelled Alkaline Phosphatase 118 H D Cancelled LD Total Total Protein 6.8 Cancelled Albumin 3.3 L Cancelled Direct Antiglob Test ASSESSMENT/PLAN: 31M seen in the ICU for Sickle cell crisis Patient to be transfered to [facility] for more appropriate management. Visit type - Emergency Visit Emergency Visit: No - New Patient This patient is new to me today: Yes Date on this admission: 03/11/17 - Critical Care Critical Care patient: Yes Total Critical Care Time (in minutes): 30 Critical Care Statement: The care of this patient involved high complexity decision making to prevent further life threatening deterioration of the patient 's condition and/or to evaluate & treat vital organ system(s) failure or risk of failure.
--- NOTE | 2017-03-11 17:14 | PN ---
Physical Exam: SUBJECTIVE: Got a sign out form that alexis has been accepted by [facility] ICU attending. Call placed to [facility] [phone], patient has been accepted and waiting for bed in ICU. They got the face sheet. They will call us once ICU bed is available. Visit type - Emergency Visit Emergency Visit: Yes ED Registration Date: 03/10/17 Care time: The patient presented to the Emergency Department on the above date and was hospitalized for further evaluation of their emergent condition. - New Patient This patient is new to me today: Yes Date on this admission: 03/11/17 - Critical Care Critical Care patient: Yes Total Critical Care Time (in minutes): 30 Critical Care Statement: The care of this patient involved high complexity decision making to prevent further life threatening deterioration of the patient 's condition and/or to evaluate & treat vital organ system(s) failure or risk of failure.
[2017-03-11 17:18] LABS: HIV 1 & 2 AB NEGATIVE; HIV 1 AGp24 NEGATIVE
[2017-03-11 17:28] LABS: BASOPHIL 0.3 % (0-2.0); MCH 35.6 pg (25.7-33.7); MCHC 35.2 g/dl (32.0-35.9); MEAN CELL VOLUME 101.2 fl (80-96); MEAN PLT VOLUME 7.4 fl (7.5-11.1); PLATELET COUNT 211 K/MM3 (134-434); RDW 21.3 % (11.9-15.9); WHITE BLOOD COUNT 14.8 K/mm3 (4.0-10.0)
[2017-03-11] MEDS ORDERED: FUROSEMIDE 40 MG/4 ML INJECTABLE VIAL IVPB ONE (20:03)
[2017-03-12] MEDS ORDERED: FUROSEMIDE 40 MG/4 ML INJECTABLE VIAL ONE (00:10)
[2017-03-12 00:54] VITALS: TEMP 98.5
[2017-03-12 01:02] VITALS: BP 136/87; PULSE 103
[2017-03-12] MEDS: HYDROmorphone HCL CARPU-JECT 2 MG/1 ML DISP.SYRIN IVPB PRN (01:26)
--- NOTE | 2017-03-12 09:28 | DS ---
Physical Exam: SUBJECTIVE: Patient seen and examined OBJECTIVE: Vital Signs Period Temp Pulse Resp BP Sys/Dumont Pulse Ox Last 24 Hr 98.5 F-100.6 F 90-103 18-29 123-159/59-90 92-95 PHYSICAL EXAM GENERAL: The patient is awake, alert, and fully oriented, in no acute distress. HEAD: Normal with no signs of trauma. EYES: PERRL, extraocular movements intact, sclera anicteric, conjunctiva clear. ENT: Ears normal, nares patent, oropharynx clear without exudates, moist mucous membranes. NECK: Trachea midline, full range of motion, supple. LUNGS: Breath sounds equal, clear to auscultation bilaterally, no wheezes, no crackles, no accessory muscle use. HEART: Regular rate and rhythm, S1, S2 without murmur, rub or gallop. ABDOMEN: Soft, nontender, nondistended, normoactive bowel sounds, no guarding, no rebound, no hepatosplenomegaly, no masses. EXTREMITIES: 2+ pulses, warm, well-perfused, no edema. NEUROLOGICAL: Cranial nerves II through XII grossly intact. Normal speech, gait not observed. PSYCH: Normal mood, normal affect. SKIN: Warm, dry, normal turgor, no rashes or lesions noted. LABS Laboratory Results - last 24 hr 03/11/17 03/11/17 03/11/17 07:20 07:20 15:10 WBC RBC Hgb Hct MCV MCH MCHC RDW Plt Count MPV Neutrophils % Lymphocytes % Monocytes % Eosinophils % Basophils % Sodium 139 Potassium 4.1 Chloride 109 H Carbon Dioxide 23 Anion Gap 7 L BUN 17 Creatinine 0.6 L Random Glucose 110 H Calcium 8.2 L Total Bilirubin 7.0 H Cancelled Direct Bilirubin 2.3 H Cancelled AST 85 H D Cancelled ALT 31 Cancelled Alkaline Phosphatase 118 H D Cancelled Total Protein 6.8 Cancelled Albumin 3.3 L Cancelled HIV 1&2 Antibody Screen Negative HIV P24 Antigen Negative 03/11/17 17:21 WBC 14.8 H RBC 1.20 L Hgb 4.3 L* Hct 12.1 L MCV 101.2 H MCH 35.6 H MCHC 35.2 RDW 21.3 H D Plt Count 211 MPV 7.4 L Neutrophils % 89.0 H D Lymphocytes % 6.3 L D Monocytes % 4.4 Eosinophils % 0.0 D Basophils % 0.3 Sodium Potassium Chloride Carbon Dioxide Anion Gap BUN Creatinine Random Glucose Calcium Total Bilirubin Direct Bilirubin AST ALT Alkaline Phosphatase Total Protein Albumin HIV 1&2 Antibody Screen HIV P24 Antigen HOSPITAL COURSE: Date of Admission:03/10/17 Date of Discharge: 03/12/17 Discharge Summary Reason For Visit: PAIN CRISIS Current Active Problems Anemia (Acute) Fever (Acute) Pain (Acute) Pneumonia (Acute) Sickle cell pain crisis (Acute) Condition: Stable - Instructions Disposition: TRANSFER ACUTE CARE/OTHER HOSP - Home Medications Comprehensive Discharge Medication List: Ambulatory Orders Hydroxyurea [Hydrea] 2,000 mg PO DAILY 03/01/17 Folic Acid 1 mg PO 03/08/17 Morphine *Immediate Release* 15 mg PO QID PRN 03/08/17 Morphine Sulfate ER 15 mg PO 03/08/17 Nicotine Patch [Nicoderm Patch -] 1 patch TD PRN PRN 03/08/17 - Discharge Referral Referred to [facility] Med P.C.: No
[2017-03-12] MEDS ORDERED: EPOETIN ALFA 20,000 UNIT/1 ML VIAL SQ SCH (10:00)
[2017-03-12] MEDS ORDERED: HYDROXYUREA 500 MG CAPSULE PO SCH (10:00)
[2017-03-12] MEDS ORDERED: PANTOPRAZOLE SODIUM 100 ML IVPB SCH (10:00)
[2017-03-12] MEDS ORDERED: NICOTINE 7 MG/24 HOURS TOPICAL PATCH TD SCH (10:00)
[2017-03-12] MEDS ORDERED: FOLIC ACID 1 MG TABLET (FP) PO SCH (10:00)
--- NOTE | 2017-03-12 12:24 | PN ---
Progress Note (short form) - Note Progress Note: Was informed ovenight around 1am by nurse that patient was at [facility] ICU I had discussed the case in detail with Sickle center attending Dr. Mckinney on and with hospitalist/icu teams on I called the icu resident Dr. Hickey and ICU attending Dr. Vasquez and informed them about the patient in detial Also discussed with heme-onc fellow certifed refrigeration operator and from Heme team at [facility] and discussed case in great detail aswell On am Discussed with Dr. Adan ---heme attending at [facility] in detail Discussed with blood bank attending at [facility] in detail
[2017-03-13] MEDS ORDERED: fentaNYL 12mcg/hr PATCH.TD72 TD SCH (10:45)
== END 2017-03-12 01:42 | disposition short-term general hospital (02) | DRG 811 ==
LOC: JER 06:04 → JERBED 10:30 → J5S 12:11 → OBSVTOIN 03-10 09:30 → JICU 03-11 09:45
PROVIDERS: ADMIT Internal Medicine; ATTEND Registered Nurse
PROC: 30253N1 (ICD-10-PCS; principal; 2017-03-09)
DX: D57.01 Hb-SS disease with acute chest syndrome (principal); J18.9 Pneumonia, unspecified organism; D58.9 Hereditary hemolytic anemia, unspecified
CPT/HCPCS: 36415; 36430; 71010-TC; 71020-TC; 80048; 80053; 80076; 81003; 83010; 83615; 83690; 83735; 84100; 85025; 85027; 85044; 85610; 85651; 85730; 86880; 86902; 86922; 87040; 87086; 87389; 93005; 93010; 93970-TC; 99284-25; G0378; J0885; J1644; J8999; P9038; P9054; P9058

== ENCOUNTER 2017-10-27 02:31 | Inpatient (IN) | payer OTHER ==
[2017-10-27 03:14] VITALS: BMI 21.2
[2017-10-27] MEDS ORDERED: MORPHINE SULFATE 10 MG/1 ML *VIAL ONE ×3 (04:11→06:20)
[2017-10-27] MEDS ORDERED: morphine CARPU-JECT 10 MG/1 ML DISP.SYRIN IVPUSH ONE ×2 (04:12→05:31)
[2017-10-27] MEDS ORDERED: SODIUM CHLORIDE 0.9% 500 ML INFUS.BAG IV ONE ×2 (04:13→06:18)
--- NOTE | 2017-10-27 04:24 | PDOC ---
"History of Present Illness - General History Source: Patient, Spouse () Exam Limitations: No Limitations - History of Present Illness Initial Comments: 10/27/17 05:03 The patient is a 32 year old male with past medical history of sickle cell and stroke history is brought the ED accompanied by his complaining of leg pain since 1:30 am. The patient reports the pain maniested around 1:30am which stayed strong full 10 minutes leading the patient to seek care. The patient reports being fine earlier in the day until the pain manifested. The patient reports the pain manifested on his leg which then radiated to his chest and back. The patient states a possible aggravation for the pain can be due to the change in the fluctuating weather temp. The patient reports he takes percocet and folic acid at home to alleviate the pain. The patient reports he suffered a stroke the February of 2017 after receiving the wrong blood leading to an infection. The reports reports he was rehabilitation at [facility]. Social History: The patients reports he quit smoking after the stroke. No alcohol or recreational use reported. Allergies: None reported. 10/27/17 05:42 <Alba Ramos - Last Filed: 10/27/17 05:42> <Nishi Castillo - Last Filed: 10/28/17 04:54> - General Chief Complaint: Sickle Cell Crisis Stated Complaint: SICKLE CELL CRISIS Time Seen by Provider: 10/27/17 03:10 Past History <Alba Ramos - Last Filed: 10/27/17 05:42> - Past Medical History Anemia: Yes (Sickle cell) COPD: No - Suicide/Smoking/Psychosocial Hx Smoking History: Never smoked Have you smoked in the past 12 months: No Number of Cigarettes Smoked Daily: 10 Cigars Per Day: 0 Information on smoking cessation initiated: No 'Breaking Loose' booklet given: 03/08/17 Hx Alcohol Use: No Drug/Substance Use Hx: No Substance Use Type: None Hx Substance Use Treatment: No <Nishi Castillo - Last Filed: 10/28/17 04:54> - Past Medical History Allergies/Adverse Reactions: Allergies Allergy/AdvReac Type Severity Reaction Status Date / Time No Known Allergies Allergy Verified 10/27/17 03:14 Home Medications: Ambulatory Orders Hydroxyurea [Hydrea] 2,000 mg PO DAILY 03/01/17 Nicotine Patch [Nicoderm Patch -] 1 patch TD PRN PRN 03/08/17 Acetaminophen [Tylenol .Regular Strength -] 325 mg PO Q6H PRN tablet 10/27/17 Azithromycin Ivpb [Zithromax Ivpb -] 500 mg IVPB DAILY vial 10/27/17 Deferasirox [Jadenu] 360 mg PO BID 10/27/17 Enoxaparin [Lovenox -] 40 mg SQ DAILY disp.syrin 10/27/17 Morphine *Sr* [MS Contin -] 50 mg PO BID 10/27/17 Oxycodone HCl/Acetaminophen [Percocet 5-325 mg Tablet] 1 - 2 tab PO Q4H Sodium Chloride [Normal Saline -] 75 ml IV ASDIR infus.bag 10/27/17 Review of Systems - Review of Systems Able to Perform ROS?: Yes Comments:: 10/27/17 05:04 GENERAL/CONSTITUTIONAL: No fever or chills. No weakness. HEAD, EYES, EARS, NOSE AND THROAT: No change in vision. No ear pain or discharge. No sore throat. CARDIOVASCULAR: (+) chest pain No shortness of breath. RESPIRATORY: No cough, wheezing, or hemoptysis. GASTROINTESTINAL: No nausea, vomiting, diarrhea or constipation. GENITOURINARY: No dysuria, frequency, or change in urination. MUSCULOSKELETAL: (+) back pain. (+) Lower extremity pain. No joint or muscle swelling or pain. No neck SKIN: No rash NEUROLOGIC: No headache, vertigo, loss of consciousness, or change in strength/ sensation. ENDOCRINE: No increased thirst. No abnormal weight change. HEMATOLOGIC/LYMPHATIC: No anemia, easy bleeding, or history of blood clots. ALLERGIC/IMMUNOLOGIC: No hives or skin allergy. <Alba Ramos - Last Filed: 10/27/17 05:42> *Physical Exam - Vital Signs Last Vital Signs Temp Pulse Resp BP Pulse Ox 97.5 F L 61 22 102/56 100 10/27/17 03:10 10/27/17 03:10 10/27/17 03:10 10/27/17 03:10 10/27/17 03:10 - Physical Exam Comments: 10/27/17 05:04 GENERAL: Awake, alert, and fully oriented X3,Afribirl. in no acute distress HEAD: No signs of trauma EYES: PERRLA, EOMI, slight icteric eyes, conjunctiva clear ENT: Auricles normal inspection, hearing grossly normal, nares patent, oropharynx clear without exudates. Moist mucosa NECK: Normal ROM, supple, no lymphadenopathy, JVD, or masses LUNGS: Breath sounds equal, clear to auscultation bilaterally. No wheezes, and no crackles HEART: Regular rate and rhythm, normal S1 and S2, no murmurs, rubs or gallops ABDOMEN:(+) hepatomegaly. Soft, nontender, normoactive bowel sounds. No guarding, no rebound. No masses EXTREMITIES: (+) back pain, joint pain writhing around. Normal range of motion, no edema. No clubbing or cyanosis. No cords, erythema, or tenderness NEUROLOGICAL: Cranial nerves II through XII grossly intact. Normal speech, normal gait SKIN: Warm, Dry, normal turgor, no rashes or lesions noted. <Alba Ramos - Last Filed: 10/27/17 05:42> - Vital Signs Last Vital Signs Temp Pulse Resp BP Pulse Ox 97.5 F L 61 22 102/56 100 10/27/17 03:10 10/27/17 03:10 10/27/17 03:10 10/27/17 03:10 10/27/17 03:10 <Nishi Castillo - Last Filed: 10/28/17 04:54> ED Treatment Course - LABORATORY CBC & Chemistry Diagram: 10/27/17 05:05 10/27/17 04:15 - ADDITIONAL ORDERS Additional order review: Laboratory Results 10/27/17 04:15 Sodium 141 Potassium 3.9 Chloride 110 H Carbon Dioxide 26 Anion Gap 5 L BUN 10 D Creatinine 0.6 L Creat Clearance w eGFR > 60 Random Glucose 107 H Calcium 8.4 L Total Bilirubin 2.9 H D AST 26 D ALT 20 D Alkaline Phosphatase 170 H D Total Protein 8.6 H D Albumin 4.3 D - Medications Given in the ED: ED Medications Discontinued Medications Generic Name Dose Route Start Last Admin Trade Name Freq PRN Reason Stop Dose Admin Morphine Sulfate 10 mg 10/27/17 04:12 10/27/17 04:14 Morphine Injection - IVPUSH 10/27/17 04:13 10 mg ONCE ONE Administration Sodium Chloride 1,000 ml 10/27/17 04:13 10/27/17 04:15 Normal Saline - IV 10/27/17 04:14 1,000 ml ONCE ONE Administration <Alba Ramos - Last Filed: 10/27/17 05:42> - LABORATORY CBC & Chemistry Diagram: 10/27/17 18:35 10/27/17 04:15 - Medications Given in the ED: ED Medications Discontinued Medications Generic Name Dose Route Start Last Admin Trade Name Sherry PRN Reason Stop Dose Admin Morphine Sulfate 10 mg 10/27/17 04:12 10/27/17 04:14 Morphine Injection - IVPUSH 10/27/17 04:13 10 mg ONCE ONE Administration Sodium Chloride 1,000 ml 10/27/17 04:13 10/27/17 04:15 Normal Saline - IV 10/27/17 04:14 1,000 ml ONCE ONE Administration <Nishi Castillo - Last Filed: 10/28/17 04:54> Medical Decision Making - Medical Decision Making 10/27/17 04:25 Pt comes with sickle crisis that began today at 1:30AM 10/27/17 06:17 ISTOP reveals no drug abuse: Search Terms: ronakmaya carrillo, 1985 Search Date: 10/27/2017 06:16:53 AM The Drug Utilization Report below displays all of the controlled substance prescriptions, if any, that your patient has filled in the last twelve months. The information displayed on this report is compiled from pharmacy submissions to the Department, and accurately reflects the information as submitted by the pharmacies. This report was requested by: Nishi Castillo | Reference #: [id number] There are no results for the search terms that you entered. 10/28/17 04:52 Pt will be admitted to the hospitalist service for sickle cell crisis. Retic count is 17+; normal is under 2. Pt treated with 10mg morphine IVP x 3; the hospital is out of dilaudid. <Nishi Castillo - Last Filed: 10/28/17 04:54> *DC/Admit/Observation/Transfer - Attestations Scribe Attestion: 10/27/17 05:04 Documentation prepared by Alba Ramos, acting as medical accounts receivable specialist for Nishi Castillo MD. <Alba Ramos - Last Filed: 10/27/17 05:42> - Discharge Dispostion Admit: Yes <Nishi Castillo - Last Filed: 10/28/17 04:54> Diagnosis at time of Disposition: Sickle cell pain crisis, Hemolysis - Discharge Dispostion Condition at time of disposition: Guarded"
[2017-10-27 04:49] LABS: ALBUMIN 4.3 g/dl (3.4-5.0); ANION GAP 5 (8-16); BILIRUBIN,TOTAL 2.9 mg/dL (0.2-1.0); BLOOD UREA NITROGEN 10 mg/dL (7-18); CALCIUM 8.4 mg/dL (8.5-10.1); CHLORIDE 110 mmol/L (98-107); CO2 26 mmol/L (21-32); CREATININE 0.6 mg/dL (0.7-1.3); GLUCOSE,RANDOM 107 mg/dL (74-106); SGPT/ALT 20 U/L (12-78); SODIUM 141 mmol/L (136-145); TOT PROT 8.6 g/dl (6.4-8.2)
[2017-10-27 04:50] LABS: ALK PHOS 170 U/L (45-117)
[2017-10-27 04:51] LABS: POTASSIUM 3.9 mmol/L (3.5-5.1); SGOT/AST 26 U/L (15-37)
[2017-10-27 05:12] LABS: BASO % 0.5 % (0-2.0); EOS % 0.9 % (0-4.5); HEMATOCRIT 24.7 % (35.4-49); HEMOGLOBIN 8.6 GM/dL (11.7-16.9); LYMPH % 27.8 % (8-40); MCH 36.7 pg (25.7-33.7); MCHC 34.7 g/dl (32.0-35.9); MEAN CELL VOLUME 105.9 fl (80-96); MEAN PLT VOLUME 7.8 fl (7.5-11.1); MONO % 8.2 % (3.8-10.2); NEUT % 62.6 % (42.8-82.8); PLATELET COUNT 503 K/MM3 (134-434); RBC 2.33 M/mm3 (4.00-5.60); RDW 19.9 % (11.9-15.9); WHITE BLOOD COUNT 10.5 K/mm3 (4.0-10.0)
[2017-10-27 05:50] LABS: ADD RBC MORPHOLOGY YES
[2017-10-27 05:52] LABS: ANISOCYTOSIS 1+; MACROCYTOSIS 2+
[2017-10-27] MEDS ORDERED: morphine CARPU-JECT 4 MG/1 ML DISP.SYRIN IVPUSH ONE ×2 (06:17→16:10)
[2017-10-27] MEDS ORDERED: SODIUM CHLORIDE 1,000 ML IV SCH ×2 (07:15→08:15)
--- NOTE | 2017-10-27 08:03 | HP ---
CHIEF COMPLAINT: " B/L severe leg pain" PCP ([facility] at [facility]): Dr. Mckinney HISTORY OF PRESENT ILLNESS: Patient is a 32 year old male with h/o sickel cell crisis presented to the ED with the chief complaint of "B/L severe leg pain" that started at 1:30 am today. As per the patient, he was apparently well until evening. He had a glass of [place] at 10pm and was feeling fine. Then pain started suddenly at 1:30 am, throbbing in nature especially in the calf area, 10/10 in intensity. Then he started having pain the lower back and chest. Patient states he usually gets similar kind of symptoms during crisis. Aggravated by change in weather. Denies sob, palpitation, cough, fever, chills, rigors, sweating, abdominal pain , nausea, vomiting, loc, trauma, any neurological deficits, numbness or tingling. Bowel/Bladder habit normal. Sleep/Appetite normal prior to illness. Patient was admitted at [facility] ICU in Feb, 2017 with acute chest syndrome and infiltrates. Was transferred to [facility] for further management. 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 Patients at bed side mentions that after he was transferred to [facility] last year, he had a stroke for which he was in the hospital for 2 months and at [facility] for a month. ED physician confirmed with ISTOP that reveals no drug abuse:The report was requested by: Nishi Banks Reference #: [id number] ER course was notable for: (1) Afebrile, no leukocytosis, H/H 8.6/24.7, Platelet count 503, T. bili 2.9, Reticulocyte count 17.6 (2) CXR: Infiltrates at the bases (3) IV Morphine 10 mg , Benadryl, 2L of IV NS Recent Travel: None PAST MEDICAL HISTORY: Sickel cell crisis, Stroke, previous Blood transfusion PAST SURGICAL HISTORY: None Social History: Smoking: Quit since Feb, 2017 Alcohol: Socially. Last drink was yesterday at 10 pm-1 medina colada. Drugs: Denies Family History: Allergies No Known Allergies Allergy (Verified 10/27/17 03:14) HOME MEDICATIONS: Home Medications Medication Instructions Recorded Hydroxyurea [Hydrea] 2,000 mg PO DAILY 03/01/17 Folic Acid 1 mg PO DAILY 03/08/17 Nicotine Patch [Nicoderm Patch -] 1 patch TD PRN PRN 03/08/17 Oxycodone HCl/Acetaminophen 1 - 2 tab PO Q4H 10/27/17 [Percocet 5-325 mg Tablet] REVIEW OF SYSTEMS CONSTITUTIONAL: Absent: fever, chills, diaphoresis, generalized weakness, malaise, loss of appetite, weight change HEENT: Absent: rhinorrhea, nasal congestion, throat pain, throat swelling, difficulty swallowing, mouth swelling, ear pain, eye pain, visual changes CARDIOVASCULAR: Absent: chest pain, syncope, palpitations, irregular heart rate, lightheadedness , peripheral edema RESPIRATORY: Absent: cough, shortness of breath, dyspnea with exertion, orthopnea, wheezing, stridor, hemoptysis GASTROINTESTINAL: Absent: abdominal pain, abdominal distension, nausea, vomiting, diarrhea, constipation, melena, hematochezia GENITOURINARY: Absent: dysuria, frequency, urgency, hesitancy, hematuria, flank pain, genital pain MUSCULOSKELETAL: Present: back pain, b/l leg pain Absent: myalgia, arthralgia, joint swelling, neck pain SKIN: Absent: rash, itching, pallor HEMATOLOGIC/IMMUNOLOGIC: Absent: easy bleeding, easy bruising, lymphadenopathy, frequent infections ENDOCRINE: Absent: unexplained weight gain, unexplained weight loss, heat intolerance, cold intolerance NEUROLOGIC: Absent: headache, focal weakness or paresthesias, dizziness, unsteady gait, seizure, mental status changes, bladder or bowel incontinence PSYCHIATRIC: Absent: anxiety, depression, suicidal or homicidal ideation, hallucinations. PHYSICAL EXAMINATION Vital Signs - 24 hr 10/27/17 03:10 Temperature 97.5 F L Pulse Rate 61 Respiratory 22 Rate Blood Pressure 102/56 O2 Sat by Pulse 100 Oximetry (%) GENERAL: Young male, complaining of pain in b/l legs, low back pain, Awake, alert, and fully oriented. HEAD: Normal with no signs of trauma. EYES: EOM intact, mild pallor, no icterus. EARS, NOSE, THROAT: Ears normal. Dry mucous membranes. NECK: Normal range of motion, supple without lymphadenopathy, JVD, or masses. LUNGS: B/L Breath sounds equal. No wheezes. Minimal bibasilar crackles. No accessory muscle use. HEART: Regular rate and rhythm, normal S1 and S2 without murmur. ABDOMEN: Soft, nontender, not distended, normoactive bowel sounds, no guarding, no rebound, no masses. No hepatomegaly or splenomegaly. MUSCULOSKELETAL: Normal range of motion at all joints. No bony deformities or tenderness. No CVA tenderness. UPPER EXTREMITIES: 2+ pulses, warm, well-perfused. No cyanosis. No clubbing. No peripheral edema. LOWER EXTREMITIES: 2+ pulses, warm, well-perfused. B/L calf tenderness. No peripheral edema. NEUROLOGICAL: No facial droop, Cranial nerves II-XII intact. Normal speech. Normal gait. PSYCHIATRIC: Cooperative. Good eye contact. Appropriate mood and affect. SKIN: Warm, dry, normal turgor, no rashes or lesions noted, normal capillary refill. Laboratory Results - last 24 hr 10/27/17 10/27/17 10/27/17 04:15 04:15 05:05 WBC 10.5 H RBC 2.33 L D Hgb 8.6 L D Hct 24.7 L D MCV 105.9 H MCH 36.7 H MCHC 34.7 RDW 19.9 H Plt Count 503 H D MPV 7.8 Neutrophils % 62.6 D Lymphocytes % 27.8 D Monocytes % 8.2 D Eosinophils % 0.9 D Basophils % 0.5 Anisocytosis 1+ Macrocytosis 2+ Retic Count 17.69 H* D Sodium 141 Potassium 3.9 Chloride 110 H Carbon Dioxide 26 Anion Gap 5 L BUN 10 D Creatinine 0.6 L Creat Clearance w eGFR > 60 Random Glucose 107 H Calcium 8.4 L Total Bilirubin 2.9 H D AST 26 D ALT 20 D Alkaline Phosphatase 170 H D Total Protein 8.6 H D Albumin 4.3 D ASSESSMENT/PLAN: Patient is a 32 year old male with H/O sickel cell crisis, stroke, previous blood transfusion presented to the ED with the chief complaint of "B/L severe leg pain" that started at 1:30 am today. # Sickel cell painful episode c/o b/l leg pain, low back pain, chest pain On arrival, afebrile, no leukocytosis, Platelet count 503, T. bili 2.9, Reticulocyte count 17.6 Admit in Med-surg/ Inpatient IV NS @ 75 mls/hr IV Morphine 4mg Q4H (dilaudid not available in the pharmacy at this time) IV Benadryl 25 mg once Percocet Q6H PRN IV Tylenol 1gm once IV Torodol 30mg once Nasal oxygen at 2L Incentive spirometer Hb Electrophoresis, LDH Confirmed with pharmacy, no longer takes Folic acid. Pt is on Deferafiox 360mg PO BID, Hydroxyurea 2gm daily- will continue as discussed with Dr. Hobbs. # B/L leg pain- R/O DVT Duplex of b/l lower ext ordered # Bibasilar Infiltrates on CXR Afebrile, no leukocytosis, but CXR shows infiltrates. Given pts history, will empirically treat with IV Ceftriaxone and IV Azithromycin. Blood cultures drawn before the abx was given. Urine cultures to be sent. # Acute hemolytic anemia H/H 8.6/24.7, will watch for any bleeding Repeat H/H at 6 pm. Blood transfusion if Hb is < 7 gm/dl # Smoking cessation Continue Nicotine Patch # FEN IV NS @ 75 mls/hr Electrolytes WNL Regular diet as tolerated # Prophylaxis For DVT: On Lovenox 40 sq daily For GI: Not indicated # Code Status: Full Code # Dispo: Admitted in Med-Surg/ Inpatient. Plan is to transfer to [facility] for further evaluation and care. 2pm: Call reached out to [facility] transfer center. Pt has to be transferred for possible blood transfusion (has had many antibodies due to frequent blood transfusions) and possible plasma exchange. Dr. Hobbs has already spoken with the heme fellow Dr. Walton at [facility] who accepts the patient. 6 pm: Received call back from [facility] third year resident Dr. Trammell who accepts the patient. Awaiting for bed. Transfer papers has been completed and is attached in the chart. Signed out to the night team to follow up the transfer. Illness, Investigation and Plan of care explained to the patient. He verbalized understanding. Case discussed with Dr. Chinchilla. Visit type - Emergency Visit Emergency Visit: Yes ED Registration Date: 10/27/17 Care time: The patient presented to the Emergency Department on the above date and was hospitalized for further evaluation of their emergent condition. - New Patient This patient is new to me today: Yes Date on this admission: 10/27/17 - Critical Care Critical Care patient: No Hospitalist Screening - Colonoscopy Questionnaire Colonoscopy Questionnaire: Colonoscopy Questionnaire - Patient: 50 - 75 years old and never had a screening colonoscopy: Unknown History of colon or rectal polyps, or CA: Unknown History of IBD, Crohn's disease or UC: Unknown History of abdominal radiation therapy as a child: Unknown - Relative: 1 with colon or rectal CA, or polyps at age 60 or younger: Unknown Colon or rectal CA diagnosed at age 45 or younger: Unknown Multiple relatives with colon or rectal CA: Unknown - Outcome: Screening Result: Negative Screen
[2017-10-27] MEDS ORDERED: oxyCODONE HCL 5 MG TABLET PO PRN (08:14)
[2017-10-27] MEDS ORDERED: ACETAMINOPHEN 325 MG TABLET (FP) PO PRN ×2 (08:15→08:47)
[2017-10-27] MEDS ORDERED: NICOTINE 21 MG/24 HOURS TOPICAL PATCH TD PRN (08:20)
[2017-10-27] MEDS: morphine SULFATE 4 MG/ML VIAL IVPUSH PRN ×2 (09:28→13:33)
[2017-10-27] MEDS ORDERED: KETOROLAC TROMETHAMINE 30 MG/1 ML VIAL IVPUSH ONE ×2 (09:52→14:30)
[2017-10-27] MEDS: ENOXAPARIN NA (PORCINE) 40 MG/0.4 ML DISP.SYRIN SQ SCH (10:01)
[2017-10-27] MEDS ORDERED: DEFERASIROX 360 MG PO SCH (11:00)
[2017-10-27] MEDS ORDERED: CEFTRIAXONE 1 GM in DEXTROSE 5%-WATER - 50 ML IVPB ONE (11:00)
[2017-10-27] MEDS ORDERED: ACETAMINOPHEN 1000 MG/100 ML VIAL (NON FORMULARY) IVPB ONE (11:00)
[2017-10-27] MEDS ORDERED: AZITHROMYCIN IVPB 500 MG in DEXTROSE 5%-WATER - 250 ML IVPB SCH (11:00)
[2017-10-27] MEDS ORDERED: DEXTROSE 5%-WATER - 50 ML IVPB ONE (11:25)
[2017-10-27] MEDS ORDERED: cefTRIAXone SODIUM 1 GM VIAL ONE (11:25)
[2017-10-27] MEDS ORDERED: traMADol HCL 50 MG TABLET PO ONE (12:37)
--- NOTE | 2017-10-27 12:53 | PN ---
Progress Note (short form) - Note Progress Note: Patient seen and examined. Presently, admitted for Pain crisis. ROS unobtainable, pt c/o pain generalized, bilateral knees, UE, Chest, back. Screaming in pain. Thus far received, morphine IVP's, IV tylenol, IV toradol , no dialudid available in the hx. Brief Hx, HgBSS h/o Acute chest, HyperHemolysis, CVA in 02/2017 Multiple allo, auto antibodies. Prolonged hospitalization at [facility] late last year. Most recently seen at [facility], on 10/17/2017. On hydrea and Jadenu. Pt follows at [facility] , [employer]. O/E General: In moderate distress from pain HEENT: Mild jaundice. NCAT Cor: RRR Lungs: poor inspiratory effort ABd: benign LE: No CCE Nuero: AAOx3 Last Vital Signs Temp Pulse Resp BP Pulse Ox 98.4 F 63 20 140/75 100 10/27/17 10:09 10/27/17 10:09 10/27/17 10:09 10/27/17 10:09 10/27/17 10:09 CBC, BMP 10/27/17 05:05 10/27/17 04:15 Current Medications Generic Name Dose Route Start Last Admin Trade Name Freq PRN Reason Stop Dose Admin Acetaminophen 325 mg 10/27/17 08:47 Tylenol - PO Q6H PRN PAIN LEVEL 7 - 10 Enoxaparin Sodium 40 mg 10/27/17 10:00 10/27/17 10:01 Lovenox - SQ 40 mg DAILY AARON Administration Hydroxyurea 2,000 mg 10/27/17 12:00 Hydrea - PO DAILY AARON Sodium Chloride 1,000 mls @ 75 mls/hr 10/27/17 10:10 Normal Saline - IV ASDIR AARON Azithromycin 500 mg/ Dextrose 250 mls @ 250 mls/hr 10/27/17 11:00 IVPB DAILY AARON Morphine Sulfate 4 mg 10/27/17 07:09 10/27/17 09:28 Morphine Sulfate IVPUSH 4 mg Q4H PRN Administration PAIN LEVEL 7 - 10 Nicotine 21 mg 10/27/17 08:20 Nicoderm Patch - TD PRN PRN to stop smoking Non-Formulary Medication 360 mg 10/27/17 11:00 Deferasirox [Jadenu] PO BID AARON Impression/Plan: is a 32 year old 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 Prolonged hospitalization at [facility] late last year. Most recently seen at [facility], on 10/17/2017. On hydrea and Jadenu. Now with VOC crises manifesting as severe pain in multiple sites Labs reviewed, at his baseline. Plan: IVF add HgEP Pain control with Morphine IVP 4mg IVP prn for breakthrough Start Morphine sulfate ER his home dose. can consider percocet for breakthrough today will c/w Hydrea and Jadenu No Dialudid in-house will hold off on blood transfusion. CXR with ?inflitrates, will start ceftriaxone , azithromycin. Given his hx and his f.u, perceive that he would need to be transferred to [facility]. Spoke to Hematology fellow and attending at [facility], who are in agreement with the plan. Will need to arrange to be transferred to [facility]- [facility] medicine med surg. will do the paper work. Pt aware of the plan. Discussed in detail with Pt/his /pts medical assembler and RN here.
[2017-10-27] MEDS: HYDROXYUREA 500 MG CAPSULE PO SCH (12:59)
[2017-10-27] MEDS ORDERED: morphine SO4 SUSTAINED ACTING 15 MG TABLET.SA PO SCH ×2 (13:15→13:27)
--- NOTE | 2017-10-27 13:35 | PN ---
Teaching Attending Note Name of Resident: Cary Luna ATTENDING PHYSICIAN STATEMENT I saw and evaluated the patient. I reviewed the resident's note and discussed the case with the resident. I agree with the resident's findings and plan as documented. SUBJECTIVE: This is a 32 year old man with a history of sickle cell disease, sickle cell crisis with acute chest syndrome, CVA who comes to the ED complaining of severe pain in both legs. The pain started suddenly at 1:30 am. He then developed pain in his lower back and chest. Symptoms are typical of sickle cell crisis. OBJECTIVE: Vital Signs Period Temp Pulse Resp BP Sys/[place] Pulse Ox Last 24 Hr 97.5 F-98.4 F 61-76 18-22 102-140/56-80 100-100 HEART: S1S2, RRR LUNGS: Clear ABDOMEN: Soft, non-tender, non-distended, normal BS EXTREMITIES: No edema JOINTS: No swelling Laboratory Tests 10/27/17 10/27/17 10/27/17 04:15 04:15 05:05 WBC 10.5 H RBC 2.33 L D Hgb 8.6 L D Hct 24.7 L D MCV 105.9 H MCH 36.7 H MCHC 34.7 RDW 19.9 H Plt Count 503 H D MPV 7.8 Neutrophils % 62.6 D Lymphocytes % 27.8 D Monocytes % 8.2 D Eosinophils % 0.9 D Basophils % 0.5 Anisocytosis 1+ Macrocytosis 2+ Retic Count 17.69 H* D Sodium 141 Potassium 3.9 Chloride 110 H Carbon Dioxide 26 Anion Gap 5 L BUN 10 D Creatinine 0.6 L Creat Clearance w eGFR > 60 Random Glucose 107 H Calcium 8.4 L Total Bilirubin 2.9 H D AST 26 D ALT 20 D Alkaline Phosphatase 170 H D LD Total Total Protein 8.6 H D Albumin 4.3 D 10/27/17 10:05 WBC RBC Hgb Hct MCV MCH MCHC RDW Plt Count MPV Neutrophils % Lymphocytes % Monocytes % Eosinophils % Basophils % Anisocytosis Macrocytosis Retic Count Sodium Potassium Chloride Carbon Dioxide Anion Gap BUN Creatinine Creat Clearance w eGFR Random Glucose Calcium Total Bilirubin AST ALT Alkaline Phosphatase LD Total 302 H D Total Protein Albumin Home Medications Medication Instructions Recorded Hydroxyurea [Hydrea] 2,000 mg PO DAILY 03/01/17 Folic Acid 1 mg PO DAILY 03/08/17 Nicotine Patch [Nicoderm Patch -] 1 patch TD PRN PRN 03/08/17 Deferasirox [Jadenu] 360 mg PO BID 10/27/17 Morphine *Sr* [MS Contin -] 50 mg PO BID 10/27/17 Oxycodone HCl/Acetaminophen 1 - 2 tab PO Q4H 10/27/17 [Percocet 5-325 mg Tablet] ASSESSMENT AND PLAN: This is a 32 year old man with a history of sickle cell disease, sickle cell crisis with acute chest syndrome, CVA who presented to the ED with severe pain in both legs. 1. Sickle cell crisis - IV fluid - Oxygen - Morphine as needed for pain - Continue deferasirox, hydroxyurea - Venous dopplers of legs to evaluate for DVT 2. Possible pneumonia - No clinical evidence of pneumonia - Has questionable infiltrates on CXR - will treat empirically with Rocephin , Zithromax 3. Anemia secondary to sickle cell disease/crisis - Monitor hemoglobin 4. Nicotine dependence - Continue nicotine patch
[2017-10-27 14:45] LABS: URINE APPEARANCE CLEAR; URINE BILIRUBIN NEGATIVE (<2.0 mg/dL); URINE BLOOD NEGATIVE (NEGATIVE); URINE COLOR YELLOW; URINE GLUCOSE (UA) NEGATIVE (NEGATIVE); URINE KETONE NEGATIVE (NEGATIVE); URINE LEUK ESTERASE NEGATIVE (NEGATIVE); URINE NITRITE NEGATIVE (NEGATIVE)
[2017-10-27 14:48] LABS: URINE PROTEIN 1+ (NEGATIVE)
[2017-10-27 14:54] LABS: URINE MUCUS RARE
[2017-10-27] MEDS ORDERED: morphine SULFATE 4 MG/ML VIAL IVPUSH ONE (16:30)
[2017-10-27] MEDS: HYDROmorphone *PCA* 10MG/50ML DISP.SYRIN PCA SCH (17:40)
[2017-10-27] MEDS: SODIUM CHLORIDE 1,000 ML IV SCH (17:48)
--- NOTE | 2017-10-27 19:15 | DS ---
Physical Exam: SUBJECTIVE: Patient seen and examined at bedside. Patient continues to complain of pain, but states that it is better with the dilaudid SPORTS BOOK SERVER. OBJECTIVE: Vital Signs Period Temp Pulse Resp BP Sys/[place] Pulse Ox Last 24 Hr 97.5 F-98.6 F 61-76 18-22 102-140/55-80 100-100 PHYSICAL EXAM GENERAL: The patient is awake, alert, and fully oriented, in moderate distress 2 /2 pain. HEAD: Normal with no signs of trauma. EYES: PERRL, extraocular movements intact, sclera icteric, conjunctiva clear. LUNGS: Breath sounds equal, clear to auscultation bilaterally, no wheezes, no crackles, no accessory muscle use. HEART: Regular rhythm, tachycardic, S1, S2 without murmur, rub or gallop. Chest wall tender to palpation. ABDOMEN: Soft, nontender, nondistended, normoactive bowel sounds, no guarding, no rebound, no hepatosplenomegaly, no masses. EXTREMITIES: 2+ pulses, warm, well-perfused, no edema. NEUROLOGICAL: Cranial nerves II through X grossly intact. slurred speech ( baseline), gait not observed. SKIN: Warm, dry, normal turgor, no rashes or lesions noted. LABS Laboratory Results - last 24 hr 10/27/17 10/27/17 10/27/17 04:15 04:15 05:05 WBC 10.5 H RBC 2.33 L D Hgb 8.6 L D Hct 24.7 L D MCV 105.9 H MCH 36.7 H MCHC 34.7 RDW 19.9 H Plt Count 503 H D MPV 7.8 Neutrophils % 62.6 D Lymphocytes % 27.8 D Monocytes % 8.2 D Eosinophils % 0.9 D Basophils % 0.5 Anisocytosis 1+ Macrocytosis 2+ Retic Count 17.69 H* D Sodium 141 Potassium 3.9 Chloride 110 H Carbon Dioxide 26 Anion Gap 5 L BUN 10 D Creatinine 0.6 L Creat Clearance w eGFR > 60 Random Glucose 107 H Calcium 8.4 L Total Bilirubin 2.9 H D AST 26 D ALT 20 D Alkaline Phosphatase 170 H D LD Total Total Protein 8.6 H D Albumin 4.3 D Urine Color Urine Appearance Urine pH Ur Specific [place] Urine Protein Urine Glucose (UA) Urine Ketones Urine Blood Urine Nitrite Urine Bilirubin Urine Urobilinogen Ur Leukocyte Esterase Urine WBC (Auto) Urine RBC (Auto) Urine Mucus 10/27/17 10/27/17 10:05 13:50 WBC RBC Hgb Hct MCV MCH MCHC RDW Plt Count MPV Neutrophils % Lymphocytes % Monocytes % Eosinophils % Basophils % Anisocytosis Macrocytosis Retic Count Sodium Potassium Chloride Carbon Dioxide Anion Gap BUN Creatinine Creat Clearance w eGFR Random Glucose Calcium Total Bilirubin AST ALT Alkaline Phosphatase LD Total 302 H D Total Protein Albumin Urine Color Yellow Urine Appearance Clear Urine pH 5.0 Ur Specific [place] 1.015 Urine Protein 1+ H Urine Glucose (UA) Negative Urine Ketones Negative Urine Blood Negative Urine Nitrite Negative Urine Bilirubin Negative Urine Urobilinogen 2.0 Ur Leukocyte Esterase Negative Urine WBC (Auto) 1 Urine RBC (Auto) None Urine Mucus Rare HOSPITAL COURSE: Date of Admission:10/27/17 The patient is a 32 yo m w/ PMH SCD w/ multiple crises, acute chest syndrome, 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 He currently follows with a email production consultant at [facility]. In the ED, the patient was found to be in obvious pain with a Hb of 8.6, t.bili 2.9 and a reticulocyte count of 17.6. The patient was admitted for management of Sickle cell crisis. Hemotology was consulted. The patient was treated with Morphine, Benadryl, IV tylenol, IV toradol, IV traumadol, PO roxicodone and finally a diludid SPORTS BOOK SERVER due to refractory pain. On the med-surg floors, the patient began to spike fevers with a tmax of 102.7. The patient was upgraded to the ICU. Given his alloimunization requiring specialized blood transfusions as well as his rapidly dropping hemoglobin level, history of acute chest syndrome and the presence of fevers, the decision was made to transfer the patient to [facility]. The patient was transferred to the [facility] ICU under the care of Dr. Francisca Perez. Date of Transfer: 10/28/17 Minutes to complete discharge: 52 Discharge Summary Reason For Visit: SICKLE CELL PAIN CRISIS Current Active Problems Hemolysis (Acute) Anemia (Chronic) Sickle cell pain crisis (Chronic) Condition: Guarded - Instructions Diet, Activity, Other Instructions: You are being transferred to [facility] ([facility] Disposition: TRANSFER ACUTE CARE/OTHER HOSP - Home Medications Comprehensive Discharge Medication List: Ambulatory Orders Hydroxyurea [Hydrea] 2,000 mg PO DAILY 03/01/17 Nicotine Patch [Nicoderm Patch -] 1 patch TD PRN PRN 03/08/17 Acetaminophen [Tylenol .Regular Strength -] 325 mg PO Q6H PRN tablet 10/27/17 Azithromycin Ivpb [Zithromax Ivpb -] 500 mg IVPB DAILY vial 10/27/17 Deferasirox [Jadenu] 360 mg PO BID 10/27/17 Enoxaparin [Lovenox -] 40 mg SQ DAILY disp.syrin 10/27/17 Morphine *Sr* [MS Contin -] 50 mg PO BID 10/27/17 Oxycodone HCl/Acetaminophen [Percocet 5-325 mg Tablet] 1 - 2 tab PO Q4H Sodium Chloride [Normal Saline -] 75 ml IV ASDIR infus.bag 10/27/17 This patient is new to me today: Yes Date on this admission: 10/28/17 Emergency Visit: Yes ED Registration Date: 10/27/17 Care time: The patient presented to the Emergency Department on the above date and was hospitalized for further evaluation of their emergent condition. Critical Care patient: Yes Total Critical Care Time (in minutes): 60 Critical Care Statement: The care of this patient involved high complexity decision making to prevent further life threatening deterioration of the patient 's condition and/or to evaluate & treat vital organ system(s) failure or risk of failure. - Discharge Referral Referred to [facility] Med P.C.: No
[2017-10-27 19:42] LABS: BASO % 0.5 % (0-2.0); LYMPH % 11.7 % (8-40); MCH 36.6 pg (25.7-33.7); MCHC 34.6 g/dl (32.0-35.9); MEAN CELL VOLUME 105.8 fl (80-96); MEAN PLT VOLUME 7.8 fl (7.5-11.1); MONO % 11.3 % (3.8-10.2); NEUT % 76.5 % (42.8-82.8); PLATELET COUNT 390 K/MM3 (134-434); RBC 1.83 M/mm3 (4.00-5.60); RDW 20.2 % (11.9-15.9); WHITE BLOOD COUNT 16.2 K/mm3 (4.0-10.0)
[2017-10-27 20:09] LABS: HEMOGLOBIN 6.7 GM/dL (11.7-16.9)
[2017-10-27 20:10] LABS: HEMATOCRIT 19.4 % (35.4-49)
[2017-10-28] MEDS: HYDROmorphone *PCA* 10MG/50ML DISP.SYRIN PCA SCH ×4 (01:08→12:48)
[2017-10-28] MEDS ORDERED: ACETAMINOPHEN 325 MG TABLET (FP) PO ONE (05:49)
[2017-10-28 07:47] LABS: BASO % 0.4 % (0-2.0); EOS % 0.1 % (0-4.5); HEMATOCRIT 15.5 % (35.4-49); LYMPH % 6.2 % (8-40); MCH 35.9 pg (25.7-33.7); MCHC 34.4 g/dl (32.0-35.9); MEAN CELL VOLUME 104.4 fl (80-96); MEAN PLT VOLUME 7.3 fl (7.5-11.1); MONO % 11.6 % (3.8-10.2); NEUT % 81.7 % (42.8-82.8); PLATELET COUNT 321 K/MM3 (134-434); RBC 1.48 M/mm3 (4.00-5.60); WHITE BLOOD COUNT 18.8 K/mm3 (4.0-10.0)
[2017-10-28 08:04] LABS: HEMOGLOBIN 5.3 GM/dL (11.7-16.9)
[2017-10-28 08:13] LABS: ALBUMIN 3.5 g/dl (3.4-5.0); ANION GAP 10 (8-16); BLOOD UREA NITROGEN 20 mg/dL (7-18); CALCIUM 8.1 mg/dL (8.5-10.1); CHLORIDE 111 mmol/L (98-107); CO2 21 mmol/L (21-32); GLUCOSE,RANDOM 97 mg/dL (74-106); MAGNESIUM 1.7 mg/dL (1.8-2.4); PHOSPHOROUS 3.2 mg/dL (2.5-4.9); POTASSIUM 3.7 mmol/L (3.5-5.1); SGOT/AST 64 U/L (15-37); SGPT/ALT 21 U/L (12-78); SODIUM 142 mmol/L (136-145)
[2017-10-28 08:15] LABS: ALK PHOS 139 U/L (45-117); CREATININE 0.6 mg/dL (0.7-1.3); LDH 723 U/L (87-241); TOT PROT 6.9 g/dl (6.4-8.2)
--- NOTE | 2017-10-28 08:49 | PN ---
Progress Note, Physician Chief Complaint: Pain Management Consulted for pain management for this patient in sickle cell crisis, started on dilaudid MANAGER APPOINTMENT overnight for pain control History of Present Illness: Patient used 11.6 mg of dilaudid over 7 hours overnight. still in pain - Current Medication List Current Medications: Active Medications Acetaminophen (Tylenol -) 325 mg PO Q6H PRN PRN Reason: PAIN LEVEL 7 - 10 Enoxaparin Sodium (Lovenox -) 40 mg SQ DAILY [facility] Last Admin: 10/27/17 10:01 Dose: 40 mg Hydromorphone HCl (Dilaudid Senior Principal Software Engineer -) 10 mg MANAGER APPOINTMENT MANAGER APPOINTMENT [facility] PRN Reason: Protocol Stop: 11/03/17 16:59 Last Admin: 10/28/17 07:09 Dose: 10 mg Hydroxyurea (Hydrea -) 2,000 mg PO DAILY [facility] Last Admin: 10/27/17 12:59 Dose: 2,000 mg Sodium Chloride (Normal Saline -) 1,000 mls @ 75 mls/hr IV ASDIR [facility] Last Admin: 10/27/17 17:48 Dose: 75 mls/hr Vancomycin HCl 1,000 mg/ (Dextrose) 250 mls @ 166.667 mls/hr IVPB ONCE ONE PRN Reason: Protocol Stop: 10/28/17 10:44 Nicotine (Nicoderm Patch -) 21 mg TD PRN PRN PRN Reason: to stop smoking Non-Formulary Medication (Deferasirox [Jadenu]) 360 mg PO BID [facility] - Objective Vital Signs: Vital Signs Temperature 100.7 F H 10/28/17 08:38 Pulse Rate 102 H 10/28/17 07:30 Respiratory Rate 22 10/28/17 07:30 Blood Pressure 124/58 10/28/17 07:30 O2 Sat by Pulse Oximetry (%) 100 10/27/17 21:00 Constitutional: Yes: Moderate Distress Cardiovascular: Yes: WNL Respiratory: Yes: WNL Gastrointestinal: Yes: WNL Labs: CBC, BMP 10/28/17 07:30 10/28/17 07:30 Assessment/Plan Patient in pain despite using large doses of MANAGER APPOINTMENT will add 0.4mg continuous dose of dilaudid per hour dept of anesthesia will continue to follow
[2017-10-28] MEDS ORDERED: VANCOMYCIN 1,000 MG in DEXTROSE 5%-WATER - 250 ML IVPB ONE (09:15)
--- NOTE | 2017-10-28 09:25 | PN ---
Progress Note, Physician Chief Complaint: ID Full note dictated Patient being transferred to [facility] - Current Medication List Current Medications: Active Medications Acetaminophen (Tylenol -) 325 mg PO Q6H PRN PRN Reason: PAIN LEVEL 7 - 10 Enoxaparin Sodium (Lovenox -) 40 mg SQ DAILY [facility] Last Admin: 10/27/17 10:01 Dose: 40 mg Hydromorphone HCl (Dilaudid Vc++ Developer -) 10 mg BUSINESS TAXES SPECIALIST BUSINESS TAXES SPECIALIST [facility] PRN Reason: Protocol Stop: 11/03/17 09:29 Hydroxyurea (Hydrea -) 2,000 mg PO DAILY [facility] Last Admin: 10/27/17 12:59 Dose: 2,000 mg Sodium Chloride (Normal Saline -) 1,000 mls @ 75 mls/hr IV ASDIR [facility] Last Admin: 10/27/17 17:48 Dose: 75 mls/hr Vancomycin HCl 1,000 mg/ (Dextrose) 250 mls @ 166.667 mls/hr IVPB ONCE ONE PRN Reason: Protocol Stop: 10/28/17 10:44 Nicotine (Nicoderm Patch -) 21 mg TD PRN PRN PRN Reason: to stop smoking Non-Formulary Medication (Deferasirox [Jadenu]) 360 mg PO BID [facility] - Objective Vital Signs: Vital Signs Temperature 100.7 F H 10/28/17 08:38 Pulse Rate 102 H 10/28/17 07:30 Respiratory Rate 22 10/28/17 07:30 Blood Pressure 124/58 10/28/17 07:30 O2 Sat by Pulse Oximetry (%) 100 10/27/17 21:00 Labs: CBC, BMP 10/28/17 07:30 10/28/17 07:30 Problem List - Problems (1) Sickle cell pain crisis Code(s): D57.00 - HB-SS DISEASE WITH CRISIS, UNSPECIFIED (2) Fever Code(s): R50.9 - FEVER, UNSPECIFIED Assessment/Plan Laboratory Tests 10/27/17 10/28/17 10/28/17 18:35 07:30 07:30 WBC 16.2 H D Pending Hgb 5.3 L* D Plt Count 321 Retic Count BUN 20 H D Total Bilirubin 5.0 H D AST 64 H D LD Total 723 H D 10/28/17 07:30 WBC Hgb Plt Count Retic Count 17.83 H* BUN Total Bilirubin AST LD Total Assessment Sickle crisis Fever ? source Plan Continue Ceftriaxone 2 grs daily empiric for pneumococcal coverage No clear PNA present Summer TANNER
[2017-10-28] MEDS: SODIUM CHLORIDE 1,000 ML IV SCH (10:22)
[2017-10-28] MEDS ORDERED: CEFTRIAXONE 2 GM in DEXTROSE 5%-WATER 100 ML IVPB SCH (10:30)
[2017-10-28] MEDS ORDERED: PT OWN MED DRAWER 7, Y5N ONE (10:40)
--- NOTE | 2017-10-28 11:00 | CONS ---
DATE OF CONSULTATION: HISTORY: This is a 32-year-old male with known sickle cell disease with a history of stroke brought to the emergency room by his complaining of generalized pains particularly his lower extremities. He has been seen by Dr. Mitchell of Hematology here, and her note was reviewed indicating a history of acute chest pain syndrome, hyperhemolysis, and stroke in February 2017. He has been multiple alloantibody and autoantibodies and prolonged hospital history at [facility] last year. Most recently he was seen in the sickle cell clinic on October 17, 2017 and is on Hydrea and Jadenu. He is followed by a ski topper at [facility]. I am asked to see him now for further evaluation of fever. He has minimal cough but does have chest pain. He denies any abdominal pain or urinary complaints. He has received a dose of ceftriaxone, and his cultures thus far are no growth. PAST MEDICAL HISTORY: As noted above. MEDICATIONS: Include Lovenox, Hydrea, azithromycin, ceftriaxone, morphine. ALLERGIES: None known. SOCIAL HISTORY: Nonsmoker. No history of alcohol or drug use. FAMILY HISTORY: Reviewed and noncontributory. REVIEW OF SYSTEMS: Respiratory: Denies cough, hemoptysis, sputum. Cardiac: No palpitations, syncope, murmur. Gastrointestinal: Mild abdominal pain noted. No vomiting or diarrhea. Genitourinary: No dysuria, hematuria. PHYSICAL EXAMINATION: Vital Signs: Reveals a young man in distress secondary to pain. T-max 102.4, currently 100.7, pulse 102, blood pressure 120/58, respirations 20. Neck: Supple without adenopathy. Lungs: Clear to percussion and auscultation. Heart: S1, S2. Regular rhythm without audible murmur. Abdomen: Soft. Nontender. Not distention. No rebound tenderness. Normoactive bowel sounds. No guarding or rebound. Extremities: No clubbing, cyanosis, or edema. LABORATORY DATA: White count 16.2, hemoglobin 5.3, platelets 321, reticulocyte count 17.8, bilirubin 5. AST 64, alkaline phosphatase 139, LDH 723. Urinalysis: 1 WBC. Blood and urine cultures are pending, but blood cultures thus far no growth this morning. Chest x-ray was reviewed and shows no definite infiltrate seen. ASSESSMENT: A 32-year-old male with painful sickle crisis and fever. No obvious localizing focus of infection, and blood cultures initially no growth. Agree the patient needs empiric coverage for possible bacteremia and pneumonia with ceftriaxone 2 g IV q.24 hours. He is being transferred to [facility] when a bed is available. GYPSY MARKS M.D. [id number]
[2017-10-28] MEDS: HYDROXYUREA 500 MG CAPSULE PO SCH (11:18)
[2017-10-28 11:32] LABS: COCAINE, UR NEGATIVE ng/ml (CUTOFF=300); METHADONE, UR NEGATIVE ng/ml (CUTOFF=300); PHENCYCLIDINE,URINE NEGATIVE ng/ml (CUTOFF=25); URINE AMPHETAMINES NEGATIVE ng/ml (CUTOFF=500); URINE BARBITURATES NEGATIVE ng/ml (CUTOFF=200); URINE BENZODIAZEPINES NEGATIVE ng/ml (CUTOFF=200)
[2017-10-28 11:36] LABS: OPIATES, URI POSITIVE ng/ml (CUTOFF=300)
[2017-10-28] MEDS ORDERED: ACETAMINOPHEN 325 MG TABLET (FP) PO PRN (11:37)
[2017-10-28] MEDS ORDERED: DEXTROSE 5%-WATER 100 ML IVPB ONE (11:44)
--- NOTE | 2017-10-28 12:28 | EKG ---
Test Reason : Blood Pressure : / mmHG Vent. Rate : 052 BPM Atrial Rate : 052 BPM P-R Int : 172 ms QRS Dur : 106 ms QT Int : 486 ms P-R-T Axes : 008 -01 018 degrees QTc Int : 451 ms SINUS BRADYCARDIA WITH MARKED SINUS ARRHYTHMIA MODERATE VOLTAGE CRITERIA FOR LVH, MAY BE NORMAL VARIANT BORDERLINE ECG WHEN COMPARED WITH ECG OF 08-MAR-2017 11:09, FUSION COMPLEXES ARE NO LONGER PRESENT ABERRANT CONDUCTION IS NO LONGER PRESENT NE INTERVAL HAS DECREASED Confirmed by CHAYA NAILS MD ([id number]) on 10/28/2017 12:27:56 PM Referred By: Confirmed By:CHAYA NAILS MD
[2017-10-28] MEDS ORDERED: SODIUM CHLORIDE 0.45% 1,000 ML IV SCH (12:30)
[2017-10-28] MEDS: ENOXAPARIN NA (PORCINE) 40 MG/0.4 ML DISP.SYRIN SQ SCH (12:54)
--- NOTE | 2017-10-28 13:18 | CON.PULM ---
Consult Consult Specialty:: PULMONARY Referred by:: Dr. Edouard Reason for Consultation:: sickle cell crisis - History of Present Illness Chief Complaint: pain History of Present Illness: 32yo male with h/o sickle cell disease (ss) with complications of acute chest syndrome, CVA, with h/o hyperhemolysis syndrome, allo and auto antibodies who was admitted with leg, back and chest pain. Started on IVF, pain control. No fevers at home but now spiking to 103. Initial CXR showing bibasilar changes, started on antibiotics. Admission Hgb 8.6, today down to 5.3. Hypoxic to 70s on room air, up to low 90s on 50% ventimask. Lethargic but arousable, unable to provide detailed history at this time. Awaiting transfer to [facility]. - History Source History Provided By: Patient, Medical Record Limitations to Obtaining History: Clinical Condition - Alcohol/Substance Use Hx Alcohol Use: No - Smoking History Smoking history: Never smoked Have you smoked in the past 12 months: No Aproximately how many cigarettes per day: 10 If you are a former smoker, when did you quit?: 03/01 Home Medications - Allergies Allergies/Adverse Reactions: Allergies Allergy/AdvReac Type Severity Reaction Status Date / Time No Known Allergies Allergy Verified 10/27/17 03:14 - Home Medications Home Medications: Ambulatory Orders Hydroxyurea [Hydrea] 2,000 mg PO DAILY 03/01/17 Nicotine Patch [Nicoderm Patch -] 1 patch TD PRN PRN 03/08/17 Acetaminophen [Tylenol .Regular Strength -] 325 mg PO Q6H PRN tablet 10/27/17 Azithromycin Ivpb [Zithromax Ivpb -] 500 mg IVPB DAILY vial 10/27/17 Deferasirox [Jadenu] 360 mg PO BID 10/27/17 Enoxaparin [Lovenox -] 40 mg SQ DAILY disp.syrin 10/27/17 Morphine *Sr* [MS Contin -] 50 mg PO BID 10/27/17 Oxycodone HCl/Acetaminophen [Percocet 5-325 mg Tablet] 1 - 2 tab PO Q4H Sodium Chloride [Normal Saline -] 75 ml IV ASDIR infus.bag 10/27/17 Family Disease History - Family Disease History Family Disease History: CA: Grandparent (gastric) Review of Systems Unable to obtain ROS, reason: pt lethargic Physical Exam Vital Sings: Vital Signs Temperature 103.0 F H 10/28/17 12:00 Pulse Rate 94 H 10/28/17 12:48 Respiratory Rate 20 10/28/17 12:48 Blood Pressure 145/72 10/28/17 12:48 O2 Sat by Pulse Oximetry (%) 100 10/27/17 21:00 Constitutional: Yes: Moderate Distress Eyes: Yes: Conjunctiva Clear, EOM Intact HENT: Yes: Atraumatic, Normocephalic Neck: Yes: Supple, Trachea Midline Cardiovascular: Yes: Tachycardia Respiratory: Yes: Diminished ...Clubbing: No Gastrointestinal: Yes: Normal Bowel Sounds, Distention Edema: No Neurological: Yes: Lethargy Labs: CBC, BMP 10/28/17 07:30 10/28/17 07:30 Imaging - Results Chest X-ray: Report Reviewed, Image Reviewed (bibasilar changes) Problem List - Problems (1) Sickle cell pain crisis Code(s): D57.00 - HB-SS DISEASE WITH CRISIS, UNSPECIFIED Assessment/Plan Sickle Cell Crisis Acute Hemolytic Anemia Acute Hypoxic Respiratory Failure r/o Acute Chest Syndrome h/o Hyperhemolysis Syndrome h/o CVA - O2 to keep SpO2 >90% - pain control - incentive spirometry - hypotonic fluids - empiric antibiotics - f/u cultures - monitor H/H, LFTs - transfuse per hematology - agree with transfer to tertiary care - transfer to ICU for closer monitoring until transfer
[2017-10-28 14:35] VITALS: PULSE 98
[2017-10-28] MEDS ORDERED: HYDROmorphone HCL CARPU-JECT 2 MG/1 ML DISP.SYRIN IVPUSH ONE (14:47)
--- NOTE | 2017-10-28 14:49 | PN ---
Progress Note (short form) - Note Progress Note: Pt. to be transferred out. Will discontinue TRAVELING INVENTORY ASSOCIATE and order 2mg dilaudid IVP prior to transfer.
[2017-10-28] MEDS ORDERED: oxyCODONE HCL 5 MG TABLET PO ONE (15:15)
[2017-10-28 15:26] VITALS: BP 118/64; TEMP 99.8
--- NOTE | 2017-10-28 15:40 | PN ---
Progress Note (short form) - Note Progress Note: PAtient seen and examined c/o pain in the legs/back denies shortness of breath no abdominal pain/diarrhea/urinary symptoms oriented in person, place Last Vital Signs Temp Pulse Resp BP Pulse Ox 99.8 F H 98 H 28 H 118/64 98 10/28/17 15:25 10/28/17 15:25 10/28/17 15:25 10/28/17 15:25 10/28/17 14:30 Cor: RSR, No murmurs, No gallops Lungs: rt. base crackles Abd: Soft, Normal bowel sounds, Ext:No significant edema Abnormal Lab Results 10/27/17 10/28/17 10/28/17 18:35 07:30 07:30 WBC 16.2 H D 18.8 H RBC 1.83 L D 1.48 L Hgb 6.7 L* D 5.3 L* D Hct 19.4 L D 15.5 L D MCV 105.8 H 104.4 H MCH 36.6 H 35.9 H RDW 20.2 H 20.0 H MPV 7.3 L Lymphocytes % 6.2 L D Monocytes % 11.3 H 11.6 H Retic Count Chloride 111 H BUN 20 H D Creatinine 0.6 L Calcium 8.1 L Magnesium 1.7 L Total Bilirubin 5.0 H D AST 64 H D Alkaline Phosphatase 139 H LD Total 723 H D 10/28/17 07:30 WBC RBC Hgb Hct MCV MCH RDW MPV Lymphocytes % Monocytes % Retic Count 17.83 H* Chloride BUN Creatinine Calcium Magnesium Total Bilirubin AST Alkaline Phosphatase LD Total Home Medication List Medication Instructions Recorded Confirmed Type Hydroxyurea [Hydrea] 2,000 mg PO DAILY 03/01/17 10/27/17 History Nicotine Patch [Nicoderm Patch -] 1 patch TD PRN PRN 03/08/17 10/27/17 History Deferasirox [Jadenu] 360 mg PO BID 10/27/17 10/27/17 History Morphine *Sr* [MS Contin -] 50 mg PO BID 10/27/17 10/27/17 History Oxycodone HCl/Acetaminophen 1 - 2 tab PO Q4H 10/27/17 10/27/17 History [Percocet 5-325 mg Tablet] Active Medications Generic Name Dose Route Start Last Admin Trade Name Freq PRN Reason Stop Dose Admin Acetaminophen 650 mg 10/28/17 11:37 10/28/17 11:18 Tylenol - PO 650 mg Q6H PRN Administration FEVER Enoxaparin Sodium 40 mg 10/27/17 10:00 10/28/17 12:54 Lovenox - SQ 40 mg DAILY AARON Administration Hydroxyurea 2,000 mg 10/27/17 12:00 10/28/17 11:18 Hydrea - PO 2,000 mg DAILY AARON Administration Sodium Chloride 1,000 mls @ 75 mls/hr 10/27/17 10:10 10/28/17 10:22 Normal Saline - IV Not Given ASDIR [facility] Ceftriaxone Sodium 2 gm/ 100 mls @ 200 mls/hr 10/28/17 10:30 10/28/17 11:45 Dextrose IVPB 200 mls/hr DAILY [facility]ON Administration Sodium Chloride 1,000 mls @ 75 mls/hr 10/28/17 12:30 10/28/17 12:25 1/2 Normal Saline IV 75 mls/hr ASDIR [facility]ARON Administration Nicotine 21 mg 10/27/17 08:20 Nicoderm Patch - TD PRN PRN to stop smoking Non-Formulary Medication 360 mg 10/27/17 11:00 Deferasirox [Jadenu] PO BID [facility] A/P 32 y/o patient with vasoocclusive sickle cell crisis, pain at multiple sites, multiple alloantibodies, h/o hyperhemolysis, acute chest , pneumonia, CVA in . Will tranfer to [facility] --discussed with the sickle team at [facility] is working on getting appropriate PRBcs. will need to coordinate with hematology/sickle team/blood bank team at [facility] regarding need and coordination of transfusion Discussed with patient and [id number] at bed side will follow
--- NOTE | 2017-10-28 16:54 | PN ---
Teaching Attending Note Name of Resident: Ashok Walker ATTENDING PHYSICIAN STATEMENT I saw and evaluated the patient. I reviewed the resident's note and discussed the case with the resident. I agree with the resident's findings and plan as documented. SUBJECTIVE: Patient continues to have pain and had to be started on Dilaudid [employer]. He has been having fevers, tachycardia, tachypnea and hypoxia. He was transferred to ICU. OBJECTIVE: Vital Signs Period Temp Pulse Resp BP Sys/[place] Pulse Ox Last 24 Hr 99.8 F-103.1 F 62-111 20-34 110-145/52-72 94-100 HEART: S1S2, tachycardic LUNGS: Clear ABDOMEN: Soft, non-tender, non-distended, normal BS EXTREMITIES: No edema Laboratory Results - last 24 hr 10/27/17 10/28/17 10/28/17 18:35 04:00 07:30 WBC 16.2 H D 18.8 H RBC 1.83 L D 1.48 L Hgb 6.7 L* D 5.3 L* D Hct 19.4 L D 15.5 L D MCV 105.8 H 104.4 H MCH 36.6 H 35.9 H MCHC 34.6 34.4 RDW 20.2 H 20.0 H Plt Count 390 D 321 MPV 7.8 7.3 L Neutrophils % 76.5 D 81.7 Lymphocytes % 11.7 D 6.2 L D Monocytes % 11.3 H 11.6 H Eosinophils % 0.0 D 0.1 D Basophils % 0.5 0.4 Retic Count Sodium Potassium Chloride Carbon Dioxide Anion Gap BUN Creatinine Creat Clearance w eGFR Random Glucose Lactic Acid Calcium Phosphorus Magnesium Total Bilirubin AST ALT Alkaline Phosphatase LD Total Total Protein Albumin Opiates Screen Positive Methadone Screen Negative Barbiturate Screen Negative Phencyclidine Screen Negative Ur Amphetamines Screen Negative MDMA (Ecstasy) Screen Negative Benzodiazepines Screen Negative Cocaine Screen Negative U Marijuana (THC) Screen Negative Blood Type Antibody Screen 10/28/17 10/28/17 10/28/17 07:30 07:30 07:30 WBC RBC Hgb Hct MCV MCH MCHC RDW Plt Count MPV Neutrophils % Lymphocytes % Monocytes % Eosinophils % Basophils % Retic Count 17.83 H* Sodium 142 Potassium 3.7 Chloride 111 H Carbon Dioxide 21 Anion Gap 10 BUN 20 H D Creatinine 0.6 L Creat Clearance w eGFR > 60 Random Glucose 97 Lactic Acid 1.5 Calcium 8.1 L Phosphorus 3.2 Magnesium 1.7 L Total Bilirubin 5.0 H D AST 64 H D ALT 21 Alkaline Phosphatase 139 H LD Total 723 H D Total Protein 6.9 Albumin 3.5 Opiates Screen Methadone Screen Barbiturate Screen Phencyclidine Screen Ur Amphetamines Screen MDMA (Ecstasy) Screen Benzodiazepines Screen Cocaine Screen U Marijuana (THC) Screen Blood Type Antibody Screen 10/28/17 09:25 WBC RBC Hgb Hct MCV MCH MCHC RDW Plt Count MPV Neutrophils % Lymphocytes % Monocytes % Eosinophils % Basophils % Retic Count Sodium Potassium Chloride Carbon Dioxide Anion Gap BUN Creatinine Creat Clearance w eGFR Random Glucose Lactic Acid Calcium Phosphorus Magnesium Total Bilirubin AST ALT Alkaline Phosphatase LD Total Total Protein Albumin Opiates Screen Methadone Screen Barbiturate Screen Phencyclidine Screen Ur Amphetamines Screen MDMA (Ecstasy) Screen Benzodiazepines Screen Cocaine Screen U Marijuana (THC) Screen Blood Type O POSITIVE Antibody Screen Negative ASSESSMENT AND PLAN: This is a 32 year old man with a history of sickle cell disease, sickle cell crisis with acute chest syndrome, CVA who presented to the ED with severe pain in both legs. 1. Acute hypoxic respiratory failure secondary to sepsis from pneumonia, possible acute chest syndrome - Transferred to ICU - Continue Rocephin, Zithromax 2. Sickle cell crisis - Continue IV fluid, oxygen, deferasirox, hydroxyurea 3. Anemia secondary to sickle cell disease/crisis - Anemia worse - Has multiple alloantibodies, history of hyperhemolysis 4. Nicotine dependence - Continue nicotine patch 5. Plan for transfer to [facility] for further treatment
[2017-10-30 00:11] LABS: HGB SOLUBILITY Positive (Negative); Hgb A 0 % (96.4-98.8); Hgb C 0 % (0.0); Hgb S 82.1 % (0.0)
== END 2017-10-28 16:13 | disposition short-term general hospital (02) | DRG 811 ==
LOC: JER 02:31 → JERBED 06:21 → J6S 09:19 → JICU 10-28 14:57
PROVIDERS: ADMIT Internal Medicine; ATTEND Internal Medicine
DX: D57.00 Hb-SS disease with crisis, unspecified (principal); A41.9 Sepsis, unspecified organism; J18.9 Pneumonia, unspecified organism; J96.01 Acute respiratory failure with hypoxia; D59.9 Acquired hemolytic anemia, unspecified; F17.210 Nicotine dependence, cigarettes, uncomplicated; Z86.73 Personal history of transient ischemic attack (TIA), and cerebral infarction without residual deficits
CPT/HCPCS: 36415; 71045-TC-FY; 80053; 80307; 81003; 81015; 83021; 83605; 83615; 83735; 84100; 85025; 85044; 85660; 86850; 86900; 86901; 87040; 87086; 93005; 93010; 99285-25; J0131; J7030; J8999